=== PATIENT | female | born 1935 | race Caucasian/White ===

== ENCOUNTER 2018-09-01 11:42 | Inpatient (IN) ==
[2018-09-01] MEDS ORDERED: Mag Hydrox/Al Hydrox/Simeth 30 ML UDC PO PRN (18:11)
[2018-09-01] MEDS ORDERED: cloNIDine HCl 0.1 MG TABLET PO PRN (18:13)
[2018-09-01] MEDS: *HR* Rivaroxaban 10 MG TABLET PO SCH (21:23)
[2018-09-01] MEDS: Melatonin 3 MG TABLET PO PRN (21:26)
[2018-09-02] MEDS: Acetaminophen 325 MG TABLET PO PRN ×3 (03:55→22:14)
[2018-09-02 05:39] LABS: INR 2.1; Prothrombin Time 23.4 Seconds (9.4-12.1)
[2018-09-02] MEDS: amLODIPine 5 MG TABLET PO SCH (08:17)
[2018-09-02] MEDS: Lisinopril 20 MG TABLET PO SCH (08:17)
[2018-09-02] MEDS: Metoprolol XL (24 HR) Succ 25 MG TAB.ER.24H PO SCH (08:18)
[2018-09-02] MEDS: Furosemide 40 MG TABLET PO SCH (08:18)
[2018-09-02] MEDS: Aspirin Enteric Coated 81 MG Tablet PO SCH (08:19)
[2018-09-02 08:55] LABS: Basophils # 0.1 K/mcL (0.0-0.2); Basophils % 0.8 %; Eosinophils # 0.1 K/mcL (0.0-0.6); Eosinophils % 0.6 %; Hematocrit 33.4 % (35.3-44.9); Hemoglobin 10.7 g/dL (11.5-15.4); Immature Granulocytes % 0.4 % (0-4); Lymphocytes # 0.9 K/mcL (0.6-4.6); Lymphocytes % 10.3 %; Mean Corpuscular Hemoglobin 30.4 pg (28.0-33.3); Mean Corpuscular Volume 94.9 fL (83.0-100.0); Mean Platelet Volume 10.1 fL (9.4-12.4); Monocytes # 0.8 K/mcL (0.0-1.3); Monocytes % 9.7 %; Neutrophils # 6.5 K/mcL (1.6-8.9); Platelet Count 292 K/mcL (140-400); Red Blood Count 3.52 M/mcL (3.82-4.97); Red Cell Distribution Width 14.5 % (11.5-14.5); Segmented Neutrophils % 78.2 %; White Blood Count 8.3 K/mcL (4.3-11.1)
[2018-09-02 09:17] LABS: Albumin 3.6 g/dL (3.5-5.7); Albumin/Globulin Ratio 1.2 (1.1-2.2); Bilirubin,Total 0.6 mg/dL (0.3-1.0); Calcium 9.3 mg/dL (8.6-10.3); Globulin 3.1 g/dL (2.4-3.5); Magnesium 2.2 mg/dL (1.6-2.6); Total Protein 6.7 g/dL (6.4-8.9)
--- NOTE | 2018-09-02 10:47 | Internal Med History&Physical ---
Date of Encounter: 09/02/18 Time of Encounter: 10:42 Assessment and Plan (1) CVA (cerebral vascular accident) Current visit: Yes Status: Acute Patient treated at a local hospital for an acute CVA resulting in slight dysarthria and right hemiplegia. Patient is right sided dominant. No acute neurological changes have been noted in her exam per medical records since her admission at this facility. Patient denies any difficulty with swallow. We will have speech therapy evaluate due to patient's dysarthria. Therapy evaluation is pending with further recommendations. We will continue with current medications. We will keep a systolic blood pressure goal of less than 160. Patient with severe hypertension during her initial admission. Qualifiers: CVA mechanism: unspecified Qualified Code(s): I63.9 - Cerebral infarction, unspecified (2) HTN (hypertension) Current visit: Yes Status: Chronic Patient's vital signs have been stable since her admission. Patient with severe hypertension during her initial admission to [facility]. We will maintain a systolic blood pressure goal of less than 160. We will continue with current medications. Patient with when necessary clonidine for any systolic blood pressures greater than 160. Qualifiers: Hypertension type: essential hypertension Qualified Code(s): I10 - Essential (primary) hypertension (3) Diabetes Current visit: Yes Status: Chronic No acute issues. Patient continues with fingersticks with her readings have been maintain less than 150. We will continue with current sliding scale coverage. Qualifiers: Diabetes mellitus type: type 2 Diabetes mellitus terminal worker insulin use: without terminal worker use Diabetes mellitus complication status: with kidney complications Diabetes mellitus complication detail: with chronic kidney disease Chronic kidney disease stage: stage 3 (moderate) Qualified Code(s): E11.22 - Type 2 diabetes mellitus with diabetic chronic kidney disease; N18.3 - Chronic kidney disease, stage 3 (moderate) (4) Ulcerative colitis Current visit: Yes Status: Chronic No acute issues at this time. Patient denies any abdominal cramping or diarrhea. Will continue on current medications and monitor closely Qualifiers: Ulcerative colitis location: unspecified ulcerative colitis location Digestive disease complication type: unspecified complication Qualified Code(s): K51.919 - Ulcerative colitis, unspecified with unspecified complications (5) Atrial fibrillation Current visit: Yes Status: Chronic Patient continues with atrial fibrillation with controlled rate less than 100. We will continue on Xarelto. Qualifiers: Atrial fibrillation type: paroxysmal Qualified Code(s): I48.0 - Paroxysmal atrial fibrillation (6) CKD (chronic kidney disease) Current visit: Yes Status: Chronic No acute issues. Patient's most recent creatinine is at 1.19. We will continue with current medications and monitor patient's renal status through serial labs Qualifiers: Chronic kidney disease stage: stage 3 (moderate) Qualified Code(s): N18.3 - Chronic kidney disease, stage 3 (moderate) Internal Medicine - H&P: HPI Chief complaint: Left CVA Admitted From: Hospital to Hospital Transfer Plans for Post Hospital Care: Home History of present illness: Ms. Edwards is a 83 year old female, who was transferred to this facility from [facility] after being treated for an acute left CVA resulting in right hemiplegia and dysarthria. Patient was admitted at [facility] on 08/26/18 due to weakness to her right extremities and was also found to be very hypertensive with a systolic greater than 190. Patient had a medical history of atrial fibrillation and was on Xarelto at time of admission. Also history of hypertension, diabetes, CK D and ulcerative colitis. Patient's recovery at Hospital was uneventful and she was eventually transferred to this facility for further rehabilitation due to her hemiplegia and generalized weakness. Patient currently appears relaxed and denies any acute issues. She continues with her right hemiplegia and noted mild dysarthria. Patient denies any difficulty with swallow. Denies any discomforts or shortness of breath. Past Med Surg Social Fam HX - Past Medical History Medical history: atrial fibrillation, CHF, diabetes, GERD, hypertension, other Additional medical history: UC Psychiatric history: anxiety - Past Surgical History Surgical History: appendectomy, hysterectomy, CHEVY/BSO Additional surgical history: left toe removed, Tonsils removed - Social History Smoking Status: Never smoker Smokeless Tobacco Status: No Alcohol use: none Drug use: none - Family History Mother Living Status: Hx Family Cardiac Disorders: Yes Hx Family Respiratory Disorders: No Hx Family Cancer: No Hx Family GI Disorders: No Hx Family Endocrine Disorder: Yes Hx Family Neuromuscular Disorders: No Hx Family Neurologic Disorders: No Hx Family HEENT Disorders: No Hx Family Autoimmune Disorders: No Father Living Status: Hx Family Cardiac Disorders: Yes Hx Family Respiratory Disorders: No Hx Family Cancer: No Hx Family GI Disorders: No Hx Family Endocrine Disorder: No Hx Family Neuromuscular Disorders: No Hx Family Neurologic Disorders: No Hx Family HEENT Disorders: No Hx Family Autoimmune Disorders: No Internal Medicine - H&P: Meds Acetaminophen [Tylenol] 1,000 mg PO 1-2XD PRN 03/10/15 [History] Furosemide [Lasix] 40 mg PO QAM 03/10/15 [History] Mesalamine [Apriso] 0.75 gm PO QAM 03/10/15 [History] Omeprazole [PriLOSEC] 20 mg PO QAM 03/10/15 [History] Potassium Chloride [K-Tab ER] 20 meq PO DAILY 11/28/15 [History] Metoprolol Succinate 25 mg PO QAM 01/24/17 [History] Aspirin Enteric Coated [Aspirin EC] 81 mg PO QAM 08/28/18 [History] Lisinopril [Zestril] 40 mg PO QAM 08/28/18 [History] Rivaroxaban [Xarelto] 20 mg PO 1700 08/28/18 [History] Atorvastatin [Lipitor] 80 mg PO HS 30 Days #30 tablet 09/01/18 [Rx] Paroxetine [Paxil] 10 mg PO DAILY #30 tablet 09/01/18 [Rx] amLODIPine [Norvasc] 5 mg PO DAILY #30 tablet 09/01/18 [Rx] Allergy/AdvReac Type Severity Reaction Status Date / Time ampicillin Allergy Hives Verified 08/28/18 10:05 morphine AdvReac Hallucinati Verified 08/28/18 10:05 ng All Systems PM: A 10-system review of systems was performed and is negative for pertinent findings except as documented above in the HPI. - Constitutional Constitutional: as per HPI - EENT Eyes: as per HPI Ears: as per HPI, no ear discharge, no ear pain, no tinnitus Nose, mouth and throat: as per HPI, no dysphagia, no nasal discharge, no neck pain, no sore throat - Breasts Breasts: as per HPI - Cardiovascular Cardiovascular ROS IM: as per HPI, no chest pain, no diaphoresis, no dyspnea, no lightheadedness, no palpitations, no syncope - Respiratory Respiratory: as per HPI, no cough, no dyspnea, no wheezing, no excessive phlegm production - Gastrointestinal Gastrointestinal: as per HPI, no abdominal pain, no diarrhea, no hematemesis, no hematochezia, no melena, no nausea, no vomiting - Genitourinary Genitourinary: as per HPI, no change in urinary stream, no dysuria, no flank pain, no hematuria - Musculoskeletal Musculoskeletal ROS IM: as per HPI, no numbness, no tingling - Integumentary Integumentary IM: as per HPI, no rash, no unusual bruising - Neurological Neurological ROS: as per HPI, no confusion, no convulsions, no focal weakness, no numbness, no tingling, no tremor(s) - Psychiatric Psychiatric: as per HPI - Hematologic/Lymphatic Hematologic/Lymphatic: no easy bruising - Constitutional Vitals: Temp Pulse Resp BP Pulse Ox 97.8 F 75 26 139/80 95 09/02/18 07:21 09/02/18 07:21 09/02/18 07:21 09/02/18 07:21 09/02/18 07:21 General appearance: Present: A&O X 3, pleasant, answers questions appropriately - Head Head exam: Present: atraumatic, normocephalic - Eye Eye exam: Present: PERRL, conjuntiva pink, sclera anicteric Pupils: Present: PERRL - Neck Neck exam general surgery: Present: supple, trachea midline. Absent: lymphadenopathy - Respiratory Respiratory exam: Present: decreased breath sounds, CTAB. Absent: accessory muscle use, rales, rhonchi, wheezes - Cardiovascular Cardiovascular exam: Present: RRR, +S1, +S2. Absent: diastolic murmur, gallop, rubs, systolic murmur - GI/Abdominal GI/Abdominal exam: Present: normal bowel sounds, soft, no peritoneal signs. Absent: distended, tenderness - Extremities Exam Extremities exam: Present: warm, radial pulses palpable and symmetrical. Absent: calf tenderness, cyanotic, pedal edema - Neurological Exam Neurological exam: Present: CN II-XII intact, oriented X3, facial droop, speech deficit. Absent: pronater drift Additional comments: Patient with slight right facial droop and slight dysarthria. Right hemiplegic. Left extremities with muscle strength 5/5 - Skin Skin exam: Present: dry, intact Internal Med - H&P Results - Labs CBC & Chem 7: 09/02/18 08:02 09/02/18 08:02 Labs: Short CBC 09/02/18 Range/Units 08:02 WBC 8.3 (4.3-11.1) K/mcL Hgb 10.7 L (11.5-15.4) g/dL Hct 33.4 L (35.3-44.9) % Plt Count 292 (140-400) K/mcL Neutrophils # 6.5 (1.6-8.9) K/mcL BMP 09/02/18 08:02 Sodium 137 Potassium 4.0 Chloride 108 H Carbon Dioxide 22 L BUN 33 H Creatinine 1.19 Glucose 127 H Calcium 9.3 Liver Function 09/02/18 Range/Units 08:02 Total Bilirubin 0.6 (0.3-1.0) mg/dL AST 12 L (13-39) Units/L ALT 10 (7-52) Units/L Alkaline Phosphatase 66 (34-104) Units/L Albumin 3.6 (3.5-5.7) g/dL
[2018-09-02] MEDS: Ondansetron ODT 4 MG TAB.RAPDIS SL PRN (12:11)
--- NOTE | 2018-09-02 15:44 | Psychological Evaluation ---
Date of Encounter: 09/02/18 Time of Encounter: 10:00 History of Present Illness History of present illness: Ms. Edwards is a 83 year old female patient with a left MCA stroke by clinical history. She had sudden onset or speech changes, facial droop, right dense hemiparesis about a week ago. She had no other associated symptoms including no chest pain or breathing problems. She was admitted to [facility] and had supportive care. She notes that she was on Coumadin which was therapeutic at the time of her stroke. She has had hypertension and states this is been hard to control. She was admitted here for rehabilitation. Past Medical History - Psychiatric History Psychiatric history: Reports: no psych history Home Medications and Allergies Acetaminophen [Tylenol] 1,000 mg PO 1-2XD PRN 03/10/15 [History] Furosemide [Lasix] 40 mg PO QAM 03/10/15 [History] Mesalamine [Apriso] 0.75 gm PO QAM 03/10/15 [History] Omeprazole [PriLOSEC] 20 mg PO QAM 03/10/15 [History] Potassium Chloride [K-Tab ER] 20 meq PO DAILY 11/28/15 [History] Metoprolol Succinate 25 mg PO QAM 01/24/17 [History] Aspirin Enteric Coated [Aspirin EC] 81 mg PO QAM 08/28/18 [History] Lisinopril [Zestril] 40 mg PO QAM 08/28/18 [History] Rivaroxaban [Xarelto] 20 mg PO 1700 08/28/18 [History] Atorvastatin [Lipitor] 80 mg PO HS 30 Days #30 tablet 09/01/18 [Rx] Paroxetine [Paxil] 10 mg PO DAILY #30 tablet 09/01/18 [Rx] amLODIPine [Norvasc] 5 mg PO DAILY #30 tablet 09/01/18 [Rx] Allergy/AdvReac Type Severity Reaction Status Date / Time ampicillin Allergy Hives Verified 08/28/18 10:05 morphine AdvReac Hallucinati Verified 08/28/18 10:05 ng Social History - Social History Social History: for 59 years. Lives with adult daughter for the past 8 years in [place]. 2 sons are in [place]. 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 High school diploma. - Tobacco Use Smoking Status: Never smoker - Alcohol Use Alcohol Use: none - Drug Use Drug Use: none Cognitive/Emotional Assessment - Cognitive Ability Level of Alertness: Alert Orientation: Person, Place, Time Speech Pattern: Normal rate, Normal rhythm, Normal tone, Appropriate Thought Process: Intact Calculations: Able to spell WORLD backw Additional Findings: Able to recall 0/3 words after 5min and 1/3 categorical cue. Digits forward 6 and 4 digits backward. Knew pres, previous pres, gov. Able to perform mental mathematics and serial 3's from 20. - Emotional Status Mood Description: Anxious Affect Description: Tearful Coping Ability: Unsure about ability to cope Additional Findings: Processed mortality and fear of . Assessment & Plan - Prognosis Prognosis: Good - Treatment Plan Treatment Plan/Recommendations: Assist with developing and training coping strategies for anxiety and adjusting to changes in functioning since CVA. Further eval cognition. Treatment Frequency: weekly Next Session Date: 09/09/18 Procedures - Participants Therapy Participant: Patient - Session Time Session Start Time: 10:00 Session Stop Time: 10:30
[2018-09-02] MEDS: *HR* Rivaroxaban 10 MG TABLET PO SCH (17:01)
[2018-09-02] MEDS: Mesalamine 250 MG CAPSULE.ER PO SCH (17:01)
[2018-09-02] MEDS: Melatonin 3 MG TABLET PO PRN (22:14)
[2018-09-03] MEDS: Mesalamine 250 MG CAPSULE.ER PO SCH (08:59)
[2018-09-03] MEDS: Furosemide 40 MG TABLET PO SCH (09:00)
[2018-09-03] MEDS: Aspirin Enteric Coated 81 MG Tablet PO SCH (09:00)
[2018-09-03] MEDS: Metoprolol XL (24 HR) Succ 25 MG TAB.ER.24H PO SCH (09:00)
[2018-09-03] MEDS: Lisinopril 20 MG TABLET PO SCH (09:01)
[2018-09-03] MEDS: amLODIPine 5 MG TABLET PO SCH (09:01)
--- NOTE | 2018-09-03 11:08 | Internal Med Progress Note ---
Date of Encounter: 09/03/18 Time of Encounter: 11:06 - Assessment and plan (1) CVA (cerebral vascular accident) Current Visit: Yes Status: Acute Assessment and plan: No acute issues. Patient's neurological exam remains unchanged since her admission, which shows right hemiplegia. Patient has patient's pain and therapy, but complaint of slight fatigue. We will continue with current plan of care and medications. Vital signs stable. Qualifiers: CVA mechanism: unspecified Qualified Code(s): I63.9 - Cerebral infarction, unspecified (2) HTN (hypertension) Current Visit: Yes Status: Chronic Assessment and plan: No acute issues. Patient's blood pressures remained stable. We will continue with goal of less than 160 systolic. We will continue with current medications Qualifiers: Hypertension type: essential hypertension Qualified Code(s): I10 - Essential (primary) hypertension (3) Diabetes Current Visit: Yes Status: Chronic Assessment and plan: No acute issues. Patient's fingerstick show most readings less than 150. We will continue with current coverage. Qualifiers: Diabetes mellitus type: type 2 Diabetes mellitus fpc insulin use: without fpc use Diabetes mellitus complication status: with kidney complications Diabetes mellitus complication detail: with chronic kidney disease Chronic kidney disease stage: stage 3 (moderate) Qualified Code(s): E11.22 - Type 2 diabetes mellitus with diabetic chronic kidney disease; N18.3 - Chronic kidney disease, stage 3 (moderate) (4) Ulcerative colitis Current Visit: Yes Status: Chronic Assessment and plan: No acute issues. Patient denies any loose stools or abdominal cramping. Will continue with current plan of care Qualifiers: Ulcerative colitis location: unspecified ulcerative colitis location Digestive disease complication type: unspecified complication Qualified Code(s): K51.919 - Ulcerative colitis, unspecified with unspecified complications (5) Atrial fibrillation Current Visit: Yes Status: Chronic Assessment and plan: No acute issues. Patient's heart rate remains controlled at less than 100. Continue on current medications. Qualifiers: Atrial fibrillation type: paroxysmal Qualified Code(s): I48.0 - Paroxysmal atrial fibrillation (6) CKD (chronic kidney disease) Current Visit: Yes Status: Chronic Assessment and plan: No acute issues. Patient's last creatinine was 1.19. We will continue with current medications and monitor patient's renal status Qualifiers: Chronic kidney disease stage: stage 3 (moderate) Qualified Code(s): N18.3 - Chronic kidney disease, stage 3 (moderate) - Subjective Interval history: Patient appears relaxed currently denies any discomforts or shortness of breath. Patient states she became fatigued during her therapy but relates no issues. - Constitutional Vitals: Temp Pulse Resp BP Pulse Ox 98.3 F 70 16 129/71 94 09/03/18 07:36 09/03/18 07:36 09/03/18 07:36 09/03/18 07:36 09/03/18 07:36 General appearance: Present: A&O X 3, pleasant, answers questions appropriately - Head Head exam: Present: atraumatic, normocephalic - Eye Eye exam: Present: PERRL, conjuntiva pink, sclera anicteric Pupils: Present: PERRL - Neck Neck exam general surgery: Present: supple, trachea midline. Absent: lymphadenopathy - Respiratory Respiratory exam: Present: CTAB. Absent: accessory muscle use, rales, rhonchi, wheezes - Cardiovascular Cardiovascular exam: Present: RRR, +S1, +S2. Absent: diastolic murmur, gallop, rubs, systolic murmur - GI/Abdominal GI/Abdominal exam: Present: normal bowel sounds, soft, no peritoneal signs. Absent: distended, tenderness - Extremities Exam Extremities exam: Present: warm, radial pulses palpable and symmetrical. Absent: calf tenderness, cyanotic, pedal edema - Neurological Exam Neurological exam: Present: CN II-XII intact, oriented X3, facial droop, speech deficit. Absent: pronater drift Additional comments: Patient continues with right hemiplegia. Left extremity is 5/5 muscle strength. Slight right facial droop with slight dysarthria noted. - Skin Skin exam: Present: dry, intact Internal Medicine: Result - Labs CBC & Chem 7: 09/02/18 08:02 09/02/18 08:02 - ABG Interpretation ABG results: PT/INR, D-dimer PT 23.4 Seconds (9.4-12.1) H D 09/02/18 05:10 Consult Discharge Plan - Plan Referrals: Tfifany Villasenor MD [Primary Care Provider] -
[2018-09-03] MEDS: *HR* Rivaroxaban 10 MG TABLET PO SCH (16:16)
[2018-09-03] MEDS: Acetaminophen 325 MG TABLET PO PRN (21:21)
[2018-09-03] MEDS: Melatonin 3 MG TABLET PO PRN (21:21)
[2018-09-04] MEDS: amLODIPine 5 MG TABLET PO SCH (09:46)
[2018-09-04] MEDS: Lisinopril 20 MG TABLET PO SCH (09:46)
[2018-09-04] MEDS: Mesalamine 250 MG CAPSULE.ER PO SCH (09:46)
[2018-09-04] MEDS: Furosemide 40 MG TABLET PO SCH (09:47)
[2018-09-04] MEDS: Metoprolol XL (24 HR) Succ 25 MG TAB.ER.24H PO SCH (09:47)
[2018-09-04] MEDS: Aspirin Enteric Coated 81 MG Tablet PO SCH (09:47)
[2018-09-04] MEDS: Acetaminophen 325 MG TABLET PO PRN ×2 (09:49→20:41)
[2018-09-04 11:28] LABS: Bilirubin,Urine Negative (Negative); Blood,Urine Negative (Negative); Clarity,Urine Cloudy (Clear); Color,Urine Yellow (Yellow); Glucose,Urine (UA) Normal (Normal); Ketones,Urine Negative (Negative); Leukocyte Esterase,Urine Small (Negative); Nitrite,Urine Negative (Negative); PH,Urine 5.5 pH Units (5.0-8.0); Protein,Urine 100 mg/dL (Neg-Trace); Urobilinogen,Urine Normal (Normal)
--- NOTE | 2018-09-04 11:30 | Internal Med Progress Note ---
Date of Encounter: 09/04/18 Time of Encounter: 11:28 - Assessment and plan (1) CVA (cerebral vascular accident) Current Visit: Yes Status: Acute Assessment and plan: No acute issues. Patient's neurological exam remains unchanged since her admission, which shows right hemiplegia. Patient has patient's pain and therapy, but complaint of slight fatigue. We will continue with current plan of care and medications. Vital signs stable. Qualifiers: CVA mechanism: unspecified Qualified Code(s): I63.9 - Cerebral infarction, unspecified (2) HTN (hypertension) Current Visit: Yes Status: Chronic Assessment and plan: No acute issues. Patient's blood pressures remained stable. We will continue with goal of less than 160 systolic. We will continue with current medications Qualifiers: Hypertension type: essential hypertension Qualified Code(s): I10 - Essential (primary) hypertension (3) Diabetes Current Visit: Yes Status: Chronic Assessment and plan: No acute issues. Patient's fingerstick show most readings less than 150. We will continue with current coverage. Qualifiers: Diabetes mellitus type: type 2 Diabetes mellitus snf insulin use: without snf use Diabetes mellitus complication status: with kidney complications Diabetes mellitus complication detail: with chronic kidney disease Chronic kidney disease stage: stage 3 (moderate) Qualified Code(s): E11.22 - Type 2 diabetes mellitus with diabetic chronic kidney disease; N18.3 - Chronic kidney disease, stage 3 (moderate) (4) Ulcerative colitis Current Visit: Yes Status: Chronic Assessment and plan: No acute issues. Patient denies any loose stools or abdominal cramping. Will continue with current plan of care Qualifiers: Ulcerative colitis location: unspecified ulcerative colitis location Digestive disease complication type: unspecified complication Qualified Code(s): K51.919 - Ulcerative colitis, unspecified with unspecified complications (5) Atrial fibrillation Current Visit: Yes Status: Chronic Assessment and plan: No acute issues. Patient's heart rate remains controlled at less than 100. Continue on current medications to include Xarelto Qualifiers: Atrial fibrillation type: paroxysmal Qualified Code(s): I48.0 - Paroxysmal atrial fibrillation (6) CKD (chronic kidney disease) Current Visit: Yes Status: Chronic Assessment and plan: No acute issues. Patient's last creatinine was 1.19. We will continue with current medications and monitor patient's renal status Qualifiers: Chronic kidney disease stage: stage 3 (moderate) Qualified Code(s): N18.3 - Chronic kidney disease, stage 3 (moderate) - Time Spent With Patient less than 15 minutes - Subjective Interval history: Patient appears relaxed currently denies any discomforts or shortness of breath. - Constitutional Vitals: Temp Pulse Resp BP Pulse Ox 97.6 F 60 16 144/72 97 09/04/18 07:00 09/04/18 07:00 09/04/18 07:00 09/04/18 07:00 09/04/18 07:00 General appearance: Present: A&O X 3, pleasant, answers questions appropriately - Head Head exam: Present: atraumatic, normocephalic - Eye Eye exam: Present: PERRL, conjuntiva pink, sclera anicteric Pupils: Present: PERRL - Neck Neck exam general surgery: Present: supple, trachea midline. Absent: lymphadenopathy - Respiratory Respiratory exam: Present: CTAB. Absent: accessory muscle use, rales, rhonchi, wheezes - Cardiovascular Cardiovascular exam: Present: RRR, +S1, +S2. Absent: diastolic murmur, gallop, rubs, systolic murmur - GI/Abdominal GI/Abdominal exam: Present: normal bowel sounds, soft, no peritoneal signs. Absent: distended, tenderness - Extremities Exam Extremities exam: Present: warm, radial pulses palpable and symmetrical. Absent: calf tenderness, cyanotic, pedal edema - Neurological Exam Neurological exam: Present: CN II-XII intact, oriented X3, facial droop, speech deficit. Absent: pronater drift Additional comments: Patient continues with right hemiplegia. Left extremity is 5/5 muscle strength. Continued facial droop with dysarthria. - Skin Skin exam: Present: dry, intact Internal Medicine: Result - Labs CBC & Chem 7: 09/02/18 08:02 09/02/18 08:02 - ABG Interpretation ABG results: PT/INR, D-dimer PT 23.4 Seconds (9.4-12.1) H D 09/02/18 05:10 Consult Discharge Plan - Plan Referrals: Tiffany Villasenor MD [Primary Care Provider] -
[2018-09-04 11:36] LABS: WBC,Urine 30-50 per hpf (0-3)
[2018-09-04 11:37] LABS: Bacteria,Urine Moderate per hpf (None-Few); Squamous Epithelial Cell,Urine Few per lpf (None-Few)
[2018-09-04] MEDS: *HR* Rivaroxaban 15 MG TABLET PO SCH (20:41)
[2018-09-04] MEDS: Melatonin 3 MG TABLET PO PRN (20:43)
[2018-09-05] MEDS: Lisinopril 20 MG TABLET PO SCH (09:25)
[2018-09-05] MEDS: Furosemide 40 MG TABLET PO SCH (09:25)
[2018-09-05] MEDS: Metoprolol XL (24 HR) Succ 25 MG TAB.ER.24H PO SCH (09:25)
[2018-09-05] MEDS: Mesalamine 250 MG CAPSULE.ER PO SCH (09:26)
[2018-09-05] MEDS: Aspirin Enteric Coated 81 MG Tablet PO SCH (09:26)
[2018-09-05] MEDS: amLODIPine 5 MG TABLET PO SCH (09:27)
--- NOTE | 2018-09-05 18:04 | Internal Med Progress Note ---
Date of Encounter: 09/05/18 Time of Encounter: 15:33 - Subjective Interval history: - Assessment and plan (1) CVA (cerebral vascular accident) Current Visit: Yes Status: Acute Assessment and plan: No acute issues. Patient's neurological exam with no acute changes , which shows right hemiplegia. Patient has patient's pain and therapy, but complaint of slight fatigue at times We will continue with current plan of care and medications. Vital signs stable. Qualifiers: CVA mechanism: unspecified Qualified Code(s): I63.9 - Cerebral infarction, unspecified (2) HTN (hypertension) Current Visit: Yes Status: Chronic Assessment and plan: No acute issues. Patient's blood pressures remained stable. We will continue with goal of less than 160 systolic. We will continue with current medications Qualifiers: Hypertension type: essential hypertension Qualified Code(s): I10 - E ssential (primary) hypertension (3) Diabetes Current Visit: Yes Status: Chronic Assessment and plan: No acute issues. Patient's fingerstick show most readings less than 150. We will continue with current coverage. Qualifiers: Diabetes mellitus type: type 2 Diabetes mellitus termite control technician insulin use: without termite control technician use Diabetes mellitus complication status: with kidney complications Diabetes mellitus complication detail: with chronic kidney disease Chronic kidney disease stage: stage 3 (moderate) Qualified Code(s): E11.22 - Type 2 diabetes mellitus with diabetic chronic kidney disease; N18.3 - Chronic kidney disease, stage 3 (moderate) (4) Ulcerative colitis Current Visit: Yes Status: Chronic Assessment and plan: No acute issues. Patient denies any loose stools or abdominal cramping. no melana Will continue with current plan of care Qualifiers: Ulcerative colitis location: unspecified ulcerative colitis location Digestive disease complication type: unspecified complication Qualified Code(s): K51.919 - Ulcerative colitis, unspecified with unspecified complications (5) Atrial fibrillation Current Visit: Yes Status: Chronic Assessment and plan: No acute issues. Patient's heart rate remains controlled at less than 100. Continue on current medications to include Xarelto Qualifiers: Atrial fibrillation type: paroxysmal Qualified Code(s): I48.0 - Paroxysmal atrial fibrillation (6) CKD (chronic kidney disease) Current Visit: Yes Status: Chronic Assessment and plan: No acute issues. Patient's last creatinine was 1.19. We will continue with current medications and monitor patient's renal status Qualifiers: Chronic kidney disease stage: stage 3 (moderate) Qualified Code(s): N18.3 - Chronic kidney disease, stage 3 (moderate) - Time Spent With Patient less than 15 minutes - Subjective Interval history: Patient appears relaxed and ate well. currently denies any discomforts or shortness of breath. - EXAM General appearance: Present: alert, pleasant - Head Head exam: Present: atraumatic, normocephalic - Eye Eye exam: Present: PERRL, conjuntiva pink, sclera anicteric Pupils: Present: PERRL - Neck Neck exam general surgery: Present: supple, trachea midline. Absent: lymphadenopathy - Respiratory Respiratory exam: Present: CTAB. Absent: accessory muscle use, rales, rhonchi, wheezes - Cardiovascular Cardiovascular exam: Present: RRR, +S1, +S2. Absent: diastolic murmur, gallop, rubs, systolic murmur - GI/Abdominal GI/Abdominal exam: Present: normal bowel sounds, soft, no peritoneal signs. Absent: distended, tenderness - Extremities Exam Extremities exam: Present: warm, radial pulses palpable and symmetrical. Absent: calf tenderness, cyanotic, pedal edema - Neurological Exam Neurological exam: Present: CN II-XII intact, oriented X3, facial droop, speech deficit. Absent: pronater drift Additional comments: Patient continues with right hemiplegia. Left extremity is 5/5 muscle strength. Continued facial droop with dysarthria. - Skin Skin exam: Present: dry, intact - Constitutional Vitals: Temp Pulse Resp BP Pulse Ox 98.0 F 65 15 162/78 97 09/05/18 07:00 09/05/18 07:00 09/05/18 07:00 09/05/18 07:00 09/05/18 07:00 General appearance: Present: A&O X 3, pleasant, answers questions appropriately Internal Medicine: Result - Labs CBC & Chem 7: 09/02/18 08:02 09/02/18 08:02 - ABG Interpretation ABG results: PT/INR, D-dimer PT 23.4 Seconds (9.4-12.1) H D 09/02/18 05:10 Consult Discharge Plan - Plan Referrals: Tiffany Villasenor MD [Primary Care Provider] -
[2018-09-05] MEDS: Melatonin 3 MG TABLET PO PRN (21:31)
[2018-09-05] MEDS: Acetaminophen 325 MG TABLET PO PRN (21:31)
[2018-09-05] MEDS: *HR* Rivaroxaban 15 MG TABLET PO SCH (21:31)
[2018-09-05] MEDS: Bisacodyl 10 MG RECTAL SUPPOSITORY RC PRN (21:32)
[2018-09-06] MEDS: amLODIPine 5 MG TABLET PO SCH (08:34)
[2018-09-06] MEDS: Metoprolol XL (24 HR) Succ 25 MG TAB.ER.24H PO SCH (08:35)
[2018-09-06] MEDS: Aspirin Enteric Coated 81 MG Tablet PO SCH (08:35)
[2018-09-06] MEDS: Lisinopril 20 MG TABLET PO SCH (08:35)
[2018-09-06] MEDS: Mesalamine 250 MG CAPSULE.ER PO SCH (08:35)
[2018-09-06] MEDS: Furosemide 40 MG TABLET PO SCH (08:35)
[2018-09-06] MEDS: Acetaminophen 325 MG TABLET PO PRN (17:06)
--- NOTE | 2018-09-06 19:11 | Internal Med Progress Note ---
Date of Encounter: 09/06/18 Time of Encounter: 18:10 - Subjective Interval history: - Assessment and plan (1) CVA (cerebral vascular accident) Current Visit: Yes Status: Acute Assessment and plan: No acute issues. Patient's neurological exam with no acute changes , which shows right hemiplegia. Patient has patient's pain and therapy, but complaint of slight fatigue at times We will continue with current plan of care and medications. Vital signs stable. Qualifiers: CVA mechanism: unspecified Qualified Code(s): I63.9 - Cerebral infarction, unspecified (2) HTN (hypertension) Current Visit: Yes Status: Chronic Assessment and plan: No acute issues. Patient's blood pressures remained stable. We will continue with goal of less than 160 systolic. We will continue with current medications Qualifiers: Hypertension type: essential hypertension Qualified Code(s): I10 - E ssential (primary) hypertension (3) Diabetes Current Visit: Yes Status: Chronic Assessment and plan: No acute issues. Patient's fingerstick show most readings less than 150. We will continue with current coverage. Qualifiers: Diabetes mellitus type: type 2 Diabetes mellitus long term care administrator insulin use: without long term care administrator use Diabetes mellitus complication status: with kidney complications Diabetes mellitus complication detail: with chronic kidney disease Chronic kidney disease stage: stage 3 (moderate) Qualified Code(s): E11.22 - Type 2 diabetes mellitus with diabetic chronic kidney disease; N18.3 - Chronic kidney disease, stage 3 (moderate) (4) Ulcerative colitis Current Visit: Yes Status: Chronic Assessment and plan: No acute issues. Patient denies any loose stools or abdominal cramping. no melana Will continue with current plan of care Qualifiers: Ulcerative colitis location: unspecified ulcerative colitis location Digestive disease complication type: unspecified complication Qualified Code(s): K51.919 - Ulcerative colitis, unspecified with unspecified complications (5) Atrial fibrillation Current Visit: Yes Status: Chronic Assessment and plan: No acute issues. Patient's heart rate remains controlled at less than 100. Continue on current medications to include Xarelto Qualifiers: Atrial fibrillation type: paroxysmal Qualified Code(s): I48.0 - Paroxysmal atrial fibrillation (6) CKD (chronic kidney disease) Current Visit: Yes Status: Chronic Assessment and plan: No acute issues. Patient's last creatinine was 1.19. We will continue with current medications and monitor patient's renal status Qualifiers: Chronic kidney disease stage: stage 3 (moderate) Qualified Code(s): N18.3 - Chronic kidney disease, stage 3 (moderate) - Time Spent With Patient less than 15 minutes - Subjective Interval history: Patient appears relaxed and ate well. currently denies any discomforts or shortness of breath. - EXAM General appearance: Present: alert, pleasant - Head Head exam: Present: atraumatic, normocephalic - Eye Eye exam: Present: PERRL, conjuntiva pink, sclera anicteric Pupils: Present: PERRL - Neck Neck exam general surgery: Present: supple, trachea midline. Absent: lymphadenopathy - Respiratory Respiratory exam: Present: CTAB. Absent: accessory muscle use, rales, rhonchi, wheezes - Cardiovascular Cardiovascular exam: Present: RRR, +S1, +S2. Absent: diastolic murmur, gallop, rubs, systolic murmur - GI/Abdominal GI/Abdominal exam: Present: normal bowel sounds, soft, no peritoneal signs. Absent: distended, tenderness - Extremities Exam Extremities exam: Present: warm, radial pulses palpable and symmetrical. Absent: calf tenderness, cyanotic, pedal edema - Neurological Exam Neurological exam: Present: CN II-XII intact, oriented X3, facial droop, speech deficit. Absent: pronater drift Additional comments: Patient continues with right hemiplegia. Left extremity is 5/5 muscle strength. Continued facial droop with dysarthria. - Skin Skin exam: Present: dry, intact - Constitutional Vitals: Temp Pulse Resp BP Pulse Ox 98.3 F 65 16 152/86 98 09/06/18 07:00 09/06/18 07:00 09/06/18 07:00 09/06/18 07:00 09/06/18 07:00 General appearance: Present: A&O X 3, pleasant, answers questions appropriately Internal Medicine: Result - Labs CBC & Chem 7: 09/02/18 08:02 09/02/18 08:02 Labs: Urine 09/04/18 Range/Units 11:20 Urine Color Yellow (Yellow) Urine Clarity Cloudy A (Clear) Urine pH 5.5 (5.0-8.0) pH Units Ur Specific [place] 1.020 (1.010-1.025) Urine Protein 100 H (Neg-Trace) mg/dL Urine Glucose (UA) Normal (Normal) mg/dL - ABG Interpretation ABG results: PT/INR, D-dimer PT 23.4 Seconds (9.4-12.1) H D 09/02/18 05:10 Consult Discharge Plan - Plan Referrals: Tiffany Villasenor MD [Primary Care Provider] -
[2018-09-06] MEDS: *HR* Rivaroxaban 15 MG TABLET PO SCH (21:19)
[2018-09-06] MEDS: Melatonin 3 MG TABLET PO PRN (21:19)
[2018-09-07] MEDS: Metoprolol XL (24 HR) Succ 25 MG TAB.ER.24H PO SCH (08:15)
[2018-09-07] MEDS: Lisinopril 20 MG TABLET PO SCH (08:15)
[2018-09-07] MEDS: Mesalamine 250 MG CAPSULE.ER PO SCH (08:15)
[2018-09-07] MEDS: Aspirin Enteric Coated 81 MG Tablet PO SCH (08:15)
[2018-09-07] MEDS: amLODIPine 5 MG TABLET PO SCH (08:15)
[2018-09-07] MEDS: Furosemide 40 MG TABLET PO SCH (08:15)
--- NOTE | 2018-09-07 14:27 | Internal Med Progress Note ---
Date of Encounter: 09/07/18 Time of Encounter: 14:25 - Assessment and plan (1) UTI (urinary tract infection) Current Visit: Yes Status: Acute Assessment and plan: Macrobid 100 mg twice a 5 days. denies urinary symptoms. Qualifiers: Urinary tract infection type: site unspecified Hematuria presence: without hematuria Qualified Code(s): N39.0 - Urinary tract infection, site not specified (2) Diabetes Current Visit: Yes Status: Chronic Assessment and plan: continue fingerstick bloods sugars. continue current medication. controlled. Qualifiers: Diabetes mellitus type: type 2 Diabetes mellitus intermission coordinator insulin use: without nursing home use Diabetes mellitus complication status: with kidney complications Diabetes mellitus complication detail: with chronic kidney disease Chronic kidney disease stage: stage 3 (moderate) Qualified Code(s): E11.22 - Type 2 diabetes mellitus with diabetic chronic kidney disease; N18.3 - Chronic kidney disease, stage 3 (moderate) (3) Hypertension Current Visit: Yes Status: Acute Assessment and plan: ccontrolled with current medication. Monitor blood pressure. Qualifiers: Hypertension type: unspecified secondary hypertension Qualified Code(s): I15.9 - Secondary hypertension, unspecified; I15 - Secondary hypertension (4) Atrial fibrillation Current Visit: Yes Status: Chronic Assessment and plan: rate and rythm controlled. continue xarelto. Qualifiers: Atrial fibrillation type: paroxysmal Qualified Code(s): I48.0 - Paroxysmal atrial fibrillation (5) CVA (cerebral vascular accident) Current Visit: Yes Status: Acute Assessment and plan: no new neurological deficits. participating with PT, OT and ST, will follow progress. f/u with neuro as scheduled. Qualifiers: CVA mechanism: unspecified Qualified Code(s): I63.9 - Cerebral infarction, unspecified - Time Spent With Patient less than 15 minutes - Subjective Interval history: pariticpating well with therapy. will start Macrobid for positive UTI> AMBULATING WITH QUAD CANE> Denies fever, ills, nausea voming or diarrhea. Denies shortness of breath or chest pain - Constitutional Vitals: Temp Pulse Resp BP Pulse Ox 98.5 F 57 16 157/91 96 09/07/18 07:00 09/07/18 07:00 09/07/18 07:00 09/07/18 07:00 09/07/18 07:00 General appearance: Present: A&O X 3, pleasant, answers questions appropriately - Head Head exam: Present: atraumatic, normocephalic - Eye Eye exam: Present: PERRL, conjuntiva pink, sclera anicteric Pupils: Present: PERRL - Neck Neck exam general surgery: Present: supple, trachea midline. Absent: lymphadenopathy - Respiratory Respiratory exam: Present: CTAB. Absent: accessory muscle use, rales, rhonchi, wheezes - Cardiovascular Cardiovascular exam: Present: RRR, +S1, +S2. Absent: diastolic murmur, gallop, rubs, systolic murmur - GI/Abdominal GI/Abdominal exam: Present: normal bowel sounds, soft, no peritoneal signs. Absent: distended, tenderness - Extremities Exam Extremities exam: Present: warm, radial pulses palpable and symmetrical. Absent: calf tenderness, cyanotic, pedal edema Additional comments: right hemiplegia - Neurological Exam Neurological exam: Present: CN II-XII intact, oriented X3, no focal deficits. Absent: pronater drift, facial droop, speech deficit - Skin Skin exam: Present: dry, intact Internal Medicine: Result - Labs CBC & Chem 7: 09/02/18 08:02 09/02/18 08:02 - ABG Interpretation ABG results: PT/INR, D-dimer PT 23.4 Seconds (9.4-12.1) H D 09/02/18 05:10 Consult Discharge Plan - Plan Referrals: Tiffany Villasenor MD [Primary Care Provider] -
[2018-09-07] MEDS: Nitrofurantoin (BID) 100 MG CAPSULE PO SCH (16:33)
[2018-09-07 17:22] LABS: Basophils # 0.1 K/mcL (0.0-0.2); Basophils % 0.7 %; Eosinophils # 0.1 K/mcL (0.0-0.6); Eosinophils % 1.9 %; Hematocrit 35.3 % (35.3-44.9); Hemoglobin 11.3 g/dL (11.5-15.4); Immature Granulocytes % 0.5 % (0-4); Lymphocytes # 0.8 K/mcL (0.6-4.6); Lymphocytes % 11.1 %; Mean Corpuscular Hemoglobin 30.2 pg (28.0-33.3); Mean Corpuscular Volume 94.4 fL (83.0-100.0); Mean Platelet Volume 9.1 fL (9.4-12.4); Monocytes # 0.7 K/mcL (0.0-1.3); Monocytes % 9.5 %; Neutrophils # 5.8 K/mcL (1.6-8.9); Platelet Count 343 K/mcL (140-400); Red Blood Count 3.74 M/mcL (3.82-4.97); Red Cell Distribution Width 14.4 % (11.5-14.5); Segmented Neutrophils % 76.3 %; White Blood Count 7.6 K/mcL (4.3-11.1)
[2018-09-07 17:41] LABS: Albumin 3.8 g/dL (3.5-5.7); Albumin/Globulin Ratio 1.1 (1.1-2.2); Bilirubin,Total 0.4 mg/dL (0.3-1.0); Calcium 9.4 mg/dL (8.6-10.3); Globulin 3.5 g/dL (2.4-3.5); Potassium 4.3 mEq/L (3.5-5.1); Total Protein 7.3 g/dL (6.4-8.9)
[2018-09-07] MEDS: Melatonin 3 MG TABLET PO PRN (21:02)
[2018-09-07] MEDS: *HR* Rivaroxaban 15 MG TABLET PO SCH (21:02)
[2018-09-08] MEDS: amLODIPine 5 MG TABLET PO SCH (09:40)
[2018-09-08] MEDS: Lisinopril 20 MG TABLET PO SCH (09:40)
[2018-09-08] MEDS: Furosemide 40 MG TABLET PO SCH (09:40)
[2018-09-08] MEDS: Metoprolol XL (24 HR) Succ 25 MG TAB.ER.24H PO SCH (09:40)
[2018-09-08] MEDS: Nitrofurantoin (BID) 100 MG CAPSULE PO SCH ×2 (09:40→17:23)
[2018-09-08] MEDS: Mesalamine 250 MG CAPSULE.ER PO SCH (09:40)
[2018-09-08] MEDS: Aspirin Enteric Coated 81 MG Tablet PO SCH (09:40)
--- NOTE | 2018-09-08 10:25 | Internal Med Progress Note ---
Date of Encounter: 09/08/18 Time of Encounter: 10:22 - Assessment and plan (1) UTI (urinary tract infection) Current Visit: Yes Status: Acute Assessment and plan: continue macrobid. denies urinary symptoms. Qualifiers: Urinary tract infection type: site unspecified Hematuria presence: without hematuria Qualified Code(s): N39.0 - Urinary tract infection, site not specified (2) Diabetes Current Visit: Yes Status: Chronic Assessment and plan: continue fingerstick bloods sugars. continue current medication. controlled. Qualifiers: Diabetes mellitus type: type 2 Diabetes mellitus correction insulin use: without correction use Diabetes mellitus complication status: with kidney complications Diabetes mellitus complication detail: with chronic kidney disease Chronic kidney disease stage: stage 3 (moderate) Qualified Code(s): E11.22 - Type 2 diabetes mellitus with diabetic chronic kidney disease; N18.3 - Chronic kidney disease, stage 3 (moderate) (3) Hypertension Current Visit: Yes Status: Acute Assessment and plan: ccontrolled with current medication. Monitor blood pressure. Qualifiers: Hypertension type: unspecified secondary hypertension Qualified Code(s): I15.9 - Secondary hypertension, unspecified; I15 - Secondary hypertension (4) Atrial fibrillation Current Visit: Yes Status: Chronic Assessment and plan: rate and rythm controlled. continue xarelto. Qualifiers: Atrial fibrillation type: paroxysmal Qualified Code(s): I48.0 - Paroxysmal atrial fibrillation (5) CVA (cerebral vascular accident) Current Visit: Yes Status: Acute Assessment and plan: no new neurological deficits. participating with PT, OT and ST, will follow progress. f/u with neuro as scheduled. Qualifiers: CVA mechanism: unspecified Qualified Code(s): I63.9 - Cerebral infarction, unspecified - Time Spent With Patient less than 15 minutes - Subjective Interval history: pariticpating well with therapy. min assist with therapy transfers. no new neurological deficits. Denies fever, chills, nausea, vomitting or diarrhea. Denies shortness of breath or chest pain. maintaining appetite and hydration. - Constitutional Vitals: Temp Pulse Resp BP Pulse Ox 97.6 F 65 16 156/88 95 09/08/18 07:03 09/08/18 07:03 09/08/18 07:03 09/08/18 07:03 09/08/18 07:03 General appearance: Present: cooperative, A&O X 3, pleasant, no acute distress, answers questions appropriately - Head Head exam: Present: atraumatic, normocephalic - Eye Eye exam: Present: PERRL, conjuntiva pink, sclera anicteric Pupils: Present: PERRL - Neck Neck exam general surgery: Present: supple, trachea midline. Absent: lymphadenopathy - Respiratory Respiratory exam: Present: CTAB. Absent: accessory muscle use, rales, rhonchi, wheezes - Cardiovascular Cardiovascular exam: Present: RRR, +S1, +S2. Absent: diastolic murmur, gallop, rubs, systolic murmur - GI/Abdominal GI/Abdominal exam: Present: normal bowel sounds, soft, no peritoneal signs. Absent: distended, tenderness - Extremities Exam Extremities exam: Present: warm, radial pulses palpable and symmetrical. Absent: calf tenderness, cyanotic, pedal edema Additional comments: right sided weakness. - Neurological Exam Neurological exam: Present: CN II-XII intact, oriented X3, no focal deficits. Absent: pronater drift, facial droop, speech deficit - Skin Skin exam: Present: dry, intact Internal Medicine: Result - Labs CBC & Chem 7: 09/07/18 17:16 09/07/18 17:16 Labs: Short CBC 09/07/18 Range/Units 17:16 WBC 7.6 (4.3-11.1) K/mcL Hgb 11.3 L (11.5-15.4) g/dL Hct 35.3 (35.3-44.9) % Plt Count 343 (140-400) K/mcL Neutrophils # 5.8 (1.6-8.9) K/mcL BMP 09/07/18 17:16 Sodium 137 Potassium 4.3 Chloride 105 Carbon Dioxide 24 BUN 31 H Creatinine 1.13 Glucose 131 H Calcium 9.4 Liver Function 09/07/18 Range/Units 17:16 Total Bilirubin 0.4 (0.3-1.0) mg/dL AST 11 L (13-39) Units/L ALT 11 (7-52) Units/L Alkaline Phosphatase 69 (34-104) Units/L Albumin 3.8 (3.5-5.7) g/dL - ABG Interpretation ABG results: PT/INR, D-dimer PT 23.4 Seconds (9.4-12.1) H D 09/02/18 05:10 Consult Discharge Plan - Plan Referrals: Tiffany Villasenor MD [Primary Care Provider] -
[2018-09-08] MEDS: *HR* Rivaroxaban 15 MG TABLET PO SCH (20:44)
[2018-09-08] MEDS ORDERED: Dextrose Gel 15 GM/37.5 ML TUBE PO PRN ×2 (22:38)
[2018-09-08] MEDS ORDERED: D5% in Water 1,000 ML IVC PRN (22:38)
[2018-09-08] MEDS ORDERED: *HR* Dextrose 50 % in Water (Syg) 50 ML SYRINGE IVP PRN (22:38)
[2018-09-09] MEDS: amLODIPine 5 MG TABLET PO SCH (08:32)
[2018-09-09] MEDS: Nitrofurantoin (BID) 100 MG CAPSULE PO SCH ×2 (08:33→16:51)
[2018-09-09] MEDS: Metoprolol XL (24 HR) Succ 25 MG TAB.ER.24H PO SCH (08:33)
[2018-09-09] MEDS: Aspirin Enteric Coated 81 MG Tablet PO SCH (08:33)
[2018-09-09] MEDS: Lisinopril 20 MG TABLET PO SCH (08:33)
[2018-09-09] MEDS: Mesalamine 250 MG CAPSULE.ER PO SCH (08:33)
[2018-09-09] MEDS: Furosemide 40 MG TABLET PO SCH (08:33)
--- NOTE | 2018-09-09 10:37 | Internal Med Progress Note ---
Date of Encounter: 09/09/18 Time of Encounter: 10:35 - Assessment and plan (1) CVA (cerebral vascular accident) Current Visit: Yes Status: Acute Assessment and plan: No acute issues. Patient's neurological exam remains unchanged since her admission, which severe right hemiparesis. Patient has patient's pain and therapy, but complaint of slight fatigue. We will continue with current plan of care and medications. Vital signs stable. Qualifiers: CVA mechanism: unspecified Qualified Code(s): I63.9 - Cerebral infarction, unspecified (2) HTN (hypertension) Current Visit: Yes Status: Chronic Assessment and plan: No acute issues. Patient's blood pressures remained stable. We will continue with goal of less than 160 systolic. We will continue with current medications Qualifiers: Hypertension type: essential hypertension Qualified Code(s): I10 - Essential (primary) hypertension (3) Diabetes Current Visit: Yes Status: Chronic Assessment and plan: No acute issues. Patient's fingerstick show most readings less than 150. We will continue with current coverage. Qualifiers: Diabetes mellitus type: type 2 Diabetes mellitus buttermaker insulin use: without long-term use Diabetes mellitus complication status: with kidney complications Diabetes mellitus complication detail: with chronic kidney disease Chronic kidney disease stage: stage 3 (moderate) Qualified Code(s): E11.22 - Type 2 diabetes mellitus with diabetic chronic kidney disease; N18.3 - Chronic kidney disease, stage 3 (moderate) (4) Ulcerative colitis Current Visit: Yes Status: Chronic Assessment and plan: No acute issues. Patient denies any loose stools or abdominal cramping. Will continue with current plan of care Qualifiers: Ulcerative colitis location: unspecified ulcerative colitis location Digestive disease complication type: unspecified complication Qualified Code(s): K51.919 - Ulcerative colitis, unspecified with unspecified complications (5) Atrial fibrillation Current Visit: Yes Status: Chronic Assessment and plan: No acute issues. Patient's heart rate remains controlled at less than 100. Continue on current medications to include Xarelto Qualifiers: Atrial fibrillation type: paroxysmal Qualified Code(s): I48.0 - Paroxysmal atrial fibrillation (6) CKD (chronic kidney disease) Current Visit: Yes Status: Chronic Assessment and plan: No acute issues. Patient's last creatinine was 1.19. We will continue with current medications and monitor patient's renal status Qualifiers: Chronic kidney disease stage: stage 3 (moderate) Qualified Code(s): N18.3 - Chronic kidney disease, stage 3 (moderate) - Time Spent With Patient less than 15 minutes - Subjective Interval history: Patient appears relaxed currently denies any discomforts or shortness of breath. Patient states that she feels she is able to move her right side slightly and feels that physical therapy is benefiting her. - Constitutional Vitals: Temp Pulse Resp BP Pulse Ox 98.6 F 68 16 159/89 95 09/09/18 07:00 09/09/18 07:00 09/09/18 07:00 09/09/18 07:00 09/09/18 07:00 General appearance: Present: cooperative, A&O X 3, pleasant, no acute distress, answers questions appropriately - Head Head exam: Present: atraumatic, normocephalic - Eye Eye exam: Present: PERRL, conjuntiva pink, sclera anicteric Pupils: Present: PERRL - Neck Neck exam general surgery: Present: supple, trachea midline. Absent: l ymphadenopathy - Respiratory Respiratory exam: Present: decreased breath sounds, CTAB. Absent: accessory muscle use, rales, rhonchi, wheezes - Cardiovascular Cardiovascular exam: Present: RRR, +S1, +S2. Absent: diastolic murmur, gallop, rubs, systolic murmur - GI/Abdominal GI/Abdominal exam: Present: normal bowel sounds, soft, no peritoneal signs. Absent: distended, tenderness - Extremities Exam Extremities exam: Present: warm, radial pulses palpable and symmetrical. Absent: calf tenderness, cyanotic, pedal edema - Neurological Exam Neurological exam: Present: CN II-XII intact, oriented X3. Absent: pronater drift, facial droop, speech deficit Additional comments: Patient with right hemiparesis with her right upper extremity showing 1/5, which is questionable movement approximately. Patient's right lower extremity shows 3/5 muscle strength as patient is able to perform a 3/5 hip flexor. Distally with dorsiflexion patient shows 1/5. Left extremities are 5/5 muscle strength. - Skin Skin exam: Present: dry, intact Internal Medicine: Result - Labs CBC & Chem 7: 09/07/18 17:16 09/07/18 17:16 - ABG Interpretation ABG results: PT/INR, D-dimer PT 23.4 Seconds (9.4-12.1) H D 09/02/18 05:10 Consult Discharge Plan - Plan Referrals: Tiffany Villasenor MD [Primary Care Provider] -
--- NOTE | 2018-09-09 13:54 | Rehab Psychology Progress Note ---
Date of Encounter: 09/09/18 Time of Encounter: 09:30 Subjective - Patient Report Patient Report: Perseverates on wanting to go home. When asked if can live and perform activities independently she stated no. - Symptoms Symptoms: Tearful. Objective - WHODAS Functional Impairment Concentration, Problem-solving, Communication: Mild Social Functioning: Mild - Comments Functional Status Comments: Stated not sleeping well thus tired. Sredirect thoughts from "going home: to coloring or crocheting.poke with [employer] [place] about hobbies to - Mental Status Mental Status Changes: OX3 - unsure cognition at abstract level. Assessment and Plan - Response to Treatment Response to Treatment: No Change - Prognosis Prognosis: Good - Treatment Plan Treatment Plan Recommendations: Continue Current Plan/Goals Treatment Frequency: weekly Next Session Date: 09/16/18 Procedures - Intervention Interventions: Cognitive/Behavioral Therapy - Modality Modality: Psychotherapy 30 minutes - Participants Therapy Participant: Patient - Session Time Session Start Time: 09:30 Session Stop Time: 10:00
[2018-09-09] MEDS: *HR* Rivaroxaban 15 MG TABLET PO SCH (20:19)
[2018-09-10] MEDS: Nitrofurantoin (BID) 100 MG CAPSULE PO SCH ×2 (08:56→16:52)
[2018-09-10] MEDS: Mesalamine 250 MG CAPSULE.ER PO SCH (08:56)
[2018-09-10] MEDS: Lisinopril 20 MG TABLET PO SCH (08:57)
[2018-09-10] MEDS: amLODIPine 5 MG TABLET PO SCH (08:58)
[2018-09-10] MEDS: Furosemide 40 MG TABLET PO SCH (08:58)
[2018-09-10] MEDS: Metoprolol XL (24 HR) Succ 25 MG TAB.ER.24H PO SCH (08:58)
[2018-09-10] MEDS: Aspirin Enteric Coated 81 MG Tablet PO SCH (08:58)
--- NOTE | 2018-09-10 11:19 | Internal Med Progress Note ---
Date of Encounter: 09/10/18 Time of Encounter: 11:17 - Assessment and plan (1) CVA (cerebral vascular accident) Current Visit: Yes Status: Acute Assessment and plan: no new neurological deficits. participating with PT, OT and ST, will follow progress. f/u with neuro as scheduled. Qualifiers: CVA mechanism: unspecified Qualified Code(s): I63.9 - Cerebral infarction, unspecified (2) UTI (urinary tract infection) Current Visit: Yes Status: Acute Assessment and plan: continue macrobid. denies urinary symptoms. Qualifiers: Urinary tract infection type: site unspecified Hematuria presence: without hematuria Qualified Code(s): N39.0 - Urinary tract infection, site not specified (3) Diabetes Current Visit: Yes Status: Chronic Assessment and plan: continue fingerstick bloods sugars. continue current medication. controlled. Qualifiers: Diabetes mellitus type: type 2 Diabetes mellitus termite control representative insulin use: without care home use Diabetes mellitus complication status: with kidney complications Diabetes mellitus complication detail: with chronic kidney disease Chronic kidney disease stage: stage 3 (moderate) Qualified Code(s): E11.22 - Type 2 diabetes mellitus with diabetic chronic kidney disease; N18.3 - Chronic kidney disease, stage 3 (moderate) (4) Hypertension Current Visit: Yes Status: Acute Assessment and plan: ccontrolled with current medication. Monitor blood pressure. Qualifiers: Hypertension type: unspecified secondary hypertension Qualified Code(s): I15.9 - Secondary hypertension, unspecified; I15 - Secondary hypertension (5) Atrial fibrillation Current Visit: Yes Status: Chronic Assessment and plan: rate and rythm controlled. continue xarelto. Qualifiers: Atrial fibrillation type: paroxysmal Qualified Code(s): I48.0 - Paroxysmal atrial fibrillation (6) Gout Current Visit: Yes Status: Chronic Assessment and plan: right middle finger. uric acid 7.7. will start colchicine and monitor. 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 min assist with therapy transfers. no new neurological deficits. Denies fever, chills, nausea, vomitting or diarrhea. Denies shortness of breath or chest pain. maintaining appetite and hydration. right middle finger swollen and slightly red. hx of gout. - Constitutional Vitals: Temp Pulse Resp BP Pulse Ox 98.7 F 69 16 126/73 95 09/10/18 08:56 09/10/18 08:56 09/10/18 08:56 09/10/18 08:56 09/10/18 08:56 General appearance: Present: cooperative, A&O X 3, pleasant, no acute distress, answers questions appropriately - Head Head exam: Present: atraumatic, normocephalic - Eye Eye exam: Present: PERRL, conjuntiva pink, sclera anicteric Pupils: Present: PERRL - Neck Neck exam general surgery: Present: supple, trachea midline. Absent: lymphadenopathy - Respiratory Respiratory exam: Present: CTAB. Absent: accessory muscle use, rales, rhonchi, wheezes - Cardiovascular Cardiovascular exam: Present: RRR, +S1, +S2. Absent: diastolic murmur, gallop, rubs, systolic murmur - GI/Abdominal GI/Abdominal exam: Present: normal bowel sounds, soft, no peritoneal signs. Absent: distended, tenderness - Extremities Exam Extremities exam: Present: warm, radial pulses palpable and symmetrical. Absent: calf tenderness, cyanotic, pedal edema Additional comments: right middle finger swollen with slight warmth and redness. right sided weakness. - Neurological Exam Neurological exam: Present: CN II-XII intact, oriented X3, no focal deficits. Absent: pronater drift, facial droop, speech deficit - Skin Skin exam: Present: dry, intact Internal Medicine: Result - Labs CBC & Chem 7: 09/07/18 17:16 09/07/18 17:16 - ABG Interpretation ABG results: PT/INR, D-dimer PT 23.4 Seconds (9.4-12.1) H D 09/02/18 05:10 Consult Discharge Plan - Plan Referrals: Tiffany Villasenor MD [Primary Care Provider] -
[2018-09-10] MEDS: Acetaminophen 325 MG TABLET PO PRN (20:39)
[2018-09-10] MEDS: *HR* Rivaroxaban 15 MG TABLET PO SCH (20:39)
[2018-09-10] MEDS: Melatonin 3 MG TABLET PO PRN (20:39)
[2018-09-11] MEDS: Nitrofurantoin (BID) 100 MG CAPSULE PO SCH ×2 (08:56→16:15)
[2018-09-11] MEDS: Metoprolol XL (24 HR) Succ 25 MG TAB.ER.24H PO SCH (08:57)
[2018-09-11] MEDS: Mesalamine 250 MG CAPSULE.ER PO SCH (08:57)
[2018-09-11] MEDS: Lisinopril 20 MG TABLET PO SCH (08:57)
[2018-09-11] MEDS: amLODIPine 5 MG TABLET PO SCH (08:57)
[2018-09-11] MEDS: Aspirin Enteric Coated 81 MG Tablet PO SCH (08:57)
[2018-09-11] MEDS: Furosemide 40 MG TABLET PO SCH (08:58)
--- NOTE | 2018-09-11 10:01 | Internal Med Progress Note ---
Date of Encounter: 09/11/18 Time of Encounter: 09:59 - Assessment and plan (1) CVA (cerebral vascular accident) Current Visit: Yes Status: Acute Assessment and plan: No acute issues. Patient's neurological exam remains unchanged since her admission, which severe right hemiparesis. Patient does seem to have a slight imcrease in strenght to the RLE. Patient has patient's pain and therapy, but complaint of slight fatigue. We will continue with current plan of care and medications. Vital signs stable. Qualifiers: CVA mechanism: unspecified Qualified Code(s): I63.9 - Cerebral infarction, unspecified (2) HTN (hypertension) Current Visit: Yes Status: Chronic Assessment and plan: No acute issues. Patient's blood pressures remained stable. We will continue with goal of less than 160 systolic. We will continue with current medications Qualifiers: Hypertension type: essential hypertension Qualified Code(s): I10 - Essential (primary) hypertension (3) Diabetes Current Visit: Yes Status: Chronic Assessment and plan: No acute issues. Patient's fingerstick show most readings less than 150. We will continue with current coverage. Qualifiers: Diabetes mellitus type: type 2 Diabetes mellitus long-term insulin use: without extermination inspector use Diabetes mellitus complication status: with kidney complications Diabetes mellitus complication detail: with chronic kidney disease Chronic kidney disease stage: stage 3 (moderate) Qualified Code(s): E11.22 - Type 2 diabetes mellitus with diabetic chronic kidney disease; N18.3 - Chronic kidney disease, stage 3 (moderate) (4) Ulcerative colitis Current Visit: Yes Status: Chronic Assessment and plan: No acute issues. Patient denies any loose stools or abdominal cramping. Will continue with current plan of care Qualifiers: Ulcerative colitis location: unspecified ulcerative colitis location Digestive disease complication type: unspecified complication Qualified Code(s): K51.919 - Ulcerative colitis, unspecified with unspecified complications (5) Atrial fibrillation Current Visit: Yes Status: Chronic Assessment and plan: No acute issues. Patient's heart rate remains controlled at less than 100. Continue on current medications to include Xarelto Qualifiers: Atrial fibrillation type: paroxysmal Qualified Code(s): I48.0 - Paroxysmal atrial fibrillation - Time Spent With Patient less than 15 minutes - Subjective Interval history: Patient appears relaxed currently denies any discomforts or shortness of breath. Patient states that she feels she is able to move her right side slightly and feels that physical therapy is benefiting her. - Constitutional Vitals: Temp Pulse Resp BP Pulse Ox 97.8 F 84 16 136/76 96 09/11/18 07:00 09/11/18 07:00 09/11/18 07:00 09/11/18 07:00 09/11/18 07:00 General appearance: Present: cooperative, A&O X 3, pleasant, no acute distress, answers questions appropriately - Head Head exam: Present: atraumatic, normocephalic - Eye Eye exam: Present: PERRL, conjuntiva pink, sclera anicteric Pupils: Present: PERRL - Neck Neck exam general surgery: Present: supple, trachea midline. Absent: lymphadenopathy - Respiratory Respiratory exam: Present: decreased breath sounds, CTAB. Absent: accessory muscle use, rales, rhonchi, wheezes - Cardiovascular Cardiovascular exam: Present: RRR, +S1, +S2. Absent: diastolic murmur, gallop, rubs, systolic murmur - GI/Abdominal GI/Abdominal exam: Present: normal bowel sounds, soft, no peritoneal signs. Absent: distended, tenderness - Extremities Exam Extremities exam: Present: warm, radial pulses palpable and symmetrical. Absent : calf tenderness, cyanotic, pedal edema - Neurological Exam Neurological exam: Present: CN II-XII intact, oriented X3. Absent: pronater drift, facial droop, speech deficit Additional comments: Patient continues with right hemiparesis with right extremity showing 1/5 muscle strength for RUE and 3/5 HF for RLE. Left extremities is 5/5 muscle strength. - Skin Skin exam: Present: dry, intact Internal Medicine: Result - Labs CBC & Chem 7: 09/07/18 17:16 09/07/18 17:16 - ABG Interpretation ABG results: PT/INR, D-dimer PT 23.4 Seconds (9.4-12.1) H D 09/02/18 05:10 Consult Discharge Plan - Plan Referrals: Tiffany Villasenor MD [Primary Care Provider] -
[2018-09-11] MEDS: Acetaminophen 325 MG TABLET PO PRN (20:08)
[2018-09-11] MEDS: Melatonin 3 MG TABLET PO PRN (20:08)
[2018-09-11] MEDS: *HR* Rivaroxaban 15 MG TABLET PO SCH (20:08)
[2018-09-12] MEDS: Metoprolol XL (24 HR) Succ 25 MG TAB.ER.24H PO SCH (10:18)
[2018-09-12] MEDS: Lisinopril 20 MG TABLET PO SCH (10:19)
[2018-09-12] MEDS: Mesalamine 250 MG CAPSULE.ER PO SCH (10:20)
[2018-09-12] MEDS: Aspirin Enteric Coated 81 MG Tablet PO SCH (10:21)
[2018-09-12] MEDS: Furosemide 40 MG TABLET PO SCH (10:21)
[2018-09-12] MEDS: Nitrofurantoin (BID) 100 MG CAPSULE PO SCH (10:21)
[2018-09-12] MEDS: amLODIPine 5 MG TABLET PO SCH (10:21)
--- NOTE | 2018-09-12 11:05 | Internal Med Progress Note ---
Date of Encounter: 09/12/18 Time of Encounter: 11:03 - Assessment and plan (1) CVA (cerebral vascular accident) Current Visit: Yes Status: Acute Assessment and plan: Patient continues to improve as noted. She is participating well in therapies. Qualifiers: CVA mechanism: unspecified Qualified Code(s): I63.9 - Cerebral infarction, unspecified (2) HTN (hypertension) Current Visit: Yes Status: Chronic Assessment and plan: Stable on current regimen. Qualifiers: Hypertension type: essential hypertension Qualified Code(s): I10 - Essential (primary) hypertension (3) Diabetes Current Visit: Yes Status: Chronic Assessment and plan: Control and will continue sliding scale. Qualifiers: Diabetes mellitus type: type 2 Diabetes mellitus intermediate insulin use: without termite treater use Diabetes mellitus complication status: with kidney complications Diabetes mellitus complication detail: with chronic kidney disease Chronic kidney disease stage: stage 3 (moderate) Qualified Code(s): E11.22 - Type 2 diabetes mellitus with diabetic chronic kidney disease; N18.3 - Chronic kidney disease, stage 3 (moderate) (4) GERD (gastroesophageal reflux disease) Current Visit: No Status: Chronic Assessment and plan: Symptomatically controlled. Qualifiers: Esophagitis presence: without esophagitis Qualified Code(s): K21.9 - Gastro-esophageal reflux disease without esophagitis (5) Ulcerative colitis Current Visit: Yes Status: Chronic Assessment and plan: Controlled without current signs or symptoms or findings. Qualifiers: Ulcerative colitis location: unspecified ulcerative colitis location Digestive disease complication type: unspecified complication Qualified Code(s): K51.919 - Ulcerative colitis, unspecified with unspecified co mplications (6) Gout Current Visit: Yes Status: Chronic Assessment and plan: Mild hyperuricemia and does not seem to have acute gout. Will follow. 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 She is participating in therapies and has minimal finger pain. She is gaining strength, slowly, and her right upper extremity. She wants to know when she can go home. She had an episode of choking, apparently on the pill, this morning. Sips of water relieve this and she has had no prior problems or problems since. I discussed this with her and with nursing and this will be followed. Patient has no complaint of chest discomfort, dyspnea, orthopnea, palpitations, nausea or vomiting, constipation or diarrhea, other changes in bowel habits, difficulty with urination, rash or itching, or other new complaints, except as mentioned above. Review of systems is otherwise negative. I discussed management of patient's care with nursing staff. - Constitutional Vitals: Temp Pulse Resp BP Pulse Ox 98.2 F 66 18 147/84 96 09/12/18 07:00 09/12/18 07:00 09/12/18 07:00 09/12/18 07:00 09/12/18 07:00 Exam: Examination: (Except as mentioned above): General: In no apparent distress. Alert and oriented 3. Nondiaphoretic. Head: Atraumatic and normocephalic. Respiratory: No use of accessory muscles. Lungs are clear throughout. Normal airflow. Cardiovascular: Regular rate and rhythm without murmur appreciated. Abdomen: Bowel sounds are normal. No hepatosplenomegaly mass or tenderness appreciated. Obese and therefore difficult to palpate deeply.Patient is exami mayda upright in chair and this also limits exam. Extremities: No cyanosis clubbing or edema. She still has mild edema of her right hand but this is improved. Skin: Warm and non-diaphoretic with no new lesions noted. Internal Medicine: Result - Labs CBC & Chem 7: 09/07/18 17:16 09/07/18 17:16 - ABG Interpretation ABG results: PT/INR, D-dimer PT 23.4 Seconds (9.4-12.1) H D 09/02/18 05:10 Consult Discharge Plan - Plan Referrals: Tiffany Villasenor MD [Primary Care Provider] -
[2018-09-12] MEDS: *HR* Rivaroxaban 15 MG TABLET PO SCH (20:27)
[2018-09-13 04:52] LABS: Hematocrit 32.1 % (35.3-44.9); Hemoglobin 10.2 g/dL (11.5-15.4); Mean Corpuscular HGB Conc 31.8 g/dL (31.6-35.5); Mean Corpuscular Hemoglobin 29.5 pg (28.0-33.3); Mean Corpuscular Volume 92.8 fL (83.0-100.0); Platelet Count 254 K/mcL (140-400); Red Blood Count 3.46 M/mcL (3.82-4.97); Red Cell Distribution Width 14.1 % (11.5-14.5); White Blood Count 7.5 K/mcL (4.3-11.1)
[2018-09-13 05:12] LABS: Alanine Aminotransferase 9 Units/L (7-52); Albumin 3.5 g/dL (3.5-5.7); Albumin/Globulin Ratio 1.3 (1.1-2.2); Alkaline Phosphatase 64 Units/L (34-104); Aspartate Amino Transferase 11 Units/L (13-39); BUN/Creatinine Ratio 21 (6-26); Bilirubin,Total 0.4 mg/dL (0.3-1.0); Blood Urea Nitrogen 21 mg/dL (8-23); Carbon Dioxide 25 mEq/L (23-29); Chloride 105 mEq/L (98-107); Globulin 2.8 g/dL (2.4-3.5); Glucose 127 mg/dL (70-105); Osmolality,Calculated 291 (280-300); Sodium 138 mEq/L (136-145); Total Protein 6.3 g/dL (6.4-8.9); eGFR For African Americans > 60 (> 60); eGFR For Non-African Americans 54 (> 60)
[2018-09-13] MEDS: Furosemide 40 MG TABLET PO SCH (09:17)
[2018-09-13] MEDS: Aspirin Enteric Coated 81 MG Tablet PO SCH (09:17)
[2018-09-13] MEDS: Mesalamine 250 MG CAPSULE.ER PO SCH (09:17)
[2018-09-13] MEDS: Metoprolol XL (24 HR) Succ 25 MG TAB.ER.24H PO SCH (09:17)
[2018-09-13] MEDS: Lisinopril 20 MG TABLET PO SCH (09:17)
[2018-09-13] MEDS: amLODIPine 5 MG TABLET PO SCH (09:17)
--- NOTE | 2018-09-13 16:05 | Internal Med Progress Note ---
Date of Encounter: 09/13/18 Time of Encounter: 14:30 - Assessment and plan (1) CVA (cerebral vascular accident) Current Visit: Yes Status: Acute Assessment and plan: Patient continues to improve as noted. She is participating well in therapies. Qualifiers: CVA mechanism: unspecified Qualified Code(s): I63.9 - Cerebral infarction, unspecified (2) HTN (hypertension) Current Visit: Yes Status: Chronic Assessment and plan: Marginal control. Will follow. Qualifiers: Hypertension type: essential hypertension Qualified Code(s): I10 - Essential (primary) hypertension (3) Diabetes Current Visit: Yes Status: Chronic Assessment and plan: Adequate control will continue current regimen and sliding scale and follow. Qualifiers: Diabetes mellitus type: type 2 Diabetes mellitus merchandise stocker insulin use: without merchandise stocker use Diabetes mellitus complication status: with kidney complications Diabetes mellitus complication detail: with chronic kidney disease Chronic kidney disease stage: stage 3 (moderate) Qualified Code(s): E11.22 - Type 2 diabetes mellitus with diabetic chronic kidney disease; N18.3 - Chronic kidney disease, stage 3 (moderate) (4) GERD (gastroesophageal reflux disease) Current Visit: No Status: Chronic Assessment and plan: No recent signs or symptoms. Qualifiers: Esophagitis presence: without esophagitis Qualified Code(s): K21.9 - Gastro-esophageal reflux disease without esophagitis (5) Ulcerative colitis Current Visit: Yes Status: Chronic Assessment and plan: Clinically stable and controlled. Qualifiers: Ulcerative colitis location: unspecified ulcerative colitis location Digestive disease complication type: unspecified complication Qualified Code(s): K51.919 - Ulcerative colitis, unspecified with unspecified complications (6) Gout Current Visit: Yes Status: Chronic Assessment and plan: Does not seem to be acute gout. Suspect that finger symptoms are related to disuse and edema. Will follow. 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 She is enjoying a restful afternoon. She is pleased with progress but wishes it was faster. Bowels are moving and she has no bowel or bladder dysfunction. She is gaining some more movement in her right upper extremity and she is pleased with this. Patient has no complaint of chest discomfort, dyspnea, orthopnea, palpitations, nausea or vomiting, constipation or diarrhea, other changes in bowel habits, di fficulty with urination, rash or itching, or other new complaints, except as mentioned above. Review of systems is otherwise negative. I discussed management of patient's care with nursing staff. - Constitutional Vitals: Temp Pulse Resp BP Pulse Ox 98.0 F 68 16 158/84 95 09/13/18 07:27 09/13/18 07:27 09/13/18 07:27 09/13/18 07:27 09/13/18 07:27 Exam: General: In no apparent distress. Alert and oriented 3. Nondiaphoretic. Head: Atraumatic and normocephalic. Respiratory: No use of accessory muscles. Lungs are clear throughout. Normal airflow. Cardiovascular: Irregularly irregular consistent with atrial fibrillation, rate controlled, without murmur appreciated. Abdomen: Bowel sounds are normal. No hepatosplenomegaly mass or tenderness appreciated. Morbidly obese and therefore difficult to palpate deeply. Extremities: No cyanosis clubbing or edema. Skin: Warm and non-diaphoretic with no new lesions noted. Neurologic: Slightly improved grasp and right upper extremity motion, as noted. Internal Medicine: Result - Labs CBC & Chem 7: 09/13/18 04:43 09/13/18 04:43 Labs: Short CBC 09/13/18 Range/Units 04:43 WBC 7.5 (4.3-11.1) K/mcL Hgb 10.2 L (11.5-15.4) g/dL Hct 32.1 L (35.3-44.9) % Plt Count 254 (140-400) K/mcL BMP 09/13/18 04:43 Sodium 138 Potassium 4.0 Chloride 105 Carbon Dioxide 25 BUN 21 Creatinine 0.99 Glucose 127 H Calcium 9.0 Liver Function 09/13/18 Range/Units 04:43 Total Bilirubin 0.4 (0.3-1.0) mg/dL AST 11 L (13-39) Units/L ALT 9 (7-52) Units/L Alkaline Phosphatase 64 (34-104) Units/L Albumin 3.5 (3.5-5.7) g/dL - ABG Interpretation ABG results: PT/INR, D-dimer PT 23.4 Seconds (9.4-12.1) H D 09/02/18 05:10 Consult Discharge Plan - Plan Referrals: Tiffany Villasenor MD [Primary Care Provider] -
[2018-09-13] MEDS: *HR* Rivaroxaban 15 MG TABLET PO SCH (19:37)
[2018-09-13] MEDS: Melatonin 3 MG TABLET PO PRN (19:38)
[2018-09-14 06:06] LABS: Basophils % 0.6 %; Eosinophils # 0.1 K/mcL (0.0-0.6); Hematocrit 31.8 % (35.3-44.9); Immature Granulocytes % 0.6 % (0-4); Lymphocytes # 0.7 K/mcL (0.6-4.6); Lymphocytes % 10.4 %; Mean Corpuscular HGB Conc 31.4 g/dL (31.6-35.5); Mean Corpuscular Hemoglobin 29.6 pg (28.0-33.3); Mean Corpuscular Volume 94.1 fL (83.0-100.0); Mean Platelet Volume 9.3 fL (9.4-12.4); Monocytes # 0.6 K/mcL (0.0-1.3); Monocytes % 8.8 %; Platelet Count 252 K/mcL (140-400); Red Blood Count 3.38 M/mcL (3.82-4.97); Red Cell Distribution Width 14.2 % (11.5-14.5); Segmented Neutrophils % 77.6 %; White Blood Count 6.5 K/mcL (4.3-11.1)
[2018-09-14 06:21] LABS: Calcium 8.9 mg/dL (8.6-10.3); Potassium 4.5 mEq/L (3.5-5.1)
[2018-09-14] MEDS: Mesalamine 250 MG CAPSULE.ER PO SCH (08:16)
[2018-09-14] MEDS: Furosemide 40 MG TABLET PO SCH (08:16)
[2018-09-14] MEDS: Aspirin Enteric Coated 81 MG Tablet PO SCH (08:16)
[2018-09-14] MEDS: amLODIPine 5 MG TABLET PO SCH (08:16)
[2018-09-14] MEDS: Metoprolol XL (24 HR) Succ 25 MG TAB.ER.24H PO SCH (08:17)
[2018-09-14] MEDS: Lisinopril 20 MG TABLET PO SCH (08:17)
--- NOTE | 2018-09-14 10:15 | Internal Med Progress Note ---
Date of Encounter: 09/14/18 Time of Encounter: 10:13 - Assessment and plan (1) CVA (cerebral vascular accident) Current Visit: Yes Status: Acute Assessment and plan: Continued slow progress, participating well in therapies. Qualifiers: CVA mechanism: unspecified Qualified Code(s): I63.9 - Cerebral infarction, unspecified (2) HTN (hypertension) Current Visit: Yes Status: Chronic Assessment and plan: Marginal control. Qualifiers: Hypertension type: essential hypertension Qualified Code(s): I10 - Essential (primary) hypertension (3) Diabetes Current Visit: Yes Status: Chronic Assessment and plan: Controlled on current regimen. Qualifiers: Diabetes mellitus type: type 2 Diabetes mellitus senior living insulin use: without vermin exterminator use Diabetes mellitus complication status: with kidney complications Diabetes mellitus complication detail: with chronic kidney disease Chronic kidney disease stage: stage 3 (moderate) Qualified Code(s): E11.22 - Type 2 diabetes mellitus with diabetic chronic kidney disease; N18.3 - Chronic kidney disease, stage 3 (moderate) (4) GERD (gastroesophageal reflux disease) Current Visit: No Status: Chronic Assessment and plan: No current symptoms Qualifiers: Esophagitis presence: without esophagitis Qualified Code(s): K21.9 - Gastro-esophageal reflux disease without esophagitis (5) Ulcerative colitis Current Visit: Yes Status: Chronic Assessment and plan: Stable. Qualifiers: Ulcerative colitis location: unspecified ulcerative colitis location Digestive disease complication type: unspecified complication Qualified Code(s): K51.919 - Ulcerative colitis, unspecified with unspecified c omplications (6) Gout Current Visit: Yes Status: Chronic Assessment and plan: In a couple of days, we will begin low-dose allopurinol and follow. 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 She wants to go home. She plans a dinner meeting and card playing, here, tonight. She states that bowels and bladder are functioning well. She is still slowly gaining more strength in her right extremities. Finger symptoms continue to improve. Patient has no complaint of chest discomfort, dyspnea, orthopnea, palpitations, nausea or vomiting, constipation or diarrhea, other changes in bowel habits, difficulty with urination, rash or itching, or other new complaints, except as mentioned above. Review of systems is otherwise negative. I discussed management of patient's care with nursing staff. - Constitutional Vitals: Temp Pulse Resp BP Pulse Ox 98.1 F 64 16 145/80 96 09/14/18 07:01 09/14/18 07:01 09/14/18 07:01 09/14/18 07:01 09/14/18 07:01 Exam: Examination: (Except as mentioned above): General: In no apparent distress. Alert and oriented 3. Nondiaphoretic. Head: Atraumatic and normocephalic. Respiratory: No use of accessory muscles. Lungs are clear throughout. Normal airflow. Cardiovascular: Regular rate and rhythm without murmur appreciated. Abdomen: Bowel sounds are normal. No hepatosplenomegaly mass or tenderness appreciated. Obese and therefore difficult to palpate deeply. Patient is examined upright in chair and this also limits exam. Extremities: No cyanosis clubbing or edema. Skin: Warm and non-diaphoretic with no new lesions noted. Internal Medicine: Result - Labs CBC & Chem 7: 09/14/18 05:55 09/14/18 05:55 Labs: Short CBC 09/14/18 Range/Units 05:55 WBC 6.5 (4.3-11.1) K/mcL Hgb 10.0 L (11.5-15.4) g/dL Hct 31.8 L (35.3-44.9) % Plt Count 252 (140-400) K/mcL Neutrophils # 5.0 (1.6-8.9) K/mcL BMP 09/14/18 05:55 Sodium 138 Potassium 4.5 Chloride 102 Carbon Dioxide 29 BUN 20 Creatinine 1.12 Glucose 128 H Calcium 8.9 - ABG Interpretation ABG results: PT/INR, D-dimer PT 23.4 Seconds (9.4-12.1) H D 09/02/18 05:10 Consult Discharge Plan - Plan Referrals: Tiffany Villasenor MD [Primary Care Provider] -
--- NOTE | 2018-09-14 12:53 | Physcial Medicine-Consult Note ---
Date of Encounter: 09/14/18 Time of Encounter: 12:49 Physical Medicine - AP (1) CVA (cerebral vascular accident) Status: Acute Assessment and plan: Continue PT and OT. Will follow progress. Slowly making progress. Goal to return to home. Ambulated 25 feet. With therapy. Code(s): I63.9 - Cerebral infarction, unspecified SNOMED Code(s): 993732981 (2) UTI (urinary tract infection) Status: Acute Code(s): N39.0 - Urinary tract infection, site not specified SNOMED Code(s): 14335333 (3) Diabetes Status: Chronic Code(s): E11.9 - Type 2 diabetes mellitus without complications SNOMED Code(s): 03103180 (4) Hypertension Status: Acute Assessment and plan: Controlled with current medication. Monitor blood pressure. Code(s): I10 - Essential (primary) hypertension SNOMED Code(s): 92788794 (5) Atrial fibrillation Status: Chronic Assessment and plan: Rate and rhythm stable. Continue xarelto. Code(s): I48.91 - Unspecified atrial fibrillation SNOMED Code(s): 34244478 (6) Gout Status: Chronic Code(s): M10.9 - Gout, unspecified SNOMED Code(s): 35715718 Physical Medicine - HPI - Data of Consult Patient: new to practice Consult date: 09/14/18 Requesting Physician: Alvin Delatorre MD Primary Care Provider: Tiffany Villasenor - Consult Narrative Reason for consult: CVA History of present illness: Ms. Edwards is a 83 year old female admitted to rehab unit with a left MCA stroke. She had sudden onset or speech changes, facial droop, right dense hemiparesis and was transported to hospital. Continues to have right-sided weakness. ambulating 25' with therapy. right arm strength progressing. No issues with speech or swallowing. Has been participating well with therapy. Fatigues easily. Started melatonin last night. States she is not sleeping well but slept better melatonin. Bowels are moving as normal. lives at home with daughter. Denies fever, chills, nausea vomiting or diarrhea. Denies any new neurological symptoms. Denies shortness of breath or chest pain. Has been on Coumadin therapy for several years. Has history of hypertension, states it has been difficult to control. Also has history of diabetes. CC: Alvin Delatorre MD Past Med Surg Social Fam HX - Past Medical History Medical history: atrial fibrillation, CHF, diabetes, GERD, hypertension, other Additional medical history: UC Psychiatric history: anxiety - Past Surgical History Surgical History: appendectomy, hysterectomy, CHEVY/BSO Additional surgical history: left toe removed, Tonsils removed - Social History Smoking Status: Never smoker Smokeless Tobacco Status: No Alcohol use: none Drug use: none - Family History Mother Living Status: Hx Family Cardiac Disorders: Yes Hx Family Respiratory Disorders: No Hx Family Cancer: No Hx Family GI Disorders: No Hx Family Endocrine Disorder: Yes Hx Family Neuromuscular Disorders: No Hx Family Neurologic Disorders: No Hx Family HEENT Disorders: No Hx Family Autoimmune Disorders: No Father Living Status: Hx Family Cardiac Disorders: Yes Hx Family Respiratory Disorders: No Hx Family Cancer: No Hx Family GI Disorders: No Hx Family Endocrine Disorder: No Hx Family Neuromuscular Disorders: No Hx Family Neurologic Disorders: No Hx Family HEENT Disorders: No Hx Family Autoimmune Disorders: No Medications and Allergies Acetaminophen [Tylenol] 1,000 mg PO 1-2XD PRN 03/10/15 [History] Furosemide [Lasix] 40 mg PO QAM 03/10/15 [History] Mesalamine [Apriso] 0.75 gm PO QAM 03/10/15 [History] Omeprazole [PriLOSEC] 20 mg PO QAM 03/10/15 [History] Potassium Chloride [K-Tab ER] 20 meq PO DAILY 11/28/15 [History] Metoprolol Succinate 25 mg PO QAM 01/24/17 [History] Aspirin Enteric Coated [Aspirin EC] 81 mg PO QAM 08/28/18 [History] Lisinopril [Zestril] 40 mg PO QAM 08/28/18 [History] Rivaroxaban [Xarelto] 20 mg PO 1700 08/28/18 [History] Atorvastatin [Lipitor] 80 mg PO HS 30 Days #30 tablet 09/01/18 [Rx] Paroxetine [Paxil] 10 mg PO DAILY #30 tablet 09/01/18 [Rx] amLODIPine [Norvasc] 5 mg PO DAILY #30 tablet 09/01/18 [Rx] Allergy/AdvReac Type Severity Reaction Status Date / Time ampicillin Allergy Hives Verified 08/28/18 10:05 morphine AdvReac Hallucinati Verified 08/28/18 10:05 ng Review of systems: Normal unless otherwise stated in HPI. Physical Medicine - Exam - Constitutional Vitals: Temp Pulse Resp BP Pulse Ox 98.1 F 64 16 145/80 96 09/14/18 07:01 09/14/18 07:01 09/14/18 07:01 09/14/18 07:01 09/14/18 07:01 General appearance: no acute distress - Head Head exam: Present: normal inspection, normocephalic - Eye Eye exam: Present: EOMI, normal appearance, PERRL - ENT ENT exam: Present: mucous membranes moist - Neck Neck exam: Present: full ROM - Respiratory Respiratory exam: Present: CTAB - Cardiovascular Cardiovascular exam: Present: RRR - GI/Abdominal GI/Abdominal exam: Present: normal bowel sounds, soft - Extremities Exam Additional comments: Right arm strength 3\5. - Neurological Exam Neurological exam: Present: alert, oriented X3 - Psychiatric Psychiatric exam: Present: normal affect, normal mood - Skin Skin exam: Present: normal color, warm Physical Medicine - Results - Labs CBC & Chem 7: 09/14/18 05:55 09/14/18 05:55 Labs: Short CBC 09/14/18 Range/Units 05:55 WBC 6.5 (4.3-11.1) K/mcL Hgb 10.0 L (11.5-15.4) g/dL Hct 31.8 L (35.3-44.9) % Plt Count 252 (140-400) K/mcL Neutrophils # 5.0 (1.6-8.9) K/mcL BMP 09/14/18 05:55 Sodium 138 Potassium 4.5 Chloride 102 Carbon Dioxide 29 BUN 20 Creatinine 1.12 Glucose 128 H Calcium 8.9 Consult Discharge Plan - Plan Referrals: Tiffany Villasenor MD [Primary Care Provider] -
[2018-09-14] MEDS: Melatonin 3 MG TABLET PO PRN (19:41)
[2018-09-14] MEDS: *HR* Rivaroxaban 15 MG TABLET PO SCH (19:41)
[2018-09-15] MEDS: Aspirin Enteric Coated 81 MG Tablet PO SCH (07:17)
[2018-09-15] MEDS: Lisinopril 20 MG TABLET PO SCH (07:17)
[2018-09-15] MEDS: Mesalamine 250 MG CAPSULE.ER PO SCH (07:17)
[2018-09-15] MEDS: Furosemide 40 MG TABLET PO SCH (07:17)
[2018-09-15] MEDS: amLODIPine 5 MG TABLET PO SCH (07:17)
[2018-09-15] MEDS: Metoprolol XL (24 HR) Succ 25 MG TAB.ER.24H PO SCH (07:17)
--- NOTE | 2018-09-15 11:00 | Internal Med Progress Note ---
Date of Encounter: 09/15/18 Time of Encounter: 10:58 - Assessment and plan (1) CVA (cerebral vascular accident) Current Visit: Yes Status: Acute Assessment and plan: no new neurological deficits. participating with PT, OT and ST, will follow progress. f/u with neuro as scheduled. Qualifiers: CVA mechanism: unspecified Qualified Code(s): I63.9 - Cerebral infarction, unspecified (2) Diabetes Current Visit: Yes Status: Chronic Assessment and plan: continue fingerstick bloods sugars. continue current medication. controlled. Qualifiers: Diabetes mellitus type: type 2 Diabetes mellitus senior living insulin use: without termite control servicer use Diabetes mellitus complication status: with kidney compl ications Diabetes mellitus complication detail: with chronic kidney disease Chronic kidney disease stage: stage 3 (moderate) Qualified Code(s): E11.22 - Type 2 diabetes mellitus with diabetic chronic kidney disease; N18.3 - Chronic kidney disease, stage 3 (moderate) (3) Hypertension Current Visit: Yes Status: Acute Assessment and plan: ccontrolled with current medication. Monitor blood pressure. Qualifiers: Hypertension type: unspecified secondary hypertension Qualified Code(s): I15.9 - Secondary hypertension, unspecified; I15 - Secondary hypertension (4) Atrial fibrillation Current Visit: Yes Status: Chronic Assessment and plan: rate and rythm controlled. continue xarelto. Qualifiers: Atrial fibrillation type: paroxysmal Qualified Code(s): I48.0 - Paroxysmal atrial fibrillation - Time Spent With Patient less than 15 minutes - Subjective Interval history: had toenails cut at civil litigation attorney this am. participating well with therapy. min assist with therapy transfers. no new neurological deficits. Denies fever, chills, nausea, vomitting or diarrhea. Denies shortness of breath or chest pain. maintaining appetite and hydration. continues to ask when she can go home. discussed functional barriers to discharge. she is continuing to work on these and make progress with therapy. - Constitutional Vitals: Temp Pulse Resp BP Pulse Ox 98.8 F 74 16 140/77 94 09/15/18 06:57 09/15/18 06:57 09/15/18 06:57 09/15/18 06:57 09/15/18 06:57 General appearance: Present: cooperative, A&O X 3, pleasant, no acute distress, answers questions appropriately - Head Head exam: Present: atraumatic, normocephalic - Eye Eye exam: Present: PERRL, conjuntiva pink, sclera anicteric Pupils: Present: PERRL - Neck Neck exam general surgery: Present: supple, trachea midline. Absent: lymphadenopathy - Respiratory Respiratory exam: Present: CTAB. Absent: accessory muscle use, rales, rhonchi, wheezes - Cardiovascular Cardiovascular exam: Present: irregular rhythm, +S1, +S2. Absent: diastolic murmur, gallop, rubs, systolic murmur - GI/Abdominal GI/Abdominal exam: Present: normal bowel sounds, soft, no peritoneal signs. Absent: distended, tenderness - Extremities Exam Extremities exam: Present: warm, radial pulses palpable and symmetrical. Absent: calf tenderness, cyanotic, pedal edema - Neurological Exam Neurological exam: Present: CN II-XII intact, oriented X3, no focal deficits. Absent: pronater drift, facial droop, speech deficit - Skin Skin exam: Present: dry, intact Internal Medicine: Result - Labs CBC & Chem 7: 09/14/18 05:55 09/14/18 05:55 - ABG Interpretation ABG results: PT/INR, D-dimer PT 23.4 Seconds (9.4-12.1) H D 09/02/18 05:10 Consult Discharge Plan - Plan Referrals: Tiffany Villasenor MD [Primary Care Provider] -
[2018-09-15] MEDS: Melatonin 3 MG TABLET PO PRN (20:57)
[2018-09-15] MEDS: *HR* Rivaroxaban 15 MG TABLET PO SCH (20:57)
[2018-09-15] MEDS: Acetaminophen 325 MG TABLET PO PRN (20:57)
[2018-09-16] MEDS: Lisinopril 20 MG TABLET PO SCH (08:10)
[2018-09-16] MEDS: amLODIPine 5 MG TABLET PO SCH (08:10)
[2018-09-16] MEDS: Metoprolol XL (24 HR) Succ 25 MG TAB.ER.24H PO SCH (08:10)
[2018-09-16] MEDS: Furosemide 40 MG TABLET PO SCH (08:10)
[2018-09-16] MEDS: Aspirin Enteric Coated 81 MG Tablet PO SCH (08:10)
[2018-09-16] MEDS: Mesalamine 250 MG CAPSULE.ER PO SCH (08:10)
[2018-09-16] MEDS: Acetaminophen 325 MG TABLET PO PRN (08:23)
--- NOTE | 2018-09-16 10:08 | Internal Med Progress Note ---
Date of Encounter: 09/16/18 Time of Encounter: 10:05 - Assessment and plan (1) CVA (cerebral vascular accident) Current Visit: Yes Status: Acute Assessment and plan: No acute issues. Patient's neurological exam remains unchanged since her admission, which severe right hemiparesis. Patient does seem to have a slight increased in strength to the RLE, which is now at 3/5. But continues to have issue with fine motor on right. Patient has patient's pain and therapy, but complaint of slight fatigue. We will continue with current plan of care and medications. Vital signs stable. Qualifiers: CVA mechanism: unspecified Qualified Code(s): I63.9 - Cerebral infarction, unspecified (2) HTN (hypertension) Current Visit: Yes Status: Chronic Assessment and plan: No acute issues. Patient's blood pressures remained stable. We will continue with goal of less than 160 systolic. We will continue with current medications Qualifiers: Hypertension type: essential hypertension Qualified Code(s): I10 - Essential (primary) hypertension (3) Diabetes Current Visit: Yes Status: Chronic Assessment and plan: No acute issues. Patient's fingerstick show most readings less than 150. We will continue with current coverage. Qualifiers: Diabetes mellitus type: type 2 Diabetes mellitus terminal operations manager insulin use: without intermediate use Diabetes mellitus complication status: with kidney complications Diabetes mellitus complication detail: with chronic kidney disease Chronic kidney disease stage: stage 3 (moderate) Qualified Code(s): E11.22 - Type 2 diabetes mellitus with diabetic chronic kidney disease; N18.3 - Chronic kidney disease, stage 3 (moderate) (4) Ulcerative colitis Current Visit: Yes Status: Chronic Assessment and plan: No acute issues. Patient denies any loose stools or abdominal cramping. Will continue with current plan of care Qualifiers: Ulcerative colitis location: unspecified ulcerative colitis location Digestive disease complication type: unspecified complication Qualified Code(s): K51.919 - Ulcerative colitis, unspecified with unspecified complications (5) Atrial fibrillation Current Visit: Yes Status: Chronic Assessment and plan: No acute issues. Patient's heart rate remains controlled at less than 100. Continue on current medications to include Xarelto. Denies any palpitations or CP Qualifiers: Atrial fibrillation type: paroxysmal Qualified Code(s): I48.0 - Paroxysmal atrial fibrillation - Time Spent With Patient less than 15 minutes - Subjective Interval history: Patient appears relaxed currently denies any discomforts or shortness of breath. Patient states that she feels she is able to move her right side slightly and feels that physical therapy is benefiting her. Patient has been asking to go home, but has been reinforced that she has more therapy that she need. - Constitutional Vitals: Temp Pulse Resp BP Pulse Ox 98.1 F 61 16 129/79 95 09/16/18 07:00 09/16/18 07:00 09/16/18 07:00 09/16/18 07:00 09/16/18 07:00 General appearance: Present: cooperative, A&O X 3, pleasant, no acute distress, answers questions appropriately - Head Head exam: Present: atraumatic, normocephalic - Eye Eye exam: Present: PERRL, conjuntiva pink, sclera anicteric Pupils: Present: PERRL - Neck Neck exam general surgery: Present: supple, trachea midline. Absent: lymphadenopathy - Respiratory Respiratory exam: Present: decreased breath sounds, CTAB. Absent: accessory muscle use, rales, rhonchi, wheezes - Cardiovascular Cardiovascular exam: Present: RRR, +S1, +S2. Absent: diastolic murmur, gallop, rubs, systolic murmur - GI/Abdominal GI/Abdominal exam: Present: normal bowel sounds, soft, no peritoneal signs. Absent: distended, tenderness - Extremities Exam Extremities exam: Present: warm, radial pulses palpable and symmetrical. Absent: calf tenderness, cyanotic, pedal edema - Neurological Exam Neurological exam: Present: CN II-XII intact, oriented X3, no focal deficits. Absent: pronater drift, facial droop, speech deficit Additional comments: Continued right hemiparesis. RUE with 3/5 movement both prox and distal. Continues poor fine motor. LE 5/5 - Skin Skin exam: Present: dry, intact Internal Medicine: Result - Labs CBC & Chem 7: 09/14/18 05:55 09/14/18 05:55 - ABG Interpretation ABG results: PT/INR, D-dimer PT 23.4 Seconds (9.4-12.1) H D 09/02/18 05:10 Consult Discharge Plan - Plan Referrals: Tiffany Villasenor MD [Primary Care Provider] -
--- NOTE | 2018-09-16 15:06 | Rehab Psychology Progress Note ---
Date of Encounter: 09/16/18 Time of Encounter: 11:30 Subjective - Patient Report Patient Report: Continues to request to go home. Mood "good". Stated she is stubborn. Expressed concerns with being out in public in . - Symptoms Symptoms: Hx of being a "loner" and discussed past behaviors and concerns of current isolation upon DC. Self conscious of being in WC Objective - WHODAS Functional Impairment Concentration, Problem-solving, Communication: Mild Social Functioning: Mild Community Involvement/Hobbies: Moderate - Comments Functional Status Comments: Discussed a community outting to [employer] while here to experience being in in public. - Mental Status Mental Status Changes: OX3 Assessment and Plan - Response to Treatment Response to Treatment: Improved - Prognosis Prognosis: Good - Treatment Plan Treatment Plan Recommendations: Continue Current Plan/Goals Changes in Treatment Plan Goals: Continued work on acceptance. Treatment Frequency: weekly Next Session Date: 09/23/18 Procedures - Intervention Interventions: Cognitive/Behavioral Therapy - Modality Modality: Psychotherapy 30 minutes - Participants Therapy Participant: Patient - Session Time Session Start Time: 11:30 Session Stop Time: 12:00
[2018-09-16 16:26] LABS: Bilirubin,Urine Negative (Negative); Blood,Urine Negative (Negative); Clarity,Urine Clear (Clear); Color,Urine Yellow (Yellow); Glucose,Urine (UA) Normal (Normal); Ketones,Urine Negative (Negative); Leukocyte Esterase,Urine Small (Negative); Nitrite,Urine Negative (Negative); PH,Urine 5.5 pH Units (5.0-8.0); Protein,Urine 100 mg/dL (Neg-Trace); Urobilinogen,Urine Normal (Normal)
[2018-09-16 16:28] LABS: Bacteria,Urine Few per hpf (None-Few); Squamous Epithelial Cell,Urine Few per lpf (None-Few)
[2018-09-16] MEDS: *HR* Rivaroxaban 15 MG TABLET PO SCH (21:21)
[2018-09-16] MEDS: Nitrofurantoin (BID) 100 MG CAPSULE PO SCH (22:31)
[2018-09-17] MEDS: Ondansetron ODT 4 MG TAB.RAPDIS SL PRN ×3 (03:04→14:04)
[2018-09-17] MEDS: Nitrofurantoin (BID) 100 MG CAPSULE PO SCH (09:51)
--- NOTE | 2018-09-17 10:22 | Internal Med Progress Note ---
Date of Encounter: 09/17/18 Time of Encounter: 10:19 - Assessment and plan (1) CVA (cerebral vascular accident) Current Visit: Yes Status: Acute Assessment and plan: No acute issues. Patient's neurological exam has improved with her right hemiparesis. Patient does seem to have a slight increased in strength to the RLE, which is now at 4/5, but continues to have only gross motor movement of his right hand. Patient's distal muscle strength to her hand appears at 3/5. Left extremities and 5/5 muscle strength. We will continue with current therapy. Qualifiers: CVA mechanism: unspecified Qualified Code(s): I63.9 - Cerebral infarction, unspecified (2) HTN (hypertension) Current Visit: Yes Status: Chronic Assessment and plan: No acute issues. Patient's blood pressures remained stable. We will continue with goal of less than 160 systolic. We will continue with current medications Qualifiers: Hypertension type: essential hypertension Qualified Code(s): I10 - Essential (primary) hypertension (3) Diabetes Current Visit: Yes Status: Chronic Assessment and plan: No acute issues. Patient's fingerstick show most readings less than 150. We will continue with current coverage. Qualifiers: Diabetes mellitus type: type 2 Diabetes mellitus residential insulin use: without residential use Diabetes mellitus complication status: with kidney complications Diabetes mellitus complication detail: with chronic kidney disease Chronic kidney disease stage: stage 3 (moderate) Qualified Code(s): E11.22 - Type 2 diabetes mellitus with diabetic chronic kidney disease; N18.3 - Chronic kidney disease, stage 3 (moderate) (4) Ulcerative colitis Current Visit: Yes Status: Chronic Assessment and plan: No acute issues. Patient denies any loose stools or abdominal cramping. Will continue with current plan of care Qualifiers: Ulcerative colitis location: unspecified ulcerative colitis location Digestive disease complication type: unspecified complication Qualified Code(s): K51.919 - Ulcerative colitis, unspecified with unspecified complications (5) Atrial fibrillation Current Visit: Yes Status: Chronic Assessment and plan: No acute issues. Patient's heart rate remains controlled at less than 100. Continue on current medications to include Xarelto. Denies any palpitations or CP Qualifiers: Atrial fibrillation type: paroxysmal Qualified Code(s): I48.0 - Paroxysmal atrial fibrillation (6) UTI (urinary tract infection) Current Visit: Yes Status: Acute Assessment and plan: Patient with a positive urinalysis and culture showing UTI. Patient was started on Macrobid yesterday but has had issues with nausea and vomiting since starting on the medication last evening. We will change patient's medication to Bactrim DS. Qualifiers: Urinary tract infection type: site unspecified Hematuria presence: without hematuria Qualified Code(s): N39.0 - Urinary tract infection, site not specified - Time Spent With Patient less than 15 minutes - Subjective Interval history: Patient appears relaxed currently denies any discomforts or shortness of breath. Patient has had complaints of nausea and has vomited once during the night after starting on Macrobid last evening for a UTI. Patient denies any abdominal cramping. Denies any other triggers for her nausea. Patient continues to progress well with physical therapy and states that she feels her movement to her right extremities has improved. - Constitutional Vitals: Temp Pulse Resp BP Pulse Ox 98.8 F 101 16 132/75 91 09/17/18 06:46 09/17/18 06:46 09/17/18 06:46 09/17/18 06:46 09/17/18 06:46 General appearance: Present: cooperative, A&O X 3, pleasant, no acute distress, answers questions appropriately - Head Head exam: Present: atraumatic, normocephalic - Eye Eye exam: Present: PERRL, conjuntiva pink, sclera anicteric Pupils: Present: PERRL - Neck Neck exam general surgery: Present: supple, trachea midline. Absent: lymphadenopathy - Respiratory Respiratory exam: Present: CTAB. Absent: accessory muscle use, rales, rhonchi, wheezes - Cardiovascular Cardiovascular exam: Present: RRR, +S1, +S2. Absent: diastolic murmur, gallop, rubs, systolic murmur - GI/Abdominal GI/Abdominal exam: Present: normal bowel sounds, soft, no peritoneal signs. Absent: distended, tenderness - Extremities Exam Extremities exam: Present: warm, radial pulses palpable and symmetrical. Absent: calf tenderness, cyanotic, pedal edema - Neurological Exam Neurological exam: Present: CN II-XII intact, oriented X3. Absent: pronater drift, facial droop, speech deficit Additional comments: Patient continues with right hemiparesis with right extremities showing 4/5 muscle strength with noted continued gross motor movement of right hand. Distal motor strength on right appears at 3/5 muscle strength on an grasp and wrist flexion. Left extremities have 5/5. - Skin Skin exam: Present: dry, intact Internal Medicine: Result - Labs CBC & Chem 7: 09/14/18 05:55 09/14/18 05:55 Labs: Urine 09/16/18 Range/Units 15:40 Urine Color Yellow (Yellow) Urine Clarity Clear (Clear) Urine pH 5.5 (5.0-8.0) pH Units Ur Specific Rufus 1.020 (1.010-1.025) Urine Protein 100 H (Neg-Trace) mg/dL Urine Glucose (UA) Normal (Normal) mg/dL - ABG Interpretation ABG results: PT/INR, D-dimer PT 23.4 Seconds (9.4-12.1) H D 09/02/18 05:10 Consult Discharge Plan - Plan Referrals: Tiffany Villasenor MD [Primary Care Provider] -
[2018-09-17] MEDS: Aspirin Enteric Coated 81 MG Tablet PO SCH (11:12)
[2018-09-17] MEDS: Lisinopril 20 MG TABLET PO SCH (11:12)
[2018-09-17] MEDS: Sulfamethoxazole/Trimeth DS 1 EACH TABLET PO SCH ×2 (11:12→20:20)
[2018-09-17] MEDS: Furosemide 40 MG TABLET PO SCH (11:12)
[2018-09-17] MEDS: amLODIPine 5 MG TABLET PO SCH (11:12)
[2018-09-17] MEDS: Mesalamine 250 MG CAPSULE.ER PO SCH (11:12)
[2018-09-17] MEDS: Metoprolol XL (24 HR) Succ 25 MG TAB.ER.24H PO SCH (11:12)
[2018-09-17] MEDS: Acetaminophen 325 MG TABLET PO PRN (14:03)
[2018-09-17] MEDS: *HR* Rivaroxaban 15 MG TABLET PO SCH (20:20)
[2018-09-17] MEDS: Melatonin 3 MG TABLET PO PRN (20:20)
[2018-09-18] MEDS: Sulfamethoxazole/Trimeth DS 1 EACH TABLET PO SCH ×2 (09:22→20:49)
[2018-09-18] MEDS: Aspirin Enteric Coated 81 MG Tablet PO SCH (09:22)
[2018-09-18] MEDS: Furosemide 40 MG TABLET PO SCH (09:22)
[2018-09-18] MEDS: amLODIPine 5 MG TABLET PO SCH (09:22)
[2018-09-18] MEDS: Metoprolol XL (24 HR) Succ 25 MG TAB.ER.24H PO SCH (09:23)
[2018-09-18] MEDS: Mesalamine 250 MG CAPSULE.ER PO SCH (09:23)
[2018-09-18] MEDS: Lisinopril 20 MG TABLET PO SCH (09:23)
--- NOTE | 2018-09-18 10:26 | Internal Med Progress Note ---
Date of Encounter: 09/18/18 Time of Encounter: 10:24 - Assessment and plan (1) CVA (cerebral vascular accident) Current Visit: Yes Status: Acute Assessment and plan: no new neurological deficits. participating with PT, OT and ST, will follow progress. f/u with neuro as scheduled. Qualifiers: CVA mechanism: unspecified Qualified Code(s): I63.9 - Cerebral infarction, unspecified (2) Diabetes Current Visit: Yes Status: Chronic Assessment and plan: continue fingerstick bloods sugars. continue current medication. controlled. Qualifiers: Diabetes mellitus type: type 2 Diabetes mellitus fci insulin use: without terminal press operator use Diabetes mellitus complication status: with kidney compl ications Diabetes mellitus complication detail: with chronic kidney disease Chronic kidney disease stage: stage 3 (moderate) Qualified Code(s): E11.22 - Type 2 diabetes mellitus with diabetic chronic kidney disease; N18.3 - Chronic kidney disease, stage 3 (moderate) (3) Hypertension Current Visit: Yes Status: Acute Assessment and plan: ccontrolled with current medication. Monitor blood pressure. Qualifiers: Hypertension type: unspecified secondary hypertension Qualified Code(s): I15.9 - Secondary hypertension, unspecified; I15 - Secondary hypertension (4) Atrial fibrillation Current Visit: Yes Status: Chronic Assessment and plan: rate and rythm controlled. continue xarelto. Qualifiers: Atrial fibrillation type: paroxysmal Qualified Code(s): I48.0 - Paroxysmal atrial fibrillation (5) UTI (urinary tract infection) Current Visit: Yes Status: Acute Assessment and plan: denies urinary symptoms. continue bactrim Qualifiers: Urinary tract infection type: site unspecified Hematuria presence: without hematuria Qualified Code(s): N39.0 - Urinary tract infection, site not specified - Time Spent With Patient less than 15 minutes - Subjective Interval history: participating well with therapy. min assist with therapy transfers. no new neurological deficits. Denies fever, chills, nausea, vomitting or diarrhea. Denies shortness of breath or chest pain. maintaining appetite and hydration. on atb for UTI. - Constitutional Vitals: Temp Pulse Resp BP Pulse Ox 97.6 F 66 16 119/61 98 09/18/18 07:00 09/18/18 07:00 09/18/18 07:00 09/18/18 07:00 09/18/18 07:00 General appearance: Present: cooperative, A&O X 3, pleasant, no acute distress, answers questions appropriately - Head Head exam: Present: atraumatic, normocephalic - Eye Eye exam: Present: PERRL, conjuntiva pink, sclera anicteric Pupils: Present: PERRL - Neck Neck exam general surgery: Present: supple, trachea midline. Absent: lymphadenopathy - Respiratory Respiratory exam: Present: CTAB. Absent: accessory muscle use, rales, rhonchi, wheezes - Cardiovascular Cardiovascular exam: Present: irregular rhythm, +S1, +S2. Absent: diastolic murmur, gallop, rubs, systolic murmur - GI/Abdominal GI/Abdominal exam: Present: normal bowel sounds, soft, no peritoneal signs. Absent: distended, tenderness - Extremities Exam Extremities exam: Present: warm, radial pulses palpable and symmetrical. Absen t: calf tenderness, cyanotic, pedal edema Additional comments: right sided weakness, strength 4/5 - Neurological Exam Neurological exam: Present: CN II-XII intact, oriented X3, no focal deficits. Absent: pronater drift, facial droop, speech deficit - Skin Skin exam: Present: dry, intact Internal Medicine: Result - Labs CBC & Chem 7: 09/14/18 05:55 09/14/18 05:55 - ABG Interpretation ABG results: PT/INR, D-dimer PT 23.4 Seconds (9.4-12.1) H D 09/02/18 05:10 Consult Discharge Plan - Plan Referrals: Tiffany Villasenor MD [Primary Care Provider] -
[2018-09-18] MEDS: Melatonin 3 MG TABLET PO PRN (20:48)
[2018-09-18] MEDS: *HR* Rivaroxaban 15 MG TABLET PO SCH (20:49)
--- NOTE | 2018-09-19 08:36 | Internal Med Progress Note ---
Date of Encounter: 09/19/18 Time of Encounter: 08:34 - Assessment and plan (1) HTN (hypertension) Current Visit: Yes Status: Chronic Assessment and plan: stable on meds no side effects no dizziness continue present medication s and adjust as needed Qualifiers: Hypertension type: essential hypertension Qualified Code(s): I10 - Essential (primary) hypertension (2) Atrial fibrillation Current Visit: Yes Status: Chronic Assessment and plan: rate is s table no acute issues at the present time continue to follow Qualifiers: Atrial fibrillation type: paroxysmal Qualified Code(s): I48.0 - Paroxysmal atrial fibrillation (3) CVA (cerebral vascular accident) Current Visit: Yes Status: Acute Assessment and plan: right side weakness getting better legs strong hen arm Qualifiers: CVA mechanism: unspecified Qualified Code(s): I63.9 - Cerebral infarction, unspecified - Subjective Interval history: Cross coverage , sitting in chair without any complains Alert to place and person denines any acute issues - Constitutional Vitals: Temp Pulse Resp BP Pulse Ox 98.5 F 74 16 118/71 91 09/19/18 07:00 09/19/18 07:00 09/19/18 07:00 09/19/18 07:00 09/19/18 07:00 General appearance: Present: cooperative, A&O X 3, pleasant, no acute distress, answers questions appropriately - Head Head exam: Present: atraumatic - Eye Eye exam: Present: EOMI, PERRL Pupils: Present: PERRL - Neck Neck exam general surgery: Present: full ROM, supple. Absent: tenderness, nuchal rigidity - Respiratory Respiratory exam: Present: CTAB. Absent: chest wall tenderness, prolonged expiratory phase, rales, respiratory distress, stridor, wheezes, tachypnea - Cardiovascular Cardiovascular exam: Present: irregular rhythm, +S1, +S2. Absent: JVD, systolic murmur - GI/Abdominal GI/Abdominal exam: Present: normal bowel sounds, soft. Absent: distended, guarding, rebound, rigid, tenderness - Extremities Exam Extremities exam: Absent: pedal edema, tenderness - Neurological Exam Neurological exam: Present: CN II-XII intact, oriented X3. Absent: facial droop, speech deficit Additional comments: right weakness in upper arm and leg 3/5 when compared to left side otherwise no cranial deficit noted Internal Medicine: Result - Labs CBC & Chem 7: 09/14/18 05:55 09/14/18 05:55 - ABG Interpretation ABG results: PT/INR, D-dimer PT 23.4 Seconds (9.4-12.1) H D 09/02/18 05:10 Consult Discharge Plan - Plan Referrals: Tiffany Villasenor MD [Primary Care Provider] -
[2018-09-19] MEDS: Lisinopril 20 MG TABLET PO SCH (10:30)
[2018-09-19] MEDS: Mesalamine 250 MG CAPSULE.ER PO SCH (10:30)
[2018-09-19] MEDS: amLODIPine 5 MG TABLET PO SCH (10:30)
[2018-09-19] MEDS: Aspirin Enteric Coated 81 MG Tablet PO SCH (10:31)
[2018-09-19] MEDS: Metoprolol XL (24 HR) Succ 25 MG TAB.ER.24H PO SCH (10:32)
[2018-09-19] MEDS: Furosemide 40 MG TABLET PO SCH (10:33)
[2018-09-19] MEDS: Sulfamethoxazole/Trimeth DS 1 EACH TABLET PO SCH ×2 (10:33→20:24)
[2018-09-19] MEDS: Melatonin 3 MG TABLET PO PRN (20:24)
[2018-09-19] MEDS: *HR* Rivaroxaban 15 MG TABLET PO SCH (20:24)
--- NOTE | 2018-09-20 07:56 | Internal Med Progress Note ---
Date of Encounter: 09/20/18 Time of Encounter: 07:54 - Assessment and plan (1) HTN (hypertension) Current Visit: Yes Status: Chronic Assessment and plan: stable on meds no side effects no dizziness continue present medication s Qualifiers: Hypertension type: essential hypertension Qualified Code(s): I10 - Essential (primary) hypertension (2) Atrial fibrillation Current Visit: Yes Status: Chronic Assessment and plan: rate is stable no acute issues at the present time. Qualifiers: Atrial fibrillation type: paroxysmal Qualified Code(s): I48.0 - Paroxysmal atrial fibrillation (3) CVA (cerebral vascular accident) Current Visit: Yes Status: Acute Assessment and plan: Right side weakness getting better, She has more strength in her leg then arm . Getting rehab and improving slowly UA results noted mixed aimee , no evidence of infection nothing more to follow Qualifiers: CVA mechanism: unspecified Qualified Code(s): I63.9 - Cerebral infarction, unspecified - Subjective Interval history: Cross coverage , No acute issues no fever or chills no burning urine or change in mental status to indicate any infection. - Constitutional Vitals: Temp Pulse Resp BP Pulse Ox 98.7 F 93 16 135/75 93 09/20/18 07:23 09/20/18 07:23 09/20/18 07:23 09/20/18 07:23 09/20/18 07:23 General appearance: Present: cooperative, A&O X 3, pleasant, no acute distress, answers questions appropriately - Head Head exam: Present: atraumatic - Eye Eye exam: Present: conjunctival injection, PERRL. Absent: scleral icterus Pupils: Present: PERRL - Neck Neck exam general surgery: Present: full ROM, supple. Absent: tenderness, nuchal rigidity - Respiratory Respiratory exam: Present: CTAB. Absent: chest wall tenderness, prolonged expiratory phase, rales, respiratory distress, stridor, wheezes, tachypnea - Cardiovascular Cardiovascular exam: Present: irregular rhythm, +S1, +S2 Additional comments: rate stable - GI/Abdominal GI/Abdominal exam: Present: normal bowel sounds, soft. Absent: distended, guarding, rebound, rigid, tenderness, no peritoneal signs - Extremities Exam Extremities exam: Absent: pedal edema, tenderness - Neurological Exam Neurological exam: Present: CN II-XII intact, oriented X3. Absent: facial droop, speech deficit Additional comments: Right side weakness as before no new change Improving strength slowly . - Expanded Neurological Exam Neurological exam expanded: Present: ataxia Internal Medicine: Result - Labs CBC & Chem 7: 09/14/18 05:55 09/14/18 05:55 - ABG Interpretation ABG results: PT/INR, D-dimer PT 23.4 Seconds (9.4-12.1) H D 09/02/18 05:10 Consult Discharge Plan - Plan Referrals: Tiffany Villasenor MD [Primary Care Provider] -
[2018-09-20] MEDS: Mesalamine 250 MG CAPSULE.ER PO SCH (08:25)
[2018-09-20] MEDS: Sulfamethoxazole/Trimeth DS 1 EACH TABLET PO SCH ×2 (08:25→21:22)
[2018-09-20] MEDS: Lisinopril 20 MG TABLET PO SCH (08:25)
[2018-09-20] MEDS: amLODIPine 5 MG TABLET PO SCH (08:26)
[2018-09-20] MEDS: Aspirin Enteric Coated 81 MG Tablet PO SCH (08:26)
[2018-09-20] MEDS: Furosemide 40 MG TABLET PO SCH (08:26)
[2018-09-20] MEDS: Metoprolol XL (24 HR) Succ 25 MG TAB.ER.24H PO SCH (08:26)
[2018-09-20] MEDS: *HR* Rivaroxaban 15 MG TABLET PO SCH (21:22)
[2018-09-20] MEDS: Melatonin 3 MG TABLET PO PRN (21:22)
[2018-09-21] MEDS: Furosemide 40 MG TABLET PO SCH (08:30)
[2018-09-21] MEDS: Metoprolol XL (24 HR) Succ 25 MG TAB.ER.24H PO SCH (08:30)
[2018-09-21] MEDS: Aspirin Enteric Coated 81 MG Tablet PO SCH (08:30)
[2018-09-21] MEDS: Lisinopril 20 MG TABLET PO SCH (08:31)
[2018-09-21] MEDS: amLODIPine 5 MG TABLET PO SCH (08:31)
[2018-09-21] MEDS: Mesalamine 250 MG CAPSULE.ER PO SCH (08:31)
[2018-09-21] MEDS: Sulfamethoxazole/Trimeth DS 1 EACH TABLET PO SCH ×2 (08:31→21:25)
--- NOTE | 2018-09-21 09:56 | Internal Med Progress Note ---
Date of Encounter: 09/21/18 Time of Encounter: 09:51 - Assessment and plan (1) CVA (cerebral vascular accident) Current Visit: Yes Status: Acute Assessment and plan: no new neurological deficits. participating with PT, OT and ST, will follow progress. f/u with neuro as scheduled. Qualifiers: CVA mechanism: unspecified Qualified Code(s): I63.9 - Cerebral infarction, unspecified (2) Diabetes Current Visit: Yes Status: Chronic Assessment and plan: continue fingerstick bloods sugars. continue current medication. controlled. Qualifiers: Diabetes mellitus type: type 2 Diabetes mellitus penitentiary insulin use: without long term care social worker use Diabetes mellitus complication status: with kidney compl ications Diabetes mellitus complication detail: with chronic kidney disease Chronic kidney disease stage: stage 3 (moderate) Qualified Code(s): E11.22 - Type 2 diabetes mellitus with diabetic chronic kidney disease; N18.3 - Chronic kidney disease, stage 3 (moderate) (3) Hypertension Current Visit: Yes Status: Acute Assessment and plan: ccontrolled with current medication. Monitor blood pressure. Qualifiers: Hypertension type: unspecified secondary hypertension Qualified Code(s): I15.9 - Secondary hypertension, unspecified; I15 - Secondary hypertension (4) Atrial fibrillation Current Visit: Yes Status: Chronic Assessment and plan: rate and rythm controlled. continue xarelto. Qualifiers: Atrial fibrillation type: paroxysmal Qualified Code(s): I48.0 - Paroxysmal atrial fibrillation (5) UTI (urinary tract infection) Current Visit: Yes Status: Acute Assessment and plan: denies urinary symptoms. continue bactrim Qualifiers: Urinary tract infection type: site unspecified Hematuria presence: without hematuria Qualified Code(s): N39.0 - Urinary tract infection, site not specified - Time Spent With Patient less than 15 minutes - Subjective Interval history: participating well with therapy. min assist with therapy transfers. no new neurological deficits. Denies fever, chills, nausea, vomitting or diarrhea. Denies shortness of breath or chest pain. maintaining appetite and hydration. on atb for UTI. - Constitutional Vitals: Temp Pulse Resp BP Pulse Ox 98.4 F 72 16 136/81 96 09/21/18 06:57 09/21/18 06:57 09/21/18 06:57 09/21/18 06:57 09/21/18 06:57 General appearance: Present: cooperative, A&O X 3, pleasant, no acute distress, answers questions appropriately - Head Head exam: Present: atraumatic, normocephalic - Eye Eye exam: Present: PERRL, conjuntiva pink, sclera anicteric Pupils: Present: PERRL - Neck Neck exam general surgery: Present: supple, trachea midline. Absent: lymphadenopathy - Respiratory Respiratory exam: Present: CTAB. Absent: accessory muscle use, rales, rhonchi, wheezes - Cardiovascular Cardiovascular exam: Present: irregular rhythm, +S1, +S2. Absent: diastolic murmur, gallop, rubs, systolic murmur - GI/Abdominal GI/Abdominal exam: Present: normal bowel sounds, soft, no peritoneal signs. Absent: distended, tenderness - Extremities Exam Extremities exam: Present: warm, radial pulses palpable and symmetrical. Absen t: calf tenderness, cyanotic, pedal edema Additional comments: right E weakness, strength 4/5 - Neurological Exam Neurological exam: Present: CN II-XII intact, oriented X3, no focal deficits. Absent: pronater drift, facial droop, speech deficit - Skin Skin exam: Present: dry, intact Additional comments: skin tears X 2 to left lower [place] area. no sign of infection. Internal Medicine: Result - Labs CBC & Chem 7: 09/14/18 05:55 09/14/18 05:55 - ABG Interpretation ABG results: PT/INR, D-dimer PT 23.4 Seconds (9.4-12.1) H D 09/02/18 05:10 Consult Discharge Plan - Plan Referrals: Tiffany Villasenor MD [Primary Care Provider] -
[2018-09-21] MEDS: Acetaminophen 325 MG TABLET PO PRN (21:24)
[2018-09-21] MEDS: *HR* Rivaroxaban 15 MG TABLET PO SCH (21:25)
[2018-09-21] MEDS: Melatonin 3 MG TABLET PO PRN (21:25)
[2018-09-22] MEDS: amLODIPine 5 MG TABLET PO SCH (08:43)
[2018-09-22] MEDS: Lisinopril 20 MG TABLET PO SCH (08:43)
[2018-09-22] MEDS: Mesalamine 250 MG CAPSULE.ER PO SCH (08:43)
[2018-09-22] MEDS: Sulfamethoxazole/Trimeth DS 1 EACH TABLET PO SCH ×2 (08:43→20:24)
[2018-09-22] MEDS: Metoprolol XL (24 HR) Succ 25 MG TAB.ER.24H PO SCH (08:44)
[2018-09-22] MEDS: Furosemide 40 MG TABLET PO SCH (08:44)
[2018-09-22] MEDS: Aspirin Enteric Coated 81 MG Tablet PO SCH (08:44)
--- NOTE | 2018-09-22 11:23 | Internal Med Progress Note ---
Date of Encounter: 09/22/18 Time of Encounter: 11:21 - Assessment and plan (1) CVA (cerebral vascular accident) Current Visit: Yes Status: Acute Assessment and plan: no new neurological deficits. participating with PT, OT and ST, will follow progress. f/u with neuro as scheduled. has appt on 09/24 Qualifiers: CVA mechanism: unspecified Qualified Code(s): I63.9 - Cerebral infarction, unspecified (2) Diabetes Current Visit: Yes Status: Chronic Assessment and plan: continue fingerstick bloods sugars. continue current medication. controlled. Qualifiers: Diabetes mellitus type: type 2 Diabetes mellitus residential insulin use: without residential use Diabetes mellitus complication status: with kidney complications Diabetes mellitus complication detail: with chronic kidney disease Chronic kidney disease stage: stage 3 (moderate) Qualified Code(s): E11.22 - Type 2 diabetes mellitus with diabetic chronic kidney disease; N18.3 - Chronic kidney disease, stage 3 (moderate) (3) Hypertension Current Visit: Yes Status: Acute Assessment and plan: ccontrolled with current medication. Monitor blood pressure. Qualifiers: Hypertension type: unspecified secondary hypertension Qualified Code(s): I15.9 - Secondary hypertension, unspecified; I15 - Secondary hypertension (4) Atrial fibrillation Current Visit: Yes Status: Chronic Assessment and plan: rate and rythm controlled. continue xarelto. Qualifiers: Atrial fibrillation type: paroxysmal Qualified Code(s): I48.0 - Paroxysmal atrial fibrillation (5) UTI (urinary tract infection) Current Visit: Yes Status: Acute Assessment and plan: denies urinary symptoms. continue bactrim Qualifiers: Urinary tract infection type: site unspecified Hematuria presence: without hematuria Qualified Code(s): N39.0 - Urinary tract infection, site not specified - Subjective Interval history: participating well with therapy. min assist with therapy transfers. no new neurological deficits. Denies fever, chills, nausea, vomitting or diarrhea. Denies shortness of breath or chest pain. maintaining appetite and hydration. daughter observing therapy session. - Constitutional Vitals: Temp Pulse Resp BP Pulse Ox 97.7 F 60 20 124/77 97 09/22/18 11:10 09/22/18 11:10 09/22/18 11:10 09/22/18 11:10 09/22/18 11:10 General appearance: Present: cooperative, A&O X 3, pleasant, no acute distress, answers questions appropriately - Head Head exam: Present: atraumatic, normocephalic - Eye Eye exam: Present: PERRL, conjuntiva pink, sclera anicteric Pupils: Present: PERRL - Neck Neck exam general surgery: Present: supple, trachea midline. Absent: lymphadenopathy - Respiratory Respiratory exam: Present: CTAB. Absent: accessory muscle use, rales, rhonchi, wheezes - Cardiovascular Cardiovascular exam: Present: irregular rhythm, +S1, +S2. Absent: diastolic murmur, gallop, rubs, systolic murmur - GI/Abdominal GI/Abdominal exam: Present: normal bowel sounds, soft, no peritoneal signs. Absent: distended, tenderness - Extremities Exam Extremities exam: Present: warm, radial pulses palpable and symmetrical. Absent: calf tenderness, cyanotic, pedal edema Additional comments: RUE weakness - Neurological Exam Neurological exam: Present: CN II-XII intact, oriented X3, no focal deficits. Absent: pronater drift, facial droop, speech deficit - Skin Skin exam: Present: dry, intact Internal Medicine: Result - Labs CBC & Chem 7: 09/14/18 05:55 09/14/18 05:55 - ABG Interpretation ABG results: PT/INR, D-dimer PT 23.4 Seconds (9.4-12.1) H D 09/02/18 05:10 Consult Discharge Plan - Plan Referrals: Tiffany Villasenor MD [Primary Care Provider] -
[2018-09-22] MEDS: Melatonin 3 MG TABLET PO PRN (20:21)
[2018-09-22] MEDS: *HR* Rivaroxaban 15 MG TABLET PO SCH (20:21)
[2018-09-23] MEDS: amLODIPine 5 MG TABLET PO SCH (08:13)
[2018-09-23] MEDS: Lisinopril 20 MG TABLET PO SCH (08:13)
[2018-09-23] MEDS: Mesalamine 250 MG CAPSULE.ER PO SCH (08:14)
[2018-09-23] MEDS: Sulfamethoxazole/Trimeth DS 1 EACH TABLET PO SCH ×2 (08:14→19:55)
[2018-09-23] MEDS: Aspirin Enteric Coated 81 MG Tablet PO SCH (08:15)
[2018-09-23] MEDS: Metoprolol XL (24 HR) Succ 25 MG TAB.ER.24H PO SCH (08:15)
[2018-09-23] MEDS: Furosemide 40 MG TABLET PO SCH (08:15)
--- NOTE | 2018-09-23 11:17 | Internal Med Progress Note ---
Date of Encounter: 09/23/18 Time of Encounter: 11:15 - Assessment and plan (1) CVA (cerebral vascular accident) Current Visit: Yes Status: Acute Assessment and plan: No acute issues. Patient's neurological exam has improved with her right hemiparesis. Patient does seem to have a slight increased in strength to the RLE, which is now at 4/5, but continues to have only gross motor movement of his right hand. Patient's distal muscle strength to her hand appears at 3/5. Left extremities at 5/5 muscle strength. We will continue with current therapy. Qualifiers: CVA mechanism: unspecified Qualified Code(s): I63.9 - Cerebral infarction, unspecified (2) HTN (hypertension) Current Visit: Yes Status: Chronic Assessment and plan: No acute issues. Patient's blood pressures remained stable. We will continue with goal of less than 160 systolic. We will continue with current medications Qualifiers: Hypertension type: essential hypertension Qualified Code(s): I10 - Essential (primary) hypertension (3) Diabetes Current Visit: Yes Status: Chronic Assessment and plan: No acute issues. Patient's fingerstick show most readings less than 150. We will continue with current coverage. Qualifiers: Diabetes mellitus type: type 2 Diabetes mellitus longterm insulin use: without longterm use Diabetes mellitus complication status: with kidney complications Diabetes mellitus complication detail: with chronic kidney disease Chronic kidney disease stage: stage 3 (moderate) Qualified Code(s): E11.22 - Type 2 diabetes mellitus with diabetic chronic kidney disease; N18.3 - Chronic kidney disease, stage 3 (moderate) (4) Ulcerative colitis Current Visit: Yes Status: Chronic Assessment and plan: No acute issues. Patient denies any loose stools or abdominal cramping. Will continue with current plan of care Qualifiers: Ulcerative colitis location: unspecified ulcerative colitis location Digestive disease complication type: unspecified complication Qualified Code(s): K51.919 - Ulcerative colitis, unspecified with unspecified complications (5) Atrial fibrillation Current Visit: Yes Status: Chronic Assessment and plan: No acute issues. Patient's heart rate remains controlled at less than 100. Continue on current medications to include Xarelto. Denies any palpitations or CP Qualifiers: Atrial fibrillation type: paroxysmal Qualified Code(s): I48.0 - Paroxysmal atrial fibrillation - Time Spent With Patient less than 15 minutes - Subjective Interval history: Patient appears relaxed currently denies any discomforts or shortness of breath. Patient continues to progress well with physical therapy and states that she feels her movement to her right extremities has improved. - Constitutional Vitals: Temp Pulse Resp BP Pulse Ox 97.9 F 72 15 151/90 94 09/23/18 08:31 09/23/18 08:31 09/23/18 08:31 09/23/18 08:31 09/23/18 08:31 General appearance: Present: cooperative, A&O X 3, pleasant, no acute distress, answers questions appropriately - Head Head exam: Present: atraumatic, normocephalic - Eye Eye exam: Present: PERRL, conjuntiva pink, sclera anicteric Pupils: Present: PERRL - Neck Neck exam general surgery: Present: supple, trachea midline. Absent: lymphadenopathy - Respiratory Respiratory exam: Present: CTAB. Absent: accessory muscle use, rales, rhonchi, wheezes - Cardiovascular Cardiovascular exam: Present: RRR, +S1, +S2. Absent: diastolic murmur, gallop, rubs, systolic murmur - GI/Abdominal GI/Abdominal exam: Present: normal bowel sounds, soft, no peritoneal signs. Absent: distended, tenderness - Extremities Exam Extremities exam: Present: warm, radial pulses palpable and symmetrical. Absent: calf tenderness, cyanotic, pedal edema - Neurological Exam Neurological exam: Present: CN II-XII intact, oriented X3. Absent: pronater drift, facial droop, speech deficit Additional comments: Patient continues with right hemiparesis. Patient does seem to have a slight i ncreased in strength to the RLE, which is now at 4/5, but continues to have only gross motor movement of his right hand. Patient's distal muscle strength to her hand appears at 3/5. Left extremities at 5/5 muscle strength. - Skin Skin exam: Present: dry, intact Internal Medicine: Result - Labs CBC & Chem 7: 09/14/18 05:55 09/14/18 05:55 - ABG Interpretation ABG results: PT/INR, D-dimer PT 23.4 Seconds (9.4-12.1) H D 09/02/18 05:10 Consult Discharge Plan - Plan Referrals: Tiffany Villasenor MD [Primary Care Provider] -
--- NOTE | 2018-09-23 14:13 | Rehab Psychology Progress Note ---
Date of Encounter: 09/23/18 Time of Encounter: 10:30 Subjective - Patient Report Patient Report: Tearful that is not home and misses her cats. - Symptoms Symptoms: Some slowness with response. Objective - WHODAS Functional Impairment Concentration, Problem-solving, Communication: Moderate Social Functioning: Mild Community Involvement/Hobbies: Moderate - Comments Functional Status Comments: Perseverating on leaving and needs redirected. Some difficulty sustaining atte ntion. Stated she has to remind self "do what they say". She reports mood is good and hopeful. Discussed importance of home visit. - Mental Status Mental Status Changes: OX3 Assessment and Plan - Response to Treatment Response to Treatment: Improved - Prognosis Prognosis: Good - Treatment Plan Treatment Plan Recommendations: Continue Current Plan/Goals Changes in Treatment Plan Goals: Continue assisting with coping strategies to manage anxiety regarding physical changes. Treatment Frequency: weekly Next Session Date: 09/30/18 Procedures - Intervention Interventions: Cognitive/Behavioral Therapy - Modality Modality: Psychotherapy 30 minutes - Participants Therapy Participant: Patient - Session Time Session Start Time: 10:30 Session Stop Time: 11:00
[2018-09-23] MEDS: *HR* Rivaroxaban 15 MG TABLET PO SCH (19:55)
[2018-09-23] MEDS: Melatonin 3 MG TABLET PO PRN (19:55)
[2018-09-24] MEDS: Mesalamine 250 MG CAPSULE.ER PO SCH (08:20)
[2018-09-24] MEDS: amLODIPine 5 MG TABLET PO SCH (08:20)
[2018-09-24] MEDS: Aspirin Enteric Coated 81 MG Tablet PO SCH (08:21)
[2018-09-24] MEDS: Furosemide 40 MG TABLET PO SCH (08:21)
[2018-09-24] MEDS: Lisinopril 20 MG TABLET PO SCH (08:21)
[2018-09-24] MEDS: Metoprolol XL (24 HR) Succ 25 MG TAB.ER.24H PO SCH (08:21)
[2018-09-24] MEDS: Sulfamethoxazole/Trimeth DS 1 EACH TABLET PO SCH (08:21)
--- NOTE | 2018-09-24 10:30 | Event Note ---
Date of Encounter: 09/24/18 Time of Encounter: 10:29 Could not see patient because she was out of the building for a follow-up appointment with neurology.
[2018-09-24] MEDS: *HR* Rivaroxaban 15 MG TABLET PO SCH (20:17)
[2018-09-24] MEDS: Acetaminophen 325 MG TABLET PO PRN (20:17)
[2018-09-24] MEDS: Melatonin 3 MG TABLET PO PRN (20:17)
[2018-09-25] MEDS: Aspirin Enteric Coated 81 MG Tablet PO SCH (08:49)
[2018-09-25] MEDS: Lisinopril 20 MG TABLET PO SCH (08:49)
[2018-09-25] MEDS: Furosemide 40 MG TABLET PO SCH (08:49)
[2018-09-25] MEDS: Mesalamine 250 MG CAPSULE.ER PO SCH (08:49)
[2018-09-25] MEDS: Metoprolol XL (24 HR) Succ 25 MG TAB.ER.24H PO SCH (08:49)
[2018-09-25] MEDS: amLODIPine 5 MG TABLET PO SCH (08:50)
[2018-09-25] MEDS: Bisacodyl 10 MG RECTAL SUPPOSITORY RC PRN (10:10)
--- NOTE | 2018-09-25 10:49 | Internal Med Progress Note ---
Date of Encounter: 09/25/18 Time of Encounter: 10:47 - Assessment and plan (1) CVA (cerebral vascular accident) Current Visit: Yes Status: Acute Assessment and plan: No acute issues. Patient's neurological exam has improved with her right hemiparesis. Patient does seem to have a slight increased in strength to the RLE, which is now at 4/5, but continues to have only gross motor movement of his right hand. Patient's distal muscle strength to her hand appears at 3/5. Left extremities at 5/5 muscle strength. We will continue with current therapy. Qualifiers: CVA mechanism: unspecified Qualified Code(s): I63.9 - Cerebral infarction, unspecified (2) HTN (hypertension) Current Visit: Yes Status: Chronic Assessment and plan: No acute issues. Patient's blood pressures remained stable. We will continue with goal of less than 160 systolic. We will continue with current medications Qualifiers: Hypertension type: essential hypertension Qualified Code(s): I10 - Essential (primary) hypertension (3) Diabetes Current Visit: Yes Status: Chronic Assessment and plan: No acute issues. Patient's fingerstick show most readings less than 150. We will continue with current coverage. Qualifiers: Diabetes mellitus type: type 2 Diabetes mellitus alf insulin use: without alf use Diabetes mellitus complication status: with kidney complications Diabetes mellitus complication detail: with chronic kidney disease Chronic kidney disease stage: stage 3 (moderate) Qualified Code(s): E11.22 - Type 2 diabetes mellitus with diabetic chronic kidney disease; N18.3 - Chronic kidney disease, stage 3 (moderate) (4) Ulcerative colitis Current Visit: Yes Status: Chronic Assessment and plan: No acute issues. Patient denies any loose stools or abdominal cramping. Will continue with current plan of care Qualifiers: Ulcerative colitis location: unspecified ulcerative colitis location Digestive disease complication type: unspecified complication Qualified Code(s): K51.919 - Ulcerative colitis, unspecified with unspecified complications (5) Atrial fibrillation Current Visit: Yes Status: Chronic Assessment and plan: No acute issues. Patient's heart rate remains controlled at less than 100. Continue on current medications to include Xarelto. Denies any palpitations or CP Qualifiers: Atrial fibrillation type: paroxysmal Qualified Code(s): I48.0 - Paroxysmal atrial fibrillation (6) Constipation Current Visit: Yes Status: Acute Assessment and plan: Patient reports patient has had issues with passing hard stool. Patient given a fleets enema at this time and will review her current scheduled laxatives Qualifiers: Constipation type: unspecified constipation type Qualified Code(s): K59.00 - Constipation, unspecified - Time Spent With Patient less than 15 minutes - Subjective Interval history: Patient appears relaxed currently denies any discomforts or shortness of breath. Patient continues to progress well with physical therapy and states that she feels her movement to her right extremities has improved. Patient reports patient has had issues with constipation having difficulty passing hard stool - Constitutional Vitals: Temp Pulse Resp BP Pulse Ox 98.2 F 68 14 131/81 98 09/24/18 19:11 09/24/18 19:11 09/24/18 19:11 09/24/18 19:11 09/24/18 19:11 General appearance: Present: cooperative, A&O X 3, pleasant, no acute distress, answers questions appropriately Internal Medicine: Result - Labs CBC & Chem 7: 09/14/18 05:55 09/14/18 05:55 - ABG Interpretation ABG results: PT/INR, D-dimer PT 23.4 Seconds (9.4-12.1) H D 09/02/18 05:10 Consult Discharge Plan - Plan Referrals: Tiffany Villasenor MD [Primary Care Provider] -
[2018-09-25] MEDS: *HR* Rivaroxaban 15 MG TABLET PO SCH (20:32)
[2018-09-25] MEDS: Melatonin 3 MG TABLET PO PRN (20:32)
[2018-09-26] MEDS: Aspirin Enteric Coated 81 MG Tablet PO SCH (10:27)
[2018-09-26] MEDS: amLODIPine 5 MG TABLET PO SCH (10:27)
[2018-09-26] MEDS: Furosemide 40 MG TABLET PO SCH (10:28)
[2018-09-26] MEDS: Mesalamine 250 MG CAPSULE.ER PO SCH (10:28)
[2018-09-26] MEDS: Lisinopril 20 MG TABLET PO SCH (10:28)
[2018-09-26] MEDS: Metoprolol XL (24 HR) Succ 25 MG TAB.ER.24H PO SCH (10:28)
--- NOTE | 2018-09-26 13:22 | Internal Med Progress Note ---
Date of Encounter: 09/26/18 Time of Encounter: 12:40 - Subjective Interval history: - Assessment and plan (1) CVA (cerebral vascular accident) Current Visit: Yes Status: Acute Assessment and plan: No acute issues. Denies MOCTEZUMA or new weakness. He does have from CVA dense changes. Exam which shows right hemiplegia. Patient been participating in therapy, but complaint of slight fatigue at times We will continue with current plan of care and medications. Vital signs stable. Qualifiers: CVA mechanism: unspecified Qualified Code(s): I63.9 - Cerebral infarction, unspecified (2) HTN (hypertension) Current Visit: Yes Status: Chronic Assessment and plan: No acute issues. Patient's blood pressures remained stable. We will continue with goal of less than 160 systolic. We will continue with current medications Qualifiers: Hypertension type: essential hypertension Qualified Code(s): I10 - Essential (primary) hypertension (3) Diabetes Current Visit: Yes Status: Chronic Assessment and plan: No acute issues. Patient's fingerstick show most readings less than 150. We will continue with current coverage. Qualifiers: Diabetes mellitus type: type 2 Diabetes mellitus manager intermediate insulin use: without retirement use Diabetes mellitus complication status: with kidney complications Diabetes mellitus complication detail: with chronic kidney disease Chronic kidney disease stage: stage 3 (moderate) Qualified Code(s): E11.22 - Type 2 diabetes mellitus with diabetic chronic kidney disease; N18.3 - Chronic kidney disease, stage 3 (moderate) (4) Ulcerative colitis Current Visit: Yes Status: Chronic Assessment and plan: No acute issues. Patient denies any loose stools or abdominal cramping. no melana Will continue with current plan of care Qualifiers: Ulcerative colitis location: unspecified ulcerative colitis location Digestive disease complication type: unspecified complication Qualified Code(s): K51.919 - Ulcerative colitis, unspecified with unspecified complications (5) Atrial fibrillation Current Visit: Yes Status: Chronic Assessment and plan: No acute issues. Patient's heart rate remains controlled at less than 100. Continue on current medications to include Xarelto Qualifiers: Atrial fibrillation type: paroxysmal Qualified Code(s): I48.0 - Paroxysmal atrial fibrillation (6) CKD (chronic kidney disease) Current Visit: Yes Status: Chronic Assessment and plan: No acute issues. Patient's last creatinine was 1.19. We will continue with current medications and monitor patient's renal status Qualifiers: Chronic kidney disease stage: stage 3 (moderate) Qualified Code(s): N18.3 - Chronic kidney disease, stage 3 (moderate) - Time Spent With Patient less than 15 minutes - Subjective Interval history: Patient states she is feeling slightly stronger complains of constipation - EXAM General appearance: Present: alert, pleasant - Head Head exam: Present: atraumatic, normocephalic - Eye Eye exam: Present: PERRL, conjuntiva pink, sclera anicteric Pupils: Present: PERRL - Neck Neck exam general surgery: Present: supple, trachea midline. Absent: lymphadenopathy - Respiratory Respiratory exam: Present: CTAB. Absent: accessory muscle use, rales, rhonchi, wheezes - Cardiovascular Cardiovascular exam: Present: RRR, +S1, +S2. Absent: diastolic murmur, gallop, rubs, systolic murmur - GI/Abdominal GI/Abdominal exam: Present: normal bowel sounds, soft, no peritoneal signs. Absent: distended, tenderness - Extremities Exam Extremities exam: Present: warm, radial pulses palpable and symmetrical. Absent: calf tenderness, cyanotic, pedal edema - Neurological Exam Neurological exam: Present: CN II-XII intact, oriented X3, facial droop, speech deficit. Absent: pronater drift Additional comments: Patient continues with right hemiplegia. Left extremity is 5/5 muscle strength. Continued facial droop with dysarthria. - Skin Skin exam: Present: dry, intact - Constitutional Vitals: Temp Pulse Resp BP Pulse Ox 97.9 F 74 15 150/80 94 09/26/18 08:43 09/26/18 08:43 09/26/18 08:43 09/26/18 08:43 09/26/18 08:43 General appearance: Present: cooperative, A&O X 3, pleasant, no acute distress, answers questions appropriately Internal Medicine: Result - Labs CBC & Chem 7: 09/14/18 05:55 09/14/18 05:55 - ABG Interpretation ABG results: PT/INR, D-dimer PT 23.4 Seconds (9.4-12.1) H D 09/02/18 05:10 Consult Discharge Plan - Plan Referrals: Tiffany Villasenor MD [Primary Care Provider] -
[2018-09-26] MEDS: Melatonin 3 MG TABLET PO PRN (22:07)
[2018-09-26] MEDS: *HR* Rivaroxaban 15 MG TABLET PO SCH (22:07)
[2018-09-26] MEDS: Acetaminophen 325 MG TABLET PO PRN (22:09)
[2018-09-27] MEDS: Metoprolol XL (24 HR) Succ 25 MG TAB.ER.24H PO SCH (09:45)
[2018-09-27] MEDS: amLODIPine 5 MG TABLET PO SCH (09:45)
[2018-09-27] MEDS: Aspirin Enteric Coated 81 MG Tablet PO SCH (09:45)
[2018-09-27] MEDS: Mesalamine 250 MG CAPSULE.ER PO SCH (09:45)
[2018-09-27] MEDS: Lisinopril 20 MG TABLET PO SCH (09:45)
[2018-09-27] MEDS: Furosemide 40 MG TABLET PO SCH (09:45)
[2018-09-27] MEDS: Acetaminophen 325 MG TABLET PO PRN (21:40)
[2018-09-27] MEDS: *HR* Rivaroxaban 15 MG TABLET PO SCH (21:40)
[2018-09-27] MEDS: Melatonin 3 MG TABLET PO PRN (21:41)
[2018-09-28] MEDS: Lisinopril 20 MG TABLET PO SCH (07:53)
[2018-09-28] MEDS: Furosemide 40 MG TABLET PO SCH (07:53)
[2018-09-28] MEDS: Mesalamine 250 MG CAPSULE.ER PO SCH (07:53)
[2018-09-28] MEDS: amLODIPine 5 MG TABLET PO SCH (07:54)
[2018-09-28] MEDS: Metoprolol XL (24 HR) Succ 25 MG TAB.ER.24H PO SCH (07:54)
[2018-09-28] MEDS: Aspirin Enteric Coated 81 MG Tablet PO SCH (07:54)
--- NOTE | 2018-09-28 10:25 | Internal Med Progress Note ---
Date of Encounter: 09/28/18 Time of Encounter: 10:22 - Assessment and plan (1) CVA (cerebral vascular accident) Current Visit: Yes Status: Acute Assessment and plan: No acute issues. Patient's neurological exam has improved with her right hemiparesis. Patient does seem to have a slight increased in strength to the RLE, which is now at 4/5, but continues to have only gross motor movement of his right hand. Patient's distal muscle strength to her hand appears at 3/5. Left extremities at 5/5 muscle strength. We will continue with current therapy. Qualifiers: CVA mechanism: unspecified Qualified Code(s): I63.9 - Cerebral infarction, unspecified (2) HTN (hypertension) Current Visit: Yes Status: Chronic Assessment and plan: No acute issues. Patient's blood pressures remained stable. We will continue with goal of less than 160 systolic. We will continue with current medications Qualifiers: Hypertension type: essential hypertension Qualified Code(s): I10 - Essential (primary) hypertension (3) Diabetes Current Visit: Yes Status: Chronic Assessment and plan: No acute issues. Patient's fingerstick show most readings less than 150. We will continue with current coverage. Qualifiers: Diabetes mellitus type: type 2 Diabetes mellitus detention insulin use: without detention use Diabetes mellitus complication status: with kidney complications Diabetes mellitus complication detail: with chronic kidney disease Chronic kidney disease stage: stage 3 (moderate) Qualified Code(s): E11.22 - Type 2 diabetes mellitus with diabetic chronic kidney disease; N18.3 - Chronic kidney disease, stage 3 (moderate) (4) Ulcerative colitis Current Visit: Yes Status: Chronic Assessment and plan: No acute issues. Patient denies any loose stools or abdominal cramping. Will continue with current plan of care Qualifiers: Ulcerative colitis location: unspecified ulcerative colitis location Digestive disease complication type: unspecified complication Qualified Code(s): K51.919 - Ulcerative colitis, unspecified with unspecified complications (5) Atrial fibrillation Current Visit: Yes Status: Chronic Assessment and plan: No acute issues. Patient's heart rate remains controlled at less than 100. Continue on current medications to include Xarelto. Denies any palpitations or CP Qualifiers: Atrial fibrillation type: paroxysmal Qualified Code(s): I48.0 - Paroxysmal atrial fibrillation - Time Spent With Patient less than 15 minutes - Subjective Interval history: Patient appears relaxed currently denies any discomforts or shortness of breath. Patient continues to progress well with physical therapy and states that she feels her movement to her right extremities has improved. - Constitutional Vitals: Temp Pulse Resp BP Pulse Ox 98.3 F 67 18 137/78 98 09/28/18 07:13 09/28/18 07:13 09/28/18 07:13 09/28/18 07:13 09/28/18 07:13 General appearance: Present: cooperative, A&O X 3, pleasant, no acute distress, answers questions appropriately - Head Head exam: Present: atraumatic, normocephalic - Eye Eye exam: Present: PERRL, conjuntiva pink, sclera anicteric Pupils: Present: PERRL - Neck Neck exam general surgery: Present: supple, trachea midline. Absent: lymphadenopathy - Respiratory Respiratory exam: Present: CTAB. Absent: accessory muscle use, rales, rhonchi, wheezes - Cardiovascular Cardiovascular exam: Present: RRR, +S1, +S2. Absent: diastolic murmur, gallop, rubs, systolic murmur - GI/Abdominal GI/Abdominal exam: Present: normal bowel sounds, soft, no peritoneal signs. Absent: distended, tenderness - Extremities Exam Extremities exam: Present: warm, radial pulses palpable and symmetrical. Absent: calf tenderness, cyanotic, pedal edema - Neurological Exam Neurological exam: Present: CN II-XII intact, oriented X3. Absent: pronater drift, facial droop, speech deficit Additional comments: Continue right hemiparesis with RE 4/5 prox and 3/5 distal. LE 5/5. Fine motor is improving - Skin Skin exam: Present: dry, intact Internal Medicine: Result - Labs CBC & Chem 7: 09/14/18 05:55 09/14/18 05:55 - ABG Interpretation ABG results: PT/INR, D-dimer PT 23.4 Seconds (9.4-12.1) H D 09/02/18 05:10 Consult Discharge Plan - Plan Referrals: Tiffany Villasenor MD [Primary Care Provider] -
--- NOTE | 2018-09-28 16:12 | Internal Med Progress Note ---
Date of Encounter: 09/27/18 Time of Encounter: 17:30 - Subjective Interval history: - Assessment and plan (1) CVA (cerebral vascular accident) Current Visit: Yes Status: Acute Assessment and plan: No acute issues. Denies MOCTEZUMA or new weakness. He does have from CVA dense changes. Exam which shows right hemiplegia. Patient been participating in therapy, but complaint of slight fatigue at times We will continue with current plan of care and medications. Vital signs stable. Qualifiers: CVA mechanism: unspecified Qualified Code(s): I63.9 - Cerebral infarction, unspecified (2) HTN (hypertension) Current Visit: Yes Status: Chronic Assessment and plan: No acute issues. Patient's blood pressures remained stable. We will continue with goal of less than 160 systolic. We will continue with current medications Qualifiers: Hypertension type: essential hypertension Qualified Code(s): I10 - Essential (primary) hypertension (3) Diabetes Current Visit: Yes Status: Chronic Assessment and plan: No acute issues. Patient's fingerstick show most readings less than 150. We will continue with current coverage. Qualifiers: Diabetes mellitus type: type 2 Diabetes mellitus intermediate frame tender insulin use: without intermediate use Diabetes mellitus complication status: with kidney complications Diabetes mellitus complication detail: with chronic kidney disease Chronic kidney disease stage: stage 3 (moderate) Qualified Code(s): E11.22 - Type 2 diabetes mellitus with diabetic chronic kidney disease; N18.3 - Chronic kidney disease, stage 3 (moderate) (4) Ulcerative colitis Current Visit: Yes Status: Chronic Assessment and plan: No acute issues. Patient denies any loose stools or abdominal cramping. no melana Will continue with current plan of care Qualifiers: Ulcerative colitis location: unspecified ulcerative colitis location Digestive disease complication type: unspecified complication Qualified Code(s): K51.919 - Ulcerative colitis, unspecified with unspecified complications (5) Atrial fibrillation Current Visit: Yes Status: Chronic Assessment and plan: No acute issues. Patient's heart rate remains controlled at less than 100. Continue on current medications to include Xarelto Qualifiers: Atrial fibrillation type: paroxysmal Qualified Code(s): I48.0 - Paroxysmal atrial fibrillation (6) CKD (chronic kidney disease) Current Visit: Yes Status: Chronic Assessment and plan: No acute issues. Patient's last creatinine was 1.19. We will continue with current medications and monitor patient's renal status Qualifiers: Chronic kidney disease stage: stage 3 (moderate) Qualified Code(s): N18.3 - Chronic kidney disease, stage 3 (moderate) - Time Spent With Patient less than 15 minutes - Subjective Interval history: Patient states she is feeling slightly stronger encouraged to increase po fluids - EXAM General appearance: Present: alert, pleasant - Head Head exam: Present: atraumatic, normocephalic - Eye Eye exam: Present: PERRL, conjuntiva pink, sclera anicteric Pupils: Present: PERRL - Neck Neck exam general surgery: Present: supple, trachea midline. Absent: lymphadenopathy - Respiratory Respiratory exam: Present: CTAB. Absent: accessory muscle use, rales, rhonchi, wheezes - Cardiovascular Cardiovascular exam: Present: RRR, +S1, +S2. Absent: diastolic murmur, gallop, rubs, systolic murmur - GI/Abdominal GI/Abdominal exam: Present: normal bowel sounds, soft, no peritoneal signs. Absent: distended, tenderness - Extremities Exam Extremities exam: Present: warm, radial pulses palpable and symmetrical. Absent: calf tenderness, cyanotic, pedal edema - Neurological Exam Neurological exam: Present: CN II-XII intact, oriented X3, facial droop, speech deficit. Absent: pronater drift Additional comments: Patient continues with right hemiplegia. Left extremity is 5/5 muscle strength. Continued facial droop with dysarthria. - Skin Skin exam: Present: dry, intact - Constitutional Vitals: Temp Pulse Resp BP Pulse Ox 98.3 F 67 18 137/78 98 09/28/18 07:13 09/28/18 07:13 09/28/18 07:13 09/28/18 07:13 09/28/18 07:13 General appearance: Present: cooperative, A&O X 3, pleasant, no acute distress, answers questions appropriately Internal Medicine: Result - Labs CBC & Chem 7: 09/14/18 05:55 09/14/18 05:55 - ABG Interpretation ABG results: PT/INR, D-dimer PT 23.4 Seconds (9.4-12.1) H D 09/02/18 05:10 Consult Discharge Plan - Plan Referrals: Tiffany Villasenor MD [Primary Care Provider] -
[2018-09-28] MEDS: *HR* Rivaroxaban 15 MG TABLET PO SCH (21:03)
[2018-09-28] MEDS: Acetaminophen 325 MG TABLET PO PRN (21:04)
[2018-09-29] MEDS: Lisinopril 20 MG TABLET PO SCH (07:59)
[2018-09-29] MEDS: Metoprolol XL (24 HR) Succ 25 MG TAB.ER.24H PO SCH (07:59)
[2018-09-29] MEDS: Mesalamine 250 MG CAPSULE.ER PO SCH (07:59)
[2018-09-29] MEDS: Aspirin Enteric Coated 81 MG Tablet PO SCH (07:59)
[2018-09-29] MEDS: Furosemide 40 MG TABLET PO SCH (08:00)
[2018-09-29] MEDS: amLODIPine 5 MG TABLET PO SCH (08:00)
--- NOTE | 2018-09-29 09:48 | Internal Med Progress Note ---
Date of Encounter: 09/29/18 Time of Encounter: 09:46 - Assessment and plan (1) CVA (cerebral vascular accident) Current Visit: Yes Status: Acute Assessment and plan: no new neurological deficits. participating with PT, OT and ST, will follow progress. f/u with neuro as scheduled. Qualifiers: CVA mechanism: unspecified Qualified Code(s): I63.9 - Cerebral infarction, unspecified (2) Diabetes Current Visit: Yes Status: Chronic Assessment and plan: continue fingerstick bloods sugars. continue current medication. controlled. Qualifiers: Diabetes mellitus type: type 2 Diabetes mellitus assisted insulin use: without golf sales associate use Diabetes mellitus complication status: with kidney compl ications Diabetes mellitus complication detail: with chronic kidney disease Chronic kidney disease stage: stage 3 (moderate) Qualified Code(s): E11.22 - Type 2 diabetes mellitus with diabetic chronic kidney disease; N18.3 - Chronic kidney disease, stage 3 (moderate) (3) Hypertension Current Visit: Yes Status: Acute Assessment and plan: controlled with current medication. Monitor blood pressure. Qualifiers: Hypertension type: unspecified secondary hypertension Qualified Code(s): I15.9 - Secondary hypertension, unspecified; I15 - Secondary hypertension (4) Atrial fibrillation Current Visit: Yes Status: Chronic Assessment and plan: rate and rythm controlled. continue xarelto. Qualifiers: Atrial fibrillation type: paroxysmal Qualified Code(s): I48.0 - Paroxysmal atrial fibrillation - Time Spent With Patient less than 15 minutes - Subjective Interval history: participating well with therapy. min assist with therapy transfers. no new neurological deficits. Denies fever, chills, nausea, vomitting or diarrhea. Denies shortness of breath or chest pain. maintaining appetite and hydration. daughter observing and participating in therapy session - Constitutional Vitals: Temp Pulse Resp BP Pulse Ox 98.1 F 74 14 146/78 95 09/29/18 07:58 09/29/18 07:58 09/29/18 07:58 09/29/18 07:58 09/29/18 07:58 General appearance: Present: cooperative, A&O X 3, pleasant, no acute distress, answers questions appropriately - Head Head exam: Present: atraumatic, normocephalic - Eye Eye exam: Present: PERRL, conjuntiva pink, sclera anicteric Pupils: Present: PERRL - Neck Neck exam general surgery: Present: supple, trachea midline. Absent: lymphadenopathy - Respiratory Respiratory exam: Present: CTAB. Absent: accessory muscle use, rales, rhonchi, wheezes - Cardiovascular Cardiovascular exam: Present: irregular rhythm, +S1, +S2. Absent: diastolic murmur, gallop, rubs, systolic murmur - GI/Abdominal GI/Abdominal exam: Present: normal bowel sounds, soft, no peritoneal signs. Absent: distended, tenderness - Extremities Exam Extremities exam: Present: warm, radial pulses palpable and symmetrical. Absent: calf tenderness, cyanotic, pedal edema - Neurological Exam Neurological exam: Present: CN II-XII intact, oriented X3, no focal deficits. Absent: pronater drift, facial droop, speech deficit - Skin Skin exam: Present: dry, intact Internal Medicine: Result - Labs CBC & Chem 7: 09/14/18 05:55 09/14/18 05:55 - ABG Interpretation ABG results: PT/INR, D-dimer PT 23.4 Seconds (9.4-12.1) H D 09/02/18 05:10 Consult Discharge Plan - Plan Referrals: Tiffany Villasenor MD [Primary Care Provider] -
[2018-09-29] MEDS: *HR* Rivaroxaban 15 MG TABLET PO SCH (21:11)
[2018-09-29] MEDS: Acetaminophen 325 MG TABLET PO PRN (21:11)
[2018-09-29] MEDS: Melatonin 3 MG TABLET PO PRN (21:11)
[2018-09-30] MEDS: amLODIPine 5 MG TABLET PO SCH (09:15)
[2018-09-30] MEDS: Furosemide 40 MG TABLET PO SCH (09:15)
[2018-09-30] MEDS: Mesalamine 250 MG CAPSULE.ER PO SCH (09:15)
[2018-09-30] MEDS: Aspirin Enteric Coated 81 MG Tablet PO SCH (09:16)
[2018-09-30] MEDS: Lisinopril 20 MG TABLET PO SCH (09:16)
[2018-09-30] MEDS: Metoprolol XL (24 HR) Succ 25 MG TAB.ER.24H PO SCH (09:17)
[2018-09-30 12:18] LABS: Hematocrit 33.9 % (35.3-44.9); Hemoglobin 10.4 g/dL (11.5-15.4); Mean Corpuscular HGB Conc 30.7 g/dL (31.6-35.5); Mean Corpuscular Hemoglobin 29.5 pg (28.0-33.3); Mean Corpuscular Volume 96.3 fL (83.0-100.0); Platelet Count 285 K/mcL (140-400); Red Blood Count 3.52 M/mcL (3.82-4.97); Red Cell Distribution Width 15.7 % (11.5-14.5)
[2018-09-30 12:28] LABS: Albumin 3.9 g/dL (3.5-5.7); Albumin/Globulin Ratio 1.1 (1.1-2.2); Bilirubin,Total 0.5 mg/dL (0.3-1.0); Calcium 9.2 mg/dL (8.6-10.3); Globulin 3.4 g/dL (2.4-3.5); Potassium 4.4 mEq/L (3.5-5.1); Total Protein 7.3 g/dL (6.4-8.9)
--- NOTE | 2018-09-30 12:54 | Internal Med Progress Note ---
Date of Encounter: 09/30/18 Time of Encounter: 12:52 - Assessment and plan (1) CVA (cerebral vascular accident) Current Visit: Yes Status: Acute Assessment and plan: No acute issues. Patient's neurological exam has improved with her right hemiparesis. Patient does seem to have a slight increased in strength to the RLE, which is now at 4/5, but continues to have only gross motor movement of his right hand. Patient's distal muscle strength to her hand appears at 4/5. Left extremities at 5/5 muscle strength. We will continue with current therapy. Qualifiers: CVA mechanism: unspecified Qualified Code(s): I63.9 - Cerebral infarction, unspecified (2) HTN (hypertension) Current Visit: Yes Status: Chronic Assessment and plan: No acute issues. Patient's blood pressures remained stable. We will continue with goal of less than 160 systolic. We will continue with current medications Qualifiers: Hypertension type: essential hypertension Qualified Code(s): I10 - Essential (primary) hypertension (3) Diabetes Current Visit: Yes Status: Chronic Assessment and plan: No acute issues. Patient's fingerstick show most readings less than 150. We will continue with current coverage. Qualifiers: Diabetes mellitus type: type 2 Diabetes mellitus buttermaker helper insulin use: without [facility] use Diabetes mellitus complication status: with kidney complications Diabetes mellitus complication detail: with chronic kidney disease Chronic kidney disease stage: stage 3 (moderate) Qualified Code(s): E11.22 - Type 2 diabetes mellitus with diabetic chronic kidney disease; N18.3 - Chronic kidney disease, stage 3 (moderate) (4) Atrial fibrillation Current Visit: Yes Status: Chronic Assessment and plan: No acute issues. Patient's heart rate remains controlled at less than 100. Continue on current medications to include Xarelto. Denies any palpitations or CP Qualifiers: Atrial fibrillation type: paroxysmal Qualified Code(s): I48.0 - Paroxysmal atrial fibrillation - Time Spent With Patient less than 15 minutes - Subjective Interval history: Patient appears relaxed currently denies any discomforts or shortness of breath. Patient continues to progress well with physical therapy and states that she feels her movement to her right extremities has improved. Patient has shown some anxiety when discussing her possible discharge this coming Friday. - Constitutional Vitals: Temp Pulse Resp BP Pulse Ox 98.1 F 62 16 137/75 95 09/30/18 07:00 08/07/19 07:00 09/30/18 07:00 09/30/18 07:00 09/30/18 07:00 General appearance: Present: cooperative, A&O X 3, pleasant, no acute distress, answers questions appropriately - Head Head exam: Present: atraumatic, normocephalic - Eye Eye exam: Present: PERRL, conjuntiva pink, sclera anicteric Pupils: Present: PERRL - Neck Neck exam general surgery: Present: supple, trachea midline. Absent: lymphadenopathy - Respiratory Respiratory exam: Present: decreased breath sounds, CTAB. Absent: accessory muscle use, rales, rhonchi, wheezes - Cardiovascular Cardiovascular exam: Present: RRR, +S1, +S2. Absent: diastolic murmur, gallop, rubs, systolic murmur - GI/Abdominal GI/Abdominal exam: Present: normal bowel sounds, soft, no peritoneal signs. Absent: distended, tenderness - Extremities Exam Extremities exam: Present: warm, radial pulses palpable and symmetrical. Absent: calf tenderness, cyanotic, pedal edema - Neurological Exam Neurological exam: Present: CN II-XII intact, oriented X3. Absent: pronater drift, facial droop, speech deficit Additional comments: Right hemiparesis with right extremities at 4/5 muscle strength. Patient noted to have difficulty with fine motor movement to her right hand. Left extremities at 5/5 muscle strength. - Skin Skin exam: Present: dry, intact Internal Medicine: Result - Labs CBC & Chem 7: 09/14/18 05:55 09/30/18 12:08 Labs: BMP 09/30/18 12:08 Sodium 136 Potassium 4.4 Chloride 102 Carbon Dioxide 24 BUN 27 H Creatinine 1.36 H Glucose 111 H Calcium 9.2 Liver Function 09/30/18 Range/Units 12:08 Total Bilirubin 0.5 (0.3-1.0) mg/dL AST 17 (13-39) Units/L ALT 15 (7-52) Units/L Alkaline Phosphatase 91 (34-104) Units/L Albumin 3.9 (3.5-5.7) g/dL - ABG Interpretation ABG results: PT/INR, D-dimer PT 23.4 Seconds (9.4-12.1) H D 09/02/18 05:10 Consult Discharge Plan - Plan Referrals: Tiffany Villasenor MD [Primary Care Provider] -
--- NOTE | 2018-09-30 14:34 | Rehab Psychology Progress Note ---
Date of Encounter: 09/30/18 Time of Encounter: 10:30 Subjective - Patient Report Patient Report: "So confused leaving Friday". Discussed her concerns with pending discharge and how she will manage at home. Doesn't want to be a burden.Discussed "fears". - Symptoms Symptoms: Sighing and perseverating on not being a burden. Objective - WHODAS Functional Impairment Concentration, Problem-solving, Communication: Mild Social Functioning: Mild - Mental Status Mental Status Changes: Aware of need for assistance at home. Discussed communicating with daughter daily any frustrations and daughter doing the same. Processed "new normal" and need to give it time to develop routine and learn strategies - 2 weeks . Rec: write down steps for all transfers etc. and post st home. Discussed why need for 24 hour supervision and daughter expressed understanding - safety. Assessment and Plan - Response to Treatment Response to Treatment: Improved - Prognosis Prognosis: Good - Treatment Plan Treatment Plan Recommendations: Continue Current Plan/Goals Treatment Frequency: weekly Next Session Date: 10/07/18 Procedures - Intervention Interventions: Cognitive/Behavioral Therapy - Modality Modality: Psychotherapy 30 minutes - Participants Therapy Participant: Patient, Family - Session Time Session Start Time: 10:30 Session Stop Time: 11:00
[2018-09-30] MEDS: *HR* Rivaroxaban 15 MG TABLET PO SCH (22:13)
[2018-09-30] MEDS: Acetaminophen 325 MG TABLET PO PRN (22:13)
[2018-09-30] MEDS: Melatonin 3 MG TABLET PO PRN (22:19)
[2018-10-01] MEDS: Mesalamine 250 MG CAPSULE.ER PO SCH (09:11)
[2018-10-01] MEDS: Lisinopril 20 MG TABLET PO SCH (09:11)
[2018-10-01] MEDS: Furosemide 40 MG TABLET PO SCH (09:11)
[2018-10-01] MEDS: Aspirin Enteric Coated 81 MG Tablet PO SCH (09:12)
[2018-10-01] MEDS: Metoprolol XL (24 HR) Succ 25 MG TAB.ER.24H PO SCH (09:12)
[2018-10-01] MEDS: amLODIPine 5 MG TABLET PO SCH (09:12)
--- NOTE | 2018-10-01 11:03 | Internal Med Progress Note ---
Date of Encounter: 10/01/18 Time of Encounter: 10:59 - Assessment and plan (1) CVA (cerebral vascular accident) Current Visit: Yes Status: Acute Assessment and plan: No acute issues. Patient's neurological exam has improved with her right hemiparesis. Patient does seem to have a slight increased in strength to the RLE, which is now at 4/5, but continues to have only gross motor movement of his right hand. Patient's distal muscle strength to her hand appears at 4/5. Left extremities at 5/5 muscle strength. We will continue with current therapy. Qualifiers: CVA mechanism: unspecified Qualified Code(s): I63.9 - Cerebral infarction, unspecified (2) HTN (hypertension) Current Visit: Yes Status: Chronic Assessment and plan: No acute issues. Patient's blood pressures remained stable. We will continue with goal of less than 160 systolic. We will continue with current medications Qualifiers: Hypertension type: essential hypertension Qualified Code(s): I10 - Essential (primary) hypertension (3) Diabetes Current Visit: Yes Status: Chronic Assessment and plan: No acute issues. Patient's fingerstick show most readings less than 150. We will continue with current coverage. Qualifiers: Diabetes mellitus type: type 2 Diabetes mellitus manager long term care insulin use: without fdc use Diabetes mellitus complication status: with kidney complications Diabetes mellitus complication detail: with chronic kidney disease Chronic kidney disease stage: stage 3 (moderate) Qualified Code(s): E11.22 - Type 2 diabetes mellitus with diabetic chronic kidney disease; N18.3 - Chronic kidney disease, stage 3 (moderate) (4) Atrial fibrillation Current Visit: Yes Status: Chronic Assessment and plan: No acute issues. Patient's heart rate remains controlled at less than 100. Continue on current medications to include Xarelto. Denies any palpitations or CP Qualifiers: Atrial fibrillation type: paroxysmal Qualified Code(s): I48.0 - Paroxysmal atrial fibrillation - Time Spent With Patient less than 15 minutes - Subjective Interval history: Patient appears relaxed currently denies any discomforts or shortness of breath. Patient continues to progress well with physical therapy and states that she feels her movement to her right extremities has improved. Patient has shown some anxiety when discussing her possible discharge tomorrow. Patient was seen by psychology yesterday. - Constitutional Vitals: Temp Pulse Resp BP Pulse Ox 98.7 F 80 16 144/79 94 08/08/19 07:00 10/01/18 07:00 10/01/18 07:00 10/01/18 07:00 10/01/18 07:00 General appearance: Present: cooperative, A&O X 3, pleasant, no acute distress, answers questions appropriately - Head Head exam: Present: atraumatic, normocephalic - Eye Eye exam: Present: PERRL, conjuntiva pink, sclera anicteric Pupils: Present: PERRL - Neck Neck exam general surgery: Present: supple, trachea midline. Absent: lymphadenopathy - Respiratory Respiratory exam: Present: decreased breath sounds, CTAB. Absent: accessory muscle use, rales, rhonchi, wheezes - Cardiovascular Cardiovascular exam: Present: RRR, +S1, +S2. Absent: diastolic murmur, gallop, rubs, systolic murmur - GI/Abdominal GI/Abdominal exam: Present: normal bowel sounds, soft, no peritoneal signs. Absent: distended, tenderness - Extremities Exam Extremities exam: Present: warm, radial pulses palpable and symmetrical. Abse nt: calf tenderness, cyanotic, pedal edema - Neurological Exam Neurological exam: Present: CN II-XII intact, oriented X3. Absent: pronater drift, facial droop, speech deficit Additional comments: Patient continues with right hemiparesis with her right upper extremity at 4/5 muscle strength, but noted 3+/5 muscle strength distally to her right hand. Patient continues with poor fine motor movement of right hand. Right lower extremity at 4/5. Left extremities at 5/5. - Psychiatric Psychiatric exam: Present: anxious Additional comments: Patient noted to continue to have anxiety when discussing her possible discharge tomorrow. Patient with mild dementia - Skin Skin exam: Present: dry, intact Internal Medicine: Result - Labs CBC & Chem 7: 09/30/18 12:08 09/30/18 12:08 Labs: Short CBC 09/30/18 Range/Units 12:08 WBC 6.0 (4.3-11.1) K/mcL Hgb 10.4 L (11.5-15.4) g/dL Hct 33.9 L (35.3-44.9) % Plt Count 285 (140-400) K/mcL BMP 09/30/18 12:08 Sodium 136 Potassium 4.4 Chloride 102 Carbon Dioxide 24 BUN 27 H Creatinine 1.36 H Glucose 111 H Calcium 9.2 Liver Function 09/30/18 Range/Units 12:08 Total Bilirubin 0.5 (0.3-1.0) mg/dL AST 17 (13-39) Units/L ALT 15 (7-52) Units/L Alkaline Phosphatase 91 (34-104) Units/L Albumin 3.9 (3.5-5.7) g/dL - ABG Interpretation ABG results: PT/INR, D-dimer PT 23.4 Seconds (9.4-12.1) H D 09/02/18 05:10 Consult Discharge Plan - Plan Referrals: Tiffany Villasenor MD [Primary Care Provider] -
[2018-10-01] MEDS: *HR* Rivaroxaban 15 MG TABLET PO SCH (20:50)
[2018-10-01] MEDS: Acetaminophen 325 MG TABLET PO PRN (20:50)
[2018-10-01] MEDS: Melatonin 3 MG TABLET PO PRN (20:51)
[2018-10-02] MEDS: Lisinopril 20 MG TABLET PO SCH (07:47)
[2018-10-02] MEDS: Furosemide 40 MG TABLET PO SCH (07:48)
[2018-10-02] MEDS: Mesalamine 250 MG CAPSULE.ER PO SCH (07:48)
[2018-10-02] MEDS: Metoprolol XL (24 HR) Succ 25 MG TAB.ER.24H PO SCH (07:48)
[2018-10-02] MEDS: Aspirin Enteric Coated 81 MG Tablet PO SCH (07:49)
[2018-10-02] MEDS: amLODIPine 5 MG TABLET PO SCH (07:54)
--- NOTE | 2018-10-02 10:00 | Physician Discharge Referral ---
Home Health/Hosp Referral Info Transfer to: Home Health Provider in Charge Post Discharge: PCP - Diagnosis (1) CVA (cerebral vascular accident) Priority: Primary Status: Acute (2) HTN (hypertension) Priority: Secondary Status: Chronic (3) Diabetes Priority: Secondary Status: Chronic (4) Atrial fibrillation Priority: Secondary Status: Chronic - Respiratory Orders Smoking Cessation: Smoking cessation has been advised. For more information, call the [place] Tobacco Quit Line at 5-734-IHYM-NOW. - Diet/Nutrition Diet/Nutrition Orders: Mechanical Soft, No Added Salt (SHEFALI), Cardiac - Activity Activity Orders: Up ad osei, Chair, Walker - Services Needed Following services are medically necessary services: Nursing, Home Health Aide, Physical Therapy, Occupational Therapy - Transfer Medications Home Medications: Acetaminophen [Tylenol] 1,000 mg PO 1-2XD PRN 03/10/15 [History] Furosemide [Lasix] 40 mg PO QAM 03/10/15 [History] Mesalamine [Apriso] 0.75 gm PO QAM 03/10/15 [History] Omeprazole [PriLOSEC] 20 mg PO QAM 03/10/15 [History] Potassium Chloride [K-Tab ER] 20 meq PO DAILY 11/28/15 [History] Metoprolol Succinate 25 mg PO QAM 01/24/17 [History] Aspirin Enteric Coated [Aspirin EC] 81 mg PO QAM 08/28/18 [History] Lisinopril [Zestril] 40 mg PO QAM 08/28/18 [History] Rivaroxaban [Xarelto] 20 mg PO 1700 08/28/18 [History] Atorvastatin [Lipitor] 80 mg PO HS 30 Days #30 tablet 09/01/18 [Rx] Paroxetine [Paxil] 10 mg PO DAILY #30 tablet 09/01/18 [Rx] amLODIPine [Norvasc] 5 mg PO DAILY #30 tablet 09/01/18 [Rx] Allergies/Adverse Reactions: Allergy/AdvReac Type Severity Reaction Status Date / Time ampicillin Allergy Hives Verified 08/28/18 10:05 morphine AdvReac Hallucinati Verified 08/28/18 10:05 ng nitrofurantoin AdvReac Gastrointestinal Verified 09/18/18 09:26 [From Macrobid] Upset Certification: Further, I certify that my clinical findings support that this patient is homebound (i.e. absences from home require considerable and taxing effort and are for medical reasons or scientology services or infrequently or short duration when for other reasons) because: Homebound Reason: Leaving home requires considerable and taxing effort due to condition Attestation: My signature below is to certify that this patient is under my care and that I, or nurse practitioner, or a physician's print shop assistant working with me, has a [id number] encounter with this patient.
[2018-10-02 10:05] VITALS: BP 168/97
--- NOTE | 2018-10-02 10:32 | Event Note ---
Date of Encounter: 10/02/18 Time of Encounter: 10:24 Patient continues with right hemiparesis with her right extremities have 4/5 muscle strength and continues to have moderate generalized weakness due to her deconditioning. Patient also has had difficulty utilizing a walker due to her distal right upper extremity muscle strength at 3/5. Patient has progressed well with therapy and currently is able to transfer well from bed to wheelchair. Patient remains a fall risk due to her right hemiparesis and is recommended to use a wheelchair to allow her more independence and avoid any possible fall with injury. Patient will require to assistance of a standard wheelchair to successfully complete daily living task of colon toileting, feeding, bathing, dressing and grooming, or any other daily living task in the home. The standard wheelchair as necessary due to the patient's impaired ambulation and mobility restrictions and would be unable to resolve these daily living task using a cane or walker. As mentioned, patient currently has difficulty utilizing a walker due to her poor balance and severe weakness to her right upper extremity. The patient is capable of using a standard wheelchair safely in her home and can maneuver within the home with adequate access. There is a caregiver available to provide assistance. The patient has not expressed unwillingness to use the wheelchair Also, the patient is incapable utilizing regular facilities and would be mostly confined to a single room or to level of her home due to her poor mobility and unsteady gait. Patient is recommended to use a bedside commode to avoid any possible fall or injury. Patient also reportedly continues to have poor endurance when attempting to stand for any length of time and would be recommended to have a shower chair to provide her with independence and to reduce her risk of fall of injury while bathing.
--- NOTE | 2018-10-02 10:44 | Discharge Summary ---
Date of Encounter: 10/02/18 Time of Encounter: 10:42 - Discharge Diagnosis (1) CVA (cerebral vascular accident) Priority: Primary Status: Acute Comments: Patient experienced a left CVA resulting in right hemiparesis. Patient's strength has increased to her right extremities but continues to have a 4/5 muscle strength to both the arm and leg. To the right upper arm patient does have increased weakness distally with her right hand showing a 3/5 muscle strength. Left extremities remain at 5/5. Patient has progressed well with her strength and physical therapy. Patient will continue her therapy through home health services after discharge. Patient is to continue with her current medications and is to follow-up with her PCP and neurologist after discharge. Patient's systolic blood pressure goal is to maintain a blood pressure less than 160. Qualifiers: CVA mechanism: unspecified Qualified Code(s): I63.9 - Cerebral infarction, unspecified (2) HTN (hypertension) Priority: Secondary Status: Chronic Comments: No issues noted during her stay of facility. Patient's blood pressure goal is to maintain systolic blood pressure less than 160. Patient will be discharged with current medications and is to follow-up with her PCP for further management. Qualifiers: Hypertension type: essential hypertension Qualified Code(s): I10 - Essential (primary) hypertension (3) Diabetes Priority: Secondary Status: Chronic Comments: No issues during her stay. Patient's glucose was well managed and she maintain a glucose of less than 150 on most fingersticks. She will continue with her current home medications and follow-up with PCP for further management Qualifiers: Diabetes mellitus type: type 2 Diabetes mellitus intermediate accountant insulin use: without long-term use Diabetes mellitus complication status: with kidney complications Diabetes mellitus complication detail: with chronic kidney disease Chronic kidney disease stage: stage 3 (moderate) Qualified Code(s): E11.22 - Type 2 diabetes mellitus with diabetic chronic kidney disease; N18.3 - Chronic kidney disease, stage 3 (moderate) (4) Atrial fibrillation Priority: Secondary Status: Chronic Comments: Patient continues with atrial fibrillation with her ventricular rate remained controlled less than 100. Patient will continue with current anticoagulation and medications after discharge and follow-up with her PCP and aviation medicine specialist for further management Qualifiers: Atrial fibrillation type: paroxysmal Qualified Code(s): I48.0 - Paroxysmal atrial fibrillation Hospital course: Ms. Edwards is a 83 year old female, who was transferred to this facility from [facility] after being treated for an acute left CVA resulting in right hemiplegia and dysarthria. Patient was admitted at [facility] on 08/26/18 due to weakness to her right extremities and was also found to be very hypertensive with a systolic greater than 190. Patient had a medical history of atrial fibrillation and was on Xarelto at time of admission. Also history of hypertension, diabetes, CKD and ulcerative colitis. Patient's recovery at Hospital was uneventful and she was eventually transferred to this facility for further rehabilitation due to her hemiplegia and generalized weakness. Patient currently appears relaxed and denies any acute issues. She continues with her right hemiplegia and noted mild dysarthria. Patient denies any difficulty with swallow. Denies any discomforts or shortness of breath. Patient has progressed well during her stay at facility. Patient continues to show progress with a return in muscle strength to her right extremities, but she continues to have a 4/5 muscle strength right extremities. Patient continues to show increased weakness to her right distal arm which is at 3/5. Left extremities at 5/5. Patient remains a fall risk due to her unsteady gait secondary to her hemiparesis. She will continue with her therapy to home health services. Patient's glucose has been well managed during her stay with her fingerstick showing readings less than 150. Patient had no issues with her history of colitis during her stay. Blood pressure was we will manage with a goal of maintaining systolic less than 160. Patient is to follow-up with her PCP and neurology for further evaluation and treatment. Patient is being provided prescriptions for her Xarelto, clonidine, Pentasa, and modafinil. Discharge discussed with: patient Time spent discussing smoking cessation with patient: 3 to 10 minutes - Time Spent with Patient Total time spent providing and/or coordinating discharge services: Time spent: Less than 30 minutes - Discharge Medications Prescriptions: No Action Mesalamine [Apriso] 0.75 gm PO QAM Omeprazole [PriLOSEC] 20 mg PO QAM Furosemide [Lasix] 40 mg PO QAM Acetaminophen [Tylenol] 1,000 mg PO 1-2XD PRN PRN Reason: Pain Potassium Chloride [K-Tab ER] 20 meq PO DAILY Metoprolol Succinate 25 mg PO QAM Aspirin Enteric Coated [Aspirin EC] 81 mg PO QAM Lisinopril [Zestril] 40 mg PO QAM Rivaroxaban [Xarelto] 20 mg PO 1700 Atorvastatin [Lipitor] 80 mg PO HS 30 Days #30 tablet amLODIPine [Norvasc] 5 mg PO DAILY #30 tablet Paroxetine [Paxil] 10 mg PO DAILY #30 tablet Home Medications: Acetaminophen [Tylenol] 1,000 mg PO 1-2XD PRN 03/10/15 [History] Furosemide [Lasix] 40 mg PO QAM 03/10/15 [History] Mesalamine [Apriso] 0.75 gm PO QAM 03/10/15 [History] Omeprazole [PriLOSEC] 20 mg PO QAM 03/10/15 [History] Potassium Chloride [K-Tab ER] 20 meq PO DAILY 11/28/15 [History] Metoprolol Succinate 25 mg PO QAM 01/24/17 [History] Aspirin Enteric Coated [Aspirin EC] 81 mg PO QAM 08/28/18 [History] Lisinopril [Zestril] 40 mg PO QAM 08/28/18 [History] Rivaroxaban [Xarelto] 20 mg PO 1700 08/28/18 [History] Atorvastatin [Lipitor] 80 mg PO HS 30 Days #30 tablet 09/01/18 [Rx] Paroxetine [Paxil] 10 mg PO DAILY #30 tablet 09/01/18 [Rx] amLODIPine [Norvasc] 5 mg PO DAILY #30 tablet 09/01/18 [Rx] Allergies/Adverse Reactions: Allergy/AdvReac Type Severity Reaction Status Date / Time ampicillin Allergy Hives Verified 08/28/18 10:05 morphine AdvReac Hallucinati Verified 08/28/18 10:05 ng nitrofurantoin AdvReac Gastrointestinal Verified 09/18/18 09:26 [From Macrobid] Upset Date of admission: 09/01/18 15:41 Primary care physician: Tiffany Villasenor Consults: 09/01/18 17:53 Consult to Occupational Therapy [CONS] Routine Comment: Evaluate, develop and implement POC Reason for Consult: weakness Does patient have active BEDREST order?: No Is patient medically & hemodynamically stable?: Yes Consult to Physical Therapy [CONS] Routine Comment: Evaluate, develop and implement POC Reason for Consult: weakness Does patient have active BEDREST order?: No Is patient medically & hemodynamically stable?: Yes Consult to Recreational Therapy [CONS] Routine Comment: Evaluate, develop and implement POC Consult to Geospatial Engineer [CONS] Routine Reason for SW Consult: discharge planning Consult to Speech Therapy [CONS] Routine Comment: Evaluate, develop and implement POC Reason for Consult: speech impairment Call Completed: Yes 09/02/18 09:01 Consult to Psychology [CONS] Routine Consulting Provider: Adelia Nichole Reason for Consult: Possible depression; adjustment disorder Call Completed: No 09/14/18 10:17 Consult to Physical Medicine/Rehab [CONS] Routine Reason for Consult: Please evaluate and manage therapies' guidelines and recommend pathway to reconditioning. Time Notified: 10:17 Call Completed: Yes Discharging clinician: Alvin Delatorre - Constitutional Vitals: Temp Pulse Resp BP Pulse Ox 98.2 F 78 15 168/97 92 10/02/18 10:04 10/02/18 10:04 10/02/18 10:04 10/02/18 10:04 10/02/18 10:04 General appearance: Present: cooperative, A&O X 3, pleasant, no acute distress, answers questions appropriately - Head Head exam: Present: atraumatic, normocephalic - Eye Eye exam: Present: PERRL, conjuntiva pink, sclera anicteric Pupils: Present: PERRL - Neck Neck exam general surgery: Present: supple, trachea midline. Absent: lymphadenopathy - Respiratory Respiratory exam: Present: decreased breath sounds, CTAB. Absent: accessory muscle use, rales, rhonchi, wheezes - Cardiovascular Cardiovascular exam: Present: RRR, +S1, +S2. Absent: diastolic murmur, gallop, rubs, systolic murmur - GI/Abdominal GI/Abdominal exam: Present: normal bowel sounds, soft, no peritoneal signs. Absent: distended, tenderness - Extremities Exam Extremities exam: Present: warm, radial pulses palpable and symmetrical. Absent: calf tenderness, cyanotic, pedal edema - Neurological Exam Neurological exam: Present: CN II-XII intact, oriented X3. Absent: pronater drift, facial droop, speech deficit Additional comments: Patient continues to show right hemiparesis with right extremities have 4/5 muscle strength, except for her distal right arm which is at 3/5. Left extremities at 5/5 muscle strength. - Skin Skin exam: Present: dry, intact - Patient Status Disposition: Home Health Service Condition: Good Functional capacity at discharge: wheelchair bound Overall status at discharge: patient is progressing back to baseline - Discharge Instructions Follow Up With: Tiffany Villasenor MD [Primary Care Provider] - - Diet and Activity Activity: as per physical therapy, increase activity as tolerated Diet: diabetic diet, low fat, low cholesterol, low salt diet
== END 2018-10-02 14:45 | disposition home health service (06) | DRG 57 ==
LOC: INPGRE 15:41

== ENCOUNTER 2018-11-17 12:46 | Observation (INO) ==
[2018-11-17] MEDS ORDERED: Acetaminophen 325 MG TABLET PO PRN (14:24)
[2018-11-17] MEDS ORDERED: cloNIDine HCl 0.1 MG TABLET PO PRN (14:26)
[2018-11-17] MEDS ORDERED: 0.9 % Sodium Chloride 1,000 ML IVC SCH (14:30)
[2018-11-17] MEDS ORDERED: *HR* Rivaroxaban 15 MG TABLET PO SCH (17:00)
[2018-11-17] MEDS: Lactobacillus 1 EACH CAP.SPRINK PO SCH (20:55)
[2018-11-18] MEDS ORDERED: Furosemide 20 MG TABLET PO SCH (09:00)
[2018-11-18] MEDS ORDERED: Metoprolol XL (24 HR) Succ 25 MG TAB.ER.24H PO SCH (09:00)
[2018-11-18] MEDS ORDERED: Aspirin 81 MG TAB.CHEW PO SCH (09:00)
[2018-11-18] MEDS: Lactobacillus 1 EACH CAP.SPRINK PO SCH (09:57)
--- NOTE | 2018-11-18 10:33 | Internal Med History&Physical ---
Date of Encounter: 11/18/18 Time of Encounter: 10:31 Assessment and Plan (1) Altered mental status Current visit: Yes Status: Acute Improving. Monitor. CT head negative. Qualifiers: Altered mental status type: unspecified Qualified Code(s): R41.82 - Altered mental status, unspecified (2) HTN (hypertension) Current visit: Yes Status: Chronic Controlled with current medication. Monitor blood pressure. Qualifiers: Hypertension type: essential hypertension Qualified Code(s): I10 - Essential (primary) hypertension (3) Diabetes Current visit: Yes Status: Chronic Controlled with current medication. Monitor fingerstick blood sugar. Qualifiers: Diabetes mellitus type: type 2 Diabetes mellitus longterm insulin use: without moth exterminator use Diabetes mellitus complication status: with kidney complications Diabetes mellitus complication detail: with chronic kidney disease Chronic kidney disease stage: stage 3 (moderate) Qualified Code(s): E11.22 - Type 2 diabetes mellitus with diabetic chronic kidney disease; N18.3 - Chronic kidney disease, stage 3 (moderate) (4) Atrial fibrillation Current visit: Yes Status: Chronic Rate and rhythm stable. Continue current medication. Qualifiers: Atrial fibrillation type: paroxysmal Qualified Code(s): I48.0 - Paroxysmal atrial fibrillation (5) CVA (cerebral vascular accident) Current visit: Yes Status: Chronic No new neurological deficits. Monitor. Wheelchair for mobility. Qualifiers: CVA mechanism: unspecified Qualified Code(s): I63.9 - Cerebral infarction, unspecified (6) Fracture, intertrochanteric, right femur Current visit: Yes Status: Acute Continue PT and OT. Will follow progress. Pain controlled with current medication. Qualifiers: Encounter type: sequela Fracture type: closed Fracture alignment: displaced Qualified Code(s): S72.141S - Displaced intertrochanteric fracture of right femur, sequela Internal Medicine - H&P: HPI Admitted From: Intrahospital Transfer Plans for Post Hospital Care: Transfer [facility] Facility History of present illness: Ms. Edwards is a 83 year old female transferred from [facility] bed to medical observation after having an nonresponsive episode. During this episode patient was able to track with eyes but not respond. CT scan was negative for any acute problems. Stroke alert was called and [facility] neurology telehealth performed a normal exam. Patient is to have an MRA. Has history of recent CVA this summer. Fell at home and fractured right hip which underwent surgical repair. Has been making slow progress with therapy. Currently resting in bed, denies fever, chills, nausea vomiting or diarrhea. Denies shortness of breath or chest pain. Maintaining appetite and hydration. Past Med Surg Social Fam HX - Past Medical History Medical history: atrial fibrillation, CHF, CVA, diabetes, GERD, hypertension, renal disease, TIA, other Additional medical history: UC Psychiatric history: anxiety - Past Surgical History Surgical History: appendectomy, hysterectomy, CHEVY/BSO Additional surgical history: left toe removed, Tonsils removed - Social History Smoking Status: Never smoker Smokeless Tobacco Status: No Alcohol use: none Drug use: none - Family History Mother Adopted: No Living Status: Hx Family Cardiac Disorders: Yes Hx Family Respiratory Disorders: No Hx Family Cancer: No Hx Family GI Disorders: No Hx Family Endocrine Disorder: Yes Hx Family Neuromuscular Disorders: No Hx Family Neurologic Disorders: No Hx Family HEENT Disorders: No Hx Family Autoimmune Disorders: No Father Adopted: No Living Status: Hx Family Cardiac Disorders: Yes Hx Family Respiratory Disorders: No Hx Family Cancer: No Hx Family GI Disorders: No Hx Family Endocrine Disorder: No Hx Family Neuromuscular Disorders: No Hx Family Neurologic Disorders: No Hx Family HEENT Disorders: No Hx Family Autoimmune Disorders: No Internal Medicine - H&P: Meds Furosemide [Lasix] 40 mg PO DAILY 03/10/15 [History] Mesalamine [Apriso] 0.75 gm PO DAILY 03/10/15 [History] Omeprazole [PriLOSEC] 20 mg PO DAILY 03/10/15 [History] Potassium Chloride [K-Tab ER] 20 meq PO DAILY 11/28/15 [History] Metoprolol Succinate 25 mg PO DAILY 01/24/17 [History] Aspirin Enteric Coated [Aspirin EC] 81 mg PO QAM 08/28/18 [History] Lisinopril [Zestril] 40 mg PO DAILY 08/28/18 [History] Atorvastatin [Lipitor] 80 mg PO HS 30 Days #30 tablet 09/01/18 [Rx] amLODIPine [Norvasc] 5 mg PO DAILY #30 tablet 09/01/18 [Rx] Rivaroxaban [Xarelto] 15 mg PO 1700 #30 tablet 10/02/18 [Rx] Paroxetine [Paxil] 20 mg PO DAILY 10/26/18 [History] Acetaminophen [Tylenol] 650 mg PO Q6HR PRN 1 Days #8 tablet 10/30/18 [Rx] Ciprofloxacin HCl [Cipro] 250 mg PO BID 7 Days #14 tab 10/30/18 [Rx] Allergy/AdvReac Type Severity Reaction Status Date / Time ampicillin Allergy Hives Verified 08/28/18 10:05 morphine AdvReac Hallucinati Verified 08/28/18 10:05 ng nitrofurantoin AdvReac Gastrointestinal Verified 09/18/18 09:26 [From Macrobid] Upset All Systems PM: A 10-system review of systems was performed and is negative for pertinent findings except as documented above in the HPI. - Constitutional Constitutional: no chills, no fever(s), no night sweats - EENT Eyes: no change in vision, no discharge, no pain, no photophobia Ears: no ear discharge, no ear pain, no tinnitus Nose, mouth and throat: no dysphagia, no nasal discharge, no neck pain, no sore throat - Cardiovascular Cardiovascular ROS IM: no chest pain, no diaphoresis, no dyspnea, no lightheadedness, no palpitations, no syncope - Respiratory Respiratory: no cough, no dyspnea, no wheezing, no excessive phlegm production - Gastrointestinal Gastrointestinal: no abdominal pain, no diarrhea, no hematemesis, no hematochezi a, no melena, no nausea, no vomiting - Genitourinary Genitourinary: no change in urinary stream, no dysuria, no flank pain, no hematuria - Musculoskeletal Musculoskeletal ROS IM: no numbness, no tingling - Integumentary Integumentary IM: no rash, no unusual bruising - Neurological Neurological ROS: no confusion, no convulsions, no focal weakness, no numbness, no tingling, no tremor(s) - Hematologic/Lymphatic Hematologic/Lymphatic: no easy bruising - Constitutional Vitals: Temp Pulse Resp BP Pulse Ox 98.0 F 83 15 166/96 96 11/18/18 07:05 11/18/18 07:05 11/18/18 07:05 11/18/18 07:05 11/18/18 07:05 General appearance: Present: cooperative, A&O X 3, pleasant, no acute distress, obese, answers questions appropriately - Head Head exam: Present: atraumatic, normocephalic - Eye Eye exam: Present: PERRL, conjuntiva pink, sclera anicteric Pupils: Present: PERRL - Neck Neck exam general surgery: Present: supple, trachea midline. Absent: lymphadenopathy - Respiratory Respiratory exam: Present: CTAB. Absent: accessory muscle use, rales, rhonchi, wheezes - Cardiovascular Cardiovascular exam: Present: RRR, +S1, +S2. Absent: diastolic murmur, gallop, rubs, systolic murmur - GI/Abdominal GI/Abdominal exam: Present: normal bowel sounds, soft, no peritoneal signs. Absent: distended, tenderness - Extremities Exam Extremities exam: Present: warm, radial pulses palpable and symmetrical. Absent: calf tenderness, cyanotic, pedal edema - Incison Comments: Right hip incision dressing dry and intact - Neurological Exam Neurological exam: Present: CN II-XII intact, oriented X3, no focal deficits. Absent: pronater drift, facial droop, speech deficit - Skin Skin exam: Present: dry, intact
--- NOTE | 2018-11-18 10:39 | Physician Discharge Referral ---
ExtendedCare Referral Info Provider in Charge after Transfer: PCP Institutional Level of Care: Skilled - Diagnosis (1) Altered mental status Priority: Primary Status: Acute (2) HTN (hypertension) Priority: Secondary Status: Chronic (3) Diabetes Priority: Secondary Status: Chronic (4) Atrial fibrillation Priority: Secondary Status: Chronic (5) CVA (cerebral vascular accident) Priority: Secondary Status: Chronic (6) Fracture, intertrochanteric, right femur Priority: Primary Status: Acute Prognosis: Fair Aware of Diagnosis: Patient, Family Aware of Prognosis: Patient, Family - Transfer Medications Home Medications: Furosemide [Lasix] 40 mg PO DAILY 03/10/15 [History] Mesalamine [Apriso] 0.75 gm PO DAILY 03/10/15 [History] Omeprazole [PriLOSEC] 20 mg PO DAILY 03/10/15 [History] Potassium Chloride [K-Tab ER] 20 meq PO DAILY 11/28/15 [History] Metoprolol Succinate 25 mg PO DAILY 01/24/17 [History] Aspirin Enteric Coated [Aspirin EC] 81 mg PO QAM 08/28/18 [History] Lisinopril [Zestril] 40 mg PO DAILY 08/28/18 [History] Atorvastatin [Lipitor] 80 mg PO HS 30 Days #30 tablet 09/01/18 [Rx] amLODIPine [Norvasc] 5 mg PO DAILY #30 tablet 09/01/18 [Rx] Rivaroxaban [Xarelto] 15 mg PO 1700 #30 tablet 10/02/18 [Rx] Paroxetine [Paxil] 20 mg PO DAILY 10/26/18 [History] Acetaminophen [Tylenol] 650 mg PO Q6HR PRN 1 Days #8 tablet 10/30/18 [Rx] Ciprofloxacin HCl [Cipro] 250 mg PO BID 7 Days #14 tab 10/30/18 [Rx] Allergies/Adverse Reactions: Allergy/AdvReac Type Severity Reaction Status Date / Time ampicillin Allergy Hives Verified 08/28/18 10:05 morphine AdvReac Hallucinati Verified 08/28/18 10:05 ng nitrofurantoin AdvReac Gastrointestinal Verified 09/18/18 09:26 [From Macrobid] Upset - Respiratory Orders Smoking Cessation: Smoking cessation has been advised. For more information, call the [place] Tobacco Quit Line at 7-966-FRLT-NOW. - Advance Directives Code Status: Full Code - Mobility Orders Chair - Rehabiliation Orders Rehab Potential: Fair Rehab Orders: Evaluation for Physical Therapy, Evaluation for Occupational Therapy - Diet Orders No Concentrated Sweets CERTIFICATION: I certify that the transfer of the above named patient to an Extended Care Facility is necessary for the continuing treatment of the diagnosis listed. The above information is true and accurate reflection of patient's current condition. Confidential - Redisclosure prohibited without a patient's written consent.
--- NOTE | 2018-11-18 10:41 | Discharge Summary ---
Date of Encounter: 11/18/18 Time of Encounter: 10:39 - Discharge Diagnosis (1) Altered mental status Priority: Primary Status: Acute Comments: Stable. Improved today. Qualifiers: Altered mental status type: unspecified Qualified Code(s): R41.82 - Altered mental status, unspecified (2) HTN (hypertension) Priority: Secondary Status: Chronic Comments: Controlled with current medication. Monitor blood pressure. Qualifiers: Hypertension type: essential hypertension Qualified Code(s): I10 - Essential (primary) hypertension (3) Diabetes Priority: Secondary Status: Chronic Comments: Controlled with current medication. Monitor fingerstick blood sugar. Qualifiers: Diabetes mellitus type: type 2 Diabetes mellitus shelter insulin use: without ferry terminal supervisor use Diabetes mellitus complication status: with kidney complications Diabetes mellitus complication detail: with chronic kidney disease Chronic kidney disease stage: stage 3 (moderate) Qualified Code(s): E11.22 - Type 2 diabetes mellitus with diabetic chronic kidney disease; N18.3 - Chronic kidney disease, stage 3 (moderate) (4) Atrial fibrillation Priority: Secondary Status: Chronic Comments: Rhythm stable. Continue current medication. Qualifiers: Atrial fibrillation type: paroxysmal Qualified Code(s): I48.0 - Paroxysmal atrial fibrillation (5) CVA (cerebral vascular accident) Priority: Secondary Status: Chronic Comments: No new neurological deficits. Continue to monitor. Wheelchair for mobility. Qualifiers: CVA mechanism: unspecified Qualified Code(s): I63.9 - Cerebral infarction, unspecified (6) Fracture, intertrochanteric, right femur Priority: Primary Status: Acute Comments: Follow up with ortho as scheduled. Pain controlled with current medication. Continue PT and OT. Qualifiers: Encounter type: sequela Fracture type: closed Fracture alignment: displaced Qualified Code(s): S72.141S - Displaced intertrochanteric fracture of right femur, sequela Hospital course: Ms. Edwards is a 83 year old female discharging to [facility], signature. transferred from [facility] bed to medical observation yesterday, after having an nonresponsive episode. During this episode patient was able to track with eyes but not respond. CT scan was negative for any acute problems. Stroke alert was called and [facility] neurology telehealth performed a normal exam. Patient is to have an MRA. Has history of recent CVA this summer. Fell at home and fractured right hip which underwent surgical repair. Has been making slow progress with therapy. Currently resting in bed, denies fever, chills, nausea vomiting or diarrhea. Denies shortness of breath or chest pain. Maintaining appetite and hydration. Discharge discussed with: patient, family, nurse, social work - Time Spent with Patient Total time spent providing and/or coordinating discharge services: Time spent: Less than 30 minutes - Discharge Medications Prescriptions: No Action Mesalamine [Apriso] 0.75 gm PO DAILY Omeprazole [PriLOSEC] 20 mg PO DAILY Furosemide [Lasix] 40 mg PO DAILY Potassium Chloride [K-Tab ER] 20 meq PO DAILY Metoprolol Succinate 25 mg PO DAILY Aspirin Enteric Coated [Aspirin EC] 81 mg PO QAM Lisinopril [Zestril] 40 mg PO DAILY Atorvastatin [Lipitor] 80 mg PO HS 30 Days #30 tablet amLODIPine [Norvasc] 5 mg PO DAILY #30 tablet Paroxetine [Paxil] 20 mg PO DAILY Acetaminophen [Tylenol] 650 mg PO Q6HR PRN 1 Days #8 tablet PRN Reason: Moderate Pain Ciprofloxacin HCl [Cipro] 250 mg PO BID 7 Days #14 tab Rivaroxaban [Xarelto] 15 mg PO 1700 #30 tablet Home Medications: Omeprazole [PriLOSEC] 20 mg PO DAILY 03/10/15 [History] Potassium Chloride [K-Tab ER] 20 meq PO DAILY 11/28/15 [History] Metoprolol Succinate 25 mg PO DAILY 01/24/17 [History] Aspirin Enteric Coated [Aspirin EC] 81 mg PO QAM 08/28/18 [History] Atorvastatin [Lipitor] 80 mg PO HS 30 Days #30 tablet 09/01/18 [Rx] Rivaroxaban [Xarelto] 15 mg PO 1700 #30 tablet 10/02/18 [Rx] Acetaminophen [Tylenol] 650 mg PO Q6HR PRN 1 Days #8 tablet 10/30/18 [Rx] Furosemide [Lasix] 20 mg PO DAILY tablet 11/18/18 [Rx] Lactobacillus [Culturelle] 1 each PO BID cap.sprink 11/18/18 [Rx] Lidocaine Patch [Lidoderm 5% patch] 1 each TP DAILY adh..patch 11/18/18 [Rx] Paroxetine [Paxil] 10 mg PO DAILY tablet 11/18/18 [Rx] amLODIPine [Norvasc] 5 mg PO HS tablet 11/18/18 [Rx] Allergies/Adverse Reactions: Allergy/AdvReac Type Severity Reaction Status Date / Time ampicillin Allergy Hives Verified 08/28/18 10:05 morphine AdvReac Hallucinati Verified 08/28/18 10:05 ng nitrofurantoin AdvReac Gastrointestinal Verified 09/18/18 09:26 [From Macrobid] Upset Date of admission: 11/17/18 14:51 Primary care physician: Tiffany Villasenor Consults: 11/17/18 14:33 Consult to Developer Architect [CONS] Routine Reason for SW Consult: Please evaluate for discharge planning Discharging clinician: Alvin Delatorre Anticipated date of discharge: 11/18/18 - Constitutional Vitals: Temp Pulse Resp BP Pulse Ox 98.0 F 83 15 166/96 96 11/18/18 07:05 11/18/18 07:05 11/18/18 07:05 11/18/18 07:05 11/18/18 07:05 General appearance: Present: cooperative, A&O X 3, pleasant, no acute distress, obese, answers questions appropriately - Head Head exam: Present: atraumatic, normocephalic - Eye Eye exam: Present: PERRL, conjuntiva pink, sclera anicteric Pupils: Present: PERRL - Neck Neck exam general surgery: Present: supple, trachea midline. Absent: lymphadenopathy - Respiratory Respiratory exam: Present: CTAB. Absent: accessory muscle use, rales, rhonchi, wheezes - Cardiovascular Cardiovascular exam: Present: irregular rhythm, +S1, +S2. Absent: diastolic murmur, gallop, rubs, systolic murmur - GI/Abdominal GI/Abdominal exam: Present: normal bowel sounds, soft, no peritoneal signs. Absent: distended, tenderness - Extremities Exam Extremities exam: Present: warm, radial pulses palpable and symmetrical. Absent: calf tenderness, cyanotic, pedal edema - Incison Comments: Right hip incision dressing dry and intact. - Neurological Exam Neurological exam: Present: CN II-XII intact, oriented X3, no focal deficits. Absent: pronater drift, facial droop, speech deficit - Skin Skin exam: Present: dry, intact - Patient Status Disposition: Transfer SNF Condition: Fair Functional capacity at discharge: wheelchair bound Overall status at discharge: patient is not back to baseline - Discharge Instructions Follow Up With: Tiffany Villasenor MD [Primary Care Provider] - - Diet and Activity Activity: as per physical therapy Diet: diabetic diet
[2018-11-18 11:58] VITALS: BP 137/80
[2018-11-18] MEDS ORDERED: amLODIPine 5 MG TABLET PO SCH (21:00)
[2018-11-19] MEDS ORDERED: Gadolinium Contrast Agent (WT Based) IV PRN (08:00)
== END 2018-11-18 12:44 ==
LOC: PREOBSVTOIN 14:48 → INPGRE 14:51 → INTOOBSV 14:51